=== PATIENT | male | born 1935 | race Caucasian/White ===

== ENCOUNTER → 2019-02-09 13:01 | Outpatient (CLI) | payer MEDICARE, SELFPAY ==
--- NOTE | 2019-02-09 13:15 | US_ITS ---
US Kidney CLINICAL INDICATION: ITS.REASON: ELEVATED KIDNEY FUNCTION, FATIGUE ORDERING PHYSICIAN: German Chacon PATIENT AGE: 83 years Comparison: None FINDINGS: The right kidney is 10 x 5 cm. No hydronephrosis or renal mass evident. There is mild cortical thinning. The left kidney is 11 x 5 cm with mild cortical thinning. There are 2 small cysts of left kidney one in the mid aspect 15 mm one in the lower pole at 17 mm . No hydronephrosis IMPRESSION: 1. No hydronephrosis. 2. Mild bilateral renal cortical thinning with 2 small left renal cysts
--- NOTE | 2019-02-09 13:15 | US_ITS ---
US urinary bladder CLINICAL INDICATION: ITS.REASON: ELEVATED KIDNEY FUNCTION, FATIGUE ORDERING PHYSICIAN: German Chacon PATIENT AGE: 83 years Comparison: None FINDINGS: Urinary bladder has an unremarkable appearance with a full bladder volume calculated to be 114 mL . Post void volume is calculated to be 16 mL's. No obvious bladder mass or other significant anomalies. IMPRESSION: Low full bladder volume of 115 mL with mild amount of postvoid residual urine otherwise negative urinary bladder ultrasound
[2019-02-09 14:10] LABS: Creatinine,Serum 1.77 mg/dL (0.70-1.30)
[2019-02-09 14:41] LABS: Collection Time,Urine 24 hours; Total Volume,Urine 1600 mL (250-2400)
[2019-02-09 14:47] LABS: Creatinine 24 Hour,Urine 1120 mg/24hr (630-2500); Creatinine,Urine Random 70 mg/dL (20-320); Patient Height,Urine 71 inches; Patient Weight,Urine 190 lbs
[2019-02-09 14:48] LABS: Total Protein 24 Hour,Urine 96 mg/24 hr (40-90); Total Protein,Urine Random < 6.0 mg/dL (0.0-11.9)
== END ==
PROVIDERS: Visit Provider Internal Medicine
DX: R94.4 Abnormal results of kidney function studies (principal); R53.83 Other fatigue
CPT/HCPCS: 36415; 76770; 76857; 82575; 84155

== ENCOUNTER → 2019-04-24 10:42 | Outpatient (CLI) | payer MEDICARE, SELFPAY ==
[2019-04-24 11:14] LABS: Microscopic, Urine URINE MICROSCOPIC (MICROSCOPIC)
[2019-04-24 12:33] LABS: Basophils % 0.7 % (0.1-2.0); Eosinophils # 0.5 K/mm3 (0.0-0.4); Eosinophils % 11.7 % (0.1-12.0); Hematocrit 37.3 % (42.0-52.0); Hemoglobin 12.1 g/dL (14.1-18.0); Lymphocytes # 1.3 K/mm3 (0.7-4.5); Lymphocytes % 28.1 % (10-50); Mean Corpuscular HGB Conc 32.4 g/dL (31.8-35.4); Mean Corpuscular Hemoglobin 31.8 pg (27.0-31.2); Mean Platelet Volume 9.5 fl (7.4-10.4); Monocytes # 0.3 K/mm3 (0.1-1.0); Monocytes % 6.7 % (1.7-9.3); Neutrophils # 2.4 K/mm3 (1.8-7.8); Neutrophils % 52.8 % (37.0-80.0); Platelet Count 110 K/mm3 (142-424); Red Blood Count 3.81 M/mm3 (4.60-6.20); Red Cell Distribution Width 14.7 % (11.5-17.5); White Blood Count 4.6 K/mm3 (4.8-10.8)
[2019-04-24 13:29] LABS: Albumin Level 3.9 gm/dL (3.4-5.0); Anion Gap 14.5 mEq/L (5-15); Blood Urea Nitrogen 40 mg/dL (7-18); Calcium 9.2 mg/dL (8.5-10.1); Carbon Dioxide 26 mmol/L (21.0-32.0); Chloride 108 mmol/L (98-107); Creatinine,Serum 1.69 mg/dL (0.70-1.30); Estimated Glomerular Filt Rate 39 ml/min (>60); GFR (African American) 47 ML/MIN (>60); Glucose 87 mg/dL (74-106); Phosphorous 3.7 mg/dL (2.4-4.9); Potassium 4.5 mmoL/L (3.5-5.1); Sodium 144 mmol/L (136-145)
[2019-04-24 14:52] LABS: Alanine Aminotransferase 20 U/L (12-78); Albumin Level 3.9 gm/dL (3.4-5.0); Albumin/Globulin Ratio 1.6 (1.1-1.8); Alkaline Phosphatase 90 U/L (46-116); Anion Gap 15.5 mEq/L (5-15); Aspartate Amino Transferase 11 U/L (15-37); Bilirubin,Total 0.5 mg/dL (0.2-1.0); Blood Urea Nitrogen 40 mg/dL (7-18); Calcium 9.2 mg/dL (8.5-10.1); Carbon Dioxide 24 mmol/L (21.0-32.0); Chloride 108 mmol/L (98-107); Chol/HDL Ratio 2.3 (1-3.5); Cholesterol 92 mg/dL (140-200); Creatinine,Serum 1.71 mg/dL (0.70-1.30); Estimated Glomerular Filt Rate 38 ml/min (>60); GFR (African American) 46 ML/MIN (>60); Globulin 2.5 gm/dl (1.3-3.2); Glucose 88 mg/dL (74-106); HDL Cholesterol 40 mg/dL (27-67); LDL Cholesterol 34 mg/dL (0-130); Potassium 4.5 mmoL/L (3.5-5.1); Sodium 143 mmol/L (136-145); Total Protein,Serum 6.4 gm/dL (6.4-8.2); Triglycerides 92 mg/dL (30-200); Uric Acid 3.3 mg/dL (2.6-7.2); VLDL Cholesterol 18 mg/dL (0-40)
[2019-04-24 16:00] LABS: Appearance,Urine CLEAR (Clear); Bilirubin,Urine Negative (Negative); Blood, Urine Negative (Negative); Color,Urine STRAW (Yellow); Glucose,Urine (UA) Negative (Negative); Ketones,Urine Negative (Negative); Leukocyte Esterase,Urine Negative (Negative); Nitrate,Urine Negative (Negative); PH,Urine 5.5 (5.0-8.5); Protein,Urine Negative (Negative); Urobilinogen,Urine 0.2 EU/dl (0.2)
[2019-04-24 16:05] LABS: Creatinine,Urine Random 27 mg/dL (20-320)
[2019-04-24 16:30] LABS: Bacteria,Urine Trace /lpf
[2019-04-25 18:43] LABS: Vitamin D 25 Hydroxy 34.7 ng/mL (30.0-100.0)
[2019-04-26 17:12] LABS: Parathyroid Hormone Intact 34 pg/mL (15-65)
== END ==
PROVIDERS: Internal Medicine; Visit Provider Internal Medicine Nephrology
DX: N18.3 Chronic kidney disease, stage 3 (moderate) (principal); E78.5 Hyperlipidemia, unspecified; I12.9 Hypertensive chronic kidney disease with stage 1 through stage 4 chronic kidney disease, or unspecified chronic kidney disease
CPT/HCPCS: 80053; 80061; 80069; 81001; 82570; 82652; 83970; 84155; 84550; 85025

== ENCOUNTER → 2019-04-29 14:08 | Outpatient (POV) | payer MEDICARE, SELFPAY | PROVIDERS: Visit Provider Internal Medicine Nephrology | DX: Z00.00 Encounter for general adult medical examination without abnormal findings (principal) ==

== ENCOUNTER → 2019-09-08 10:07 | Outpatient (CLI) | payer MEDICARE, SELFPAY ==
[2019-09-08 10:29] LABS: Basophils % 0.3 % (0.1-2.0); Eosinophils # 0.2 K/mm3 (0.0-0.4); Hematocrit 41.7 % (42.0-52.0); Hemoglobin 12.6 g/dL (14.1-18.0); Lymphocytes # 1.4 K/mm3 (0.7-4.5); Lymphocytes % 35.2 % (10-50); Mean Corpuscular HGB Conc 30.1 g/dL (31.8-35.4); Mean Corpuscular Hemoglobin 31.8 pg (27.0-31.2); Mean Corpuscular Volume 105.3 fl (80-94); Mean Platelet Volume 9.8 fl (7.4-10.4); Monocytes # 0.3 K/mm3 (0.1-1.0); Monocytes % 7.6 % (1.7-9.3); Platelet Count 119 K/mm3 (142-424); Red Blood Count 3.96 M/mm3 (4.60-6.20); Red Cell Distribution Width 14.8 % (11.5-17.5); White Blood Count 3.9 K/mm3 (4.8-10.8)
[2019-09-08 10:33] LABS: Creatinine,Urine Random 76 mg/dL (20-320); Total Protein,Urine Random 16.3 mg/dL (0.0-11.9)
[2019-09-08 12:04] LABS: Albumin Level 3.6 gm/dL (3.4-5.0); Anion Gap 12.2 mEq/L (5-15); Blood Urea Nitrogen 26 mg/dL (7-18); Calcium 8.9 mg/dL (8.5-10.1); Carbon Dioxide 29 mmol/L (21.0-32.0); Chloride 111 mmol/L (98-107); Creatinine,Serum 1.54 mg/dL (0.70-1.30); Estimated Glomerular Filt Rate 43 ml/min (>60); GFR (African American) 52 ML/MIN (>60); Glucose 92 mg/dL (74-106); Phosphorous 3.4 mg/dL (2.4-4.9); Potassium 5.2 mmoL/L (3.5-5.1); Sodium 147 mmol/L (136-145); Uric Acid 2.7 mg/dL (2.6-7.2)
== END ==
PROVIDERS: Visit Provider Internal Medicine Nephrology
DX: N18.3 Chronic kidney disease, stage 3 (moderate) (principal)
CPT/HCPCS: 36415; 80069; 82570; 84155; 84550; 85025

== ENCOUNTER → 2019-09-16 09:57 | Outpatient (POV) | payer MEDICARE, SELFPAY | PROVIDERS: Visit Provider Internal Medicine Nephrology | DX: Z00.00 Encounter for general adult medical examination without abnormal findings (principal) ==

== ENCOUNTER → 2021-05-16 09:13 | Outpatient (POV) | payer MEDICARE, SELFPAY | PROVIDERS: Visit Provider Nurse Practitioner Family | DX: Z00.00 Encounter for general adult medical examination without abnormal findings (principal) ==

== ENCOUNTER → 2021-05-30 10:24 | Outpatient (POV) | payer MEDICARE, SELFPAY | PROVIDERS: Visit Provider Dermatology | DX: Z00.00 Encounter for general adult medical examination without abnormal findings (principal) ==

== ENCOUNTER → 2021-06-20 13:19 | Outpatient (CLI) | payer MEDICARE, SELFPAY ==
--- NOTE | 2021-06-20 | ECG_ITS ---
APPROVED REPORT Exam: Resting ECG HR:47 bpm ECG Measurements Heart Rate 47 AXES AZ 218 P 69 QRSd 130 QRS 123 QT 474 T -5 QTc 419 Conclusion Marked sinus bradycardia with 1st degree AV block Nonspecific intraventricular block T wave abnormality, consider inferior ischemia Suspect limb lead error Abnormal ECG Electronically signed by : German Chacon MD 07/12/2021 16:08:53
== END ==
PROVIDERS: PCP Internal Medicine; Visit Provider Internal Medicine
DX: I49.9 Cardiac arrhythmia, unspecified (principal)
CPT/HCPCS: 93005

== ENCOUNTER → 2021-08-07 17:57 | Outpatient (CLI) | payer MEDICARE, SELFPAY ==
[2021-08-07 18:54] LABS: Alanine Aminotransferase 24 U/L (12-78); Albumin Level 3.8 g/dl (3.5-5.0); Albumin/Globulin Ratio 1.9 (1.1-1.8); Alkaline Phosphatase 71 U/L (38-126); Aspartate Amino Transferase 29 U/L (17-59); Bilirubin,Total 0.7 mg/dl (0.2-1.3); Blood Urea Nitrogen 28 mg/dl (9-20); Calcium 9.3 mg/dl (8.4-10.2); Carbon Dioxide 28 mmol/L (22.0-30.0); Chloride 108 mmol/L (98-107); Chol/HDL Ratio 2.5 (1-3.5); Cholesterol 120 mg/dl (140-200); Estimated Glomerular Filt Rate 52 ml/min (>60); GFR (African American) 63 ML/MIN (>60); Glucose 71 mg/dl (74-100); HDL Cholesterol 48 mg/dl (40-60); Sodium 143 mmol/L (136-145); Total Protein,Serum 5.8 g/dl (6.3-8.2); Triglycerides 135 mg/dl (30-150); Uric Acid 3.8 mg/dl (3.5-8.5); VLDL Cholesterol 27 mg/dL (0-40)
[2021-08-07 19:05] LABS: Direct LDL Cholesterol 45.06 mg/dL (100-129)
== END ==
PROVIDERS: Visit Provider Internal Medicine
DX: I25.10 Atherosclerotic heart disease of native coronary artery without angina pectoris (principal); I10 Essential (primary) hypertension; E78.5 Hyperlipidemia, unspecified; I73.9 Peripheral vascular disease, unspecified; J44.9 Chronic obstructive pulmonary disease, unspecified; M10.9 Gout, unspecified
CPT/HCPCS: 80053; 80061; 84550

== ENCOUNTER 2021-12-11 10:50 | Inpatient (IN) | payer MEDICARE, SELFPAY ==
[2021-12-11] VITALS (20 sets, daily range): BP systolic 115–172; BP diastolic 51–65; PULSE 53–76; RESP 14–22; TEMP 36.6–36.9; O2SAT 94–99; BMI 25.0; BMI 23.6
--- NOTE | 2021-12-11 10:50 | PC.NURSE ---
ED MD at
--- NOTE | 2021-12-11 11:05 | XR_ITS ---
FINAL REPORT CLINICAL HISTORY: upper abdomen/chest pain COMPARISON: November 15, 2016 FINDINGS: A single portable view of the chest was obtained. The heart size and pulmonary vascularity are within normal limits. There is evidence of median sternotomy. There is mild scarring. There is a chronic left 5th lateral rib fracture. IMPRESSION: No active cardiopulmonary disease. Reviewed, Interpreted and Dictated by Soren Cruz III, MD Transcribed by Savanna العلي Authenticated by Soren Cruz III, MD on 12/11/2021 12:54:30 PM [facility]
--- NOTE | 2021-12-11 11:41 | PC.NURSE ---
Radiology at bedside
--- NOTE | 2021-12-11 11:58 | HMH.EDGENADL ---
ED Disposition Clinical Impression: Small bowel obstruction Disposition: Home, Self-Care Condition on Discharge: Good Instructions: DI for Acute Abdominal Pain Referrals: German Chacon [Primary Care Provider] - - Critical Care Critical Care Time: Yes Attestation: On 12/11/21, the high probability of a clinically significant, sudden or life threatening deterioration of the following system(s) required my full and direct attention, intervention and personal management. The time I documented below is in addition to time spent performing reported procedures but includes the following listed in this critical care notation. Total Critical Care Time: 60 Vital system(s) involved:: Metabolic Failure My critical care processes included: Assessment & monitoring of V/S, Initial and Re-exams, Data Review/Interpretation, Coordinating Care, Medication Orders and management, Documentation Medical Decision Making - Medical Records Medical records reviewed: Yes: I reviewed the patient's medical records. - Noel Inquiry Pt receiving controlled substance: Yes Noel was queried for this patient: No Risks and benefits of using a controlled substance: were not discussed with pt by me Vital Signs: 12/11/21 10:45 12/11/21 12:08 12/11/21 12:15 Temperature 97.8 F Temperature Source Oral Pulse Rate 69 71 Pulse Rate [Left Radial] 53 L Respiratory Rate 17 17 14 Blood Pressure Blood Pressure [Right Arm] 150/56 H Blood Pressure Mean Blood Pressure Mean [Right Arm] 87 02 Sat by Pulse Oximetry 96 98 96 Oxygen Delivery Method Room Air Oxygen Flow Rate (LPM) 12/11/21 12:30 12/11/21 12:45 12/11/21 14:35 Temperature Temperature Source Pulse Rate 66 68 72 Pulse Rate [Left Radial] Respiratory Rate 22 18 Blood Pressure 160/55 H 157/57 H Blood Pressure [Right Arm] Blood Pressure Mean 120 Blood Pressure Mean [Right Arm] 02 Sat by Pulse Oximetry 98 99 Oxygen Delivery Method Oxygen Flow Rate (LPM) 12/11/21 17:11 12/11/21 18:24 Temperature Temperature Source Pulse Rate 65 73 Pulse Rate [Left Radial] Respiratory Rate 15 Blood Pressure 161/62 H 172/65 H Blood Pressure [Right Arm] Blood Pressure Mean Blood Pressure Mean [Right Arm] 02 Sat by Pulse Oximetry 97 97 Oxygen Delivery Method Nasal Cannula Oxygen Flow Rate (LPM) 2 - Lab Data Lab results reviewed: Yes: I reviewed the patient's lab results. Lab Results 12/11/21 11:27: WBC 7.0, RBC 4.19 L, Hgb 13.8 L, Hct 43.1, MCV 102.8 H, MCH 32.9 H, MCHC 32.0, RDW 14.6, Plt Count 104 L, MPV 10.2, Neut % (Auto) 89.2 H, Lymph % (Auto) 6.3 L, Gregory % (Auto) 3.3, Eos % (Auto) 0.7, Baso % (Auto) 0.5, Neut # (Auto) 6.2, Lymph # (Auto) 0.4 L, Gregory # (Auto) 0.2, Eos # (Auto) 0.1, Baso # (Auto) 0.0, Total Counted 100, Neutrophils % (Manual) 88 H, Lymphocytes % (Manual) 8 L, Monocytes % (Manual) 4, Platelet Estimate Moderate decrease, Macrocytosis 1+ 12/11/21 11:27: Magnesium 1.1 L, Troponin I 0.02, NT-Pro-B Natriuret Pep 2730 H 12/11/21 11:27: Lactate 0.8 12/11/21 11:27: Blood Type O Positive, Antibody Screen Negative 12/11/21 11:27: Lipase 40 12/11/21 11:35: PT 10.1, INR 0.95 12/11/21 11:35: BUN 25 H, Creatinine 1.30 H, Estimated Creat Clear 49, Estimated GFR 52 L, Est GFR ( Amer) 63 12/11/21 11:35: Sodium 142, Potassium 4.6, Chloride 110 H, Carbon Dioxide 24, Anion Gap 12.6, BUN 26 H, Creatinine 1.30 H, Estimated Creat Clear 49, Estimated GFR 52 L, Est GFR ( Amer) 63, Glucose 148 H, Calcium 9.1, Total Bilirubin 0.6, AST 33, ALT 24, Alkaline Phosphatase 87, Total Protein 6.7, Albumin 4.4, Globulin 2.3, Albumin/Globulin Ratio 1.9 H 12/11/21 14:16: Troponin I 0.01 12/11/21 14:29: SARS-CoV-2 (PCR) Not detected, Influenza A Untype (PCR) Not detected, Influenza Type B (PCR) Not detected 12/11/21 19:15: Lactate 0.6 L 12/11/21 19:45: Urine Color Yellow, Urine Appearance Clear, Urine pH 5.5, Ur Specific [place] 1.015, Urine Protein Negati
[2021-12-11 12:04] LABS: Lactic Acid 0.8 mmol/L (0.7-2.1)
[2021-12-11 12:13] LABS: Basophils % 0.5 % (0.1-2.0); Eosinophils # 0.1 K/mm3 (0.0-0.4); Eosinophils % 0.7 % (0.1-12.0); Hematocrit 43.1 % (42.0-52.0); Hemoglobin 13.8 g/dL (14.1-18.0); Lymphocytes # 0.4 K/mm3 (0.7-4.5); Lymphocytes % 6.3 % (10-50); Mean Corpuscular Hemoglobin 32.9 pg (27.0-31.2); Mean Corpuscular Volume 102.8 fl (80-94); Mean Platelet Volume 10.2 fl (7.4-10.4); Monocytes # 0.2 K/mm3 (0.1-1.0); Monocytes % 3.3 % (1.7-9.3); Neutrophils # 6.2 K/mm3 (1.8-7.8); Neutrophils % 89.2 % (37.0-80.0); Platelet Count 104 K/mm3 (142-424); Red Blood Count 4.19 M/mm3 (4.60-6.20); Red Cell Distribution Width 14.6 % (11.5-17.5)
[2021-12-11 12:15] LABS: Lipase 40 U/L (23-300); Magnesium 1.1 mg/dl (1.6-2.3)
[2021-12-11 12:18] LABS: MANUAL DIFFERENTIAL MANUAL DIFFERENTIAL (MANUAL DIFF)
[2021-12-11 12:27] LABS: NT Pro Brain Natriuretic Pep. 2730 pg/mL (0-450); Troponin I 0.02 ng/ml (0.00-0.034)
[2021-12-11 13:11] LABS: Blood Urea Nitrogen 25 mg/dl (9-20); Creatinine Clearance Estimated 49 mL/min (50-200); Estimated Glomerular Filt Rate 52 ml/min (>60); GFR (African American) 63 ML/MIN (>60)
[2021-12-11 13:21] LABS: Lymphocytes % 8 % (10-50); Monocytes % 4 % (2-9); Neutrophils % 88 % (42-76); Platelet Estimate Moderate Decrease; Total Cells Counted 100
[2021-12-11 13:22] LABS: Macrocytosis 1+
[2021-12-11 13:42] LABS: INR 0.95 (0.9-1.1); Prothrombin Time 10.1 seconds (9.2-12.1)
--- NOTE | 2021-12-11 13:49 | PC.NURSE ---
patient to CT with health physics technician
--- NOTE | 2021-12-11 13:56 | PC.NURSE ---
Addendum entered by Safia Galenao 12/11/21 13:57: Patient refused CTA; MD aware and is talking with vascular at this time Original Note: patient back to room from CT
--- NOTE | 2021-12-11 13:56 | HMH.ITSTN ---
sPOKE TO THE ER DR Patient refused contrast and scan. The ER Dr came and talked to him about it but he did not want to do the contrast or the scan. She is going to go over with family and come back. hold for now
--- NOTE | 2021-12-11 14:08 | US_ITS ---
FINAL REPORT CLINICAL HISTORY: patient refused CT in ER today; AAA screen and confirm patency in aorta FINDINGS: Limited sonographic images were obtained of the abdomen to evaluate the abdominal aorta and iliac arteries. The abdominal aorta measures up to 3.2 cm in greatest dimension. There is mild mural thrombus. The iliac arteries are within normal limits. IMPRESSION: 3.2 cm abdominal aortic ectasia with mild mural thrombus. Reviewed, Interpreted and Dictated by Soren Cruz III, MD Transcribed by Lou Kellogg Authenticated by Soren Cruz III, MD on 12/11/2021 04:55:15 PM [facility]
--- NOTE | 2021-12-11 14:23 | PC.NURSE ---
Ultrasound at bedside
--- NOTE | 2021-12-11 14:23 | PC.NURSE ---
2nd troponin sent to lab at 14:15
--- NOTE | 2021-12-11 14:47 | ECG_ITS ---
APPROVED REPORT Exam: Resting ECG HR:72 bpm ECG Measurements Heart Rate 72 AXES AR 230 P 93 QRSd 137 QRS 100 QT 398 T -38 QTc 422 Conclusion SINUS RHYTHM WITH FIRST DEGREE AV BLOCK WITH OCCASIONAL VENTRICULAR PREMATURE COMPLEXES BORDERLINE RIGHT AXIS DEVIATION [QRS AXIS > 90] INTRAVENTRICULAR CONDUCTION DELAY [130+ ms QRS DURATION] ABNORMAL ECG UNCONFIRMED REPORT Electronically signed by : Alex Mckeon MD 12/12/2021 14:07:24
[2021-12-11 14:55] LABS: Coronavirus 19, PCR Not Detected (NotDetected); Influenza A, PCR Not Detected (NotDetected); Influenza B, PCR Not Detected (NotDetected)
[2021-12-11 15:05] LABS: Troponin I 0.01 ng/ml (0.00-0.034)
--- NOTE | 2021-12-11 15:32 | CT_ITS ---
FINAL REPORT CLINICAL HISTORY: abd pain// history of an AAA repair years ago FINDINGS: CTA ABDOMEN AND PELVIS Post contrast axial imaging of the abdomen and pelvis was obtained utilizing a CTA protocol. Coronal and sagittal reformatted images were submitted. This study was performed with techniques to keep radiation doses as low as reasonably achievable (ALARA). Individualized dose reduction techniques using automated exposure control or adjustment of mA and/or kV according to the patient's size were employed. There are severe changes of emphysema with mild scarring. There is mild bibasilar atelectasis. There is a small amount of ascites in the upper abdomen. The liver has an irregular contour that may represent cirrhosis. There has been cholecystectomy. There is mild biliary ductal dilatation. There are small right renal cysts. There is a fat containing nodule in the left adrenal gland measuring 19 mm consistent with a myelolipoma. There are distended fluid-filled small bowel loops in the lower abdomen and upper pelvis measuring up to 3.1 cm in diameter. These are most worrisome for closed loop small bowel obstruction. There is edema in the small bowel mesentery in this region. There is diverticulosis of the sigmoid colon. The appendix is normal. There is a 3.5 cm infrarenal abdominal aortic aneurysm. There is mild stenosis at the origin of the left renal artery, less than 50%. The DRE is occluded. 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 There is an 18 mm left common iliac artery aneurysm. There appears to be a focal dissection of the proximal left common iliac artery. 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 IMPRESSION: Findings most worrisome for closed loop small bowel obstruction. Occlusion of the DRE. 3.5 cm infrarenal abdominal aortic aneurysm with a focal chronic dissection. Aneurysmal dilatation of the bilateral common iliac arteries with an apparent focal dissection of the proximal left common iliac artery. 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 Reviewed, Interpreted and Dictated by Soren Cruz III, MD Transcribed by Matthew Vargas Authenticated by Soren Cruz III, MD on 12/11/2021 04:55:24 PM [facility]
--- NOTE | 2021-12-11 15:39 | PC.NURSE ---
patient to CT with rad techs
--- NOTE | 2021-12-11 15:51 | PC.NURSE ---
patient back from CT with rad techs
--- NOTE | 2021-12-11 17:32 | PC.NURSE ---
pt spoke with dr oakley regarding pt ct scan. dr oakley states this is not a surgical candidate here and needs to be transferred.
--- NOTE | 2021-12-11 17:57 | PC.NURSE ---
Calling [facility] for ED MD
--- NOTE | 2021-12-11 18:07 | PC.NURSE ---
ROMANA SALAMANCA on phone with Dr. Terrazas with
--- NOTE | 2021-12-11 18:31 | PC.NURSE ---
ED MD on phone with MDs
--- NOTE | 2021-12-11 18:32 | PC.NURSE ---
[facility] requested [employer] of images. rad called to send images
--- NOTE | 2021-12-11 18:37 | PC.NURSE ---
Paged Dr. Gr for ED MD
--- NOTE | 2021-12-11 18:38 | PC.NURSE ---
ROMANA MD on phone with Dr. Gr
--- NOTE | 2021-12-11 19:09 | PC.NURSE ---
NARINDER SALAMANCA SPOKE WITH MATTHEW @ [facility] THEY DO NOT THINK HE IS A A SURGICAL CANDIDATE AT THIS TIME , CALLED DR GABRIEL BACK HE SAID HE WILL CONSULT IF ADMITTED . REPEAT LACTIC BEING DRAWN AND GAURI SPOKE WITH DR BLOOM REGARDING POSSIBLE ADMISSION
[2021-12-11 19:41] LABS: Lactic Acid 0.6 mmol/L (0.7-2.1)
[2021-12-11 19:51] LABS: Microscopic, Urine URINE MICROSCOPIC (MICROSCOPIC)
[2021-12-11 20:08] LABS: Appearance,Urine CLEAR (Clear); Bilirubin,Urine Negative (Negative); Blood, Urine Negative (Negative); Color,Urine YELLOW (Yellow); Glucose,Urine (UA) Negative (Negative); Ketones,Urine Negative (Negative); Leukocyte Esterase,Urine Negative (Negative); Nitrate,Urine Negative (Negative); PH,Urine 5.5 (5.0-8.5); Protein,Urine Negative (Negative); Specific Gravity, Urine 1.015 (1.005-1.030); Urobilinogen,Urine 0.2 EU/dl (0.2)
[2021-12-11 20:16] LABS: Bacteria,Urine Trace /lpf; Squamous Epithelial Cell,Urine Occasional #/hpf (0-5)
[2021-12-11 20:38] LABS: Alanine Aminotransferase 24 U/L (12-78); Albumin Level 4.4 g/dl (3.5-5.0); Albumin/Globulin Ratio 1.9 (1.1-1.8); Alkaline Phosphatase 87 U/L (38-126); Anion Gap 12.6 mEq/L (5-15); Aspartate Amino Transferase 33 U/L (17-59); Bilirubin,Total 0.6 mg/dl (0.2-1.3); Blood Urea Nitrogen 26 mg/dl (9-20); Calcium 9.1 mg/dl (8.4-10.2); Carbon Dioxide 24 mmol/L (22.0-30.0); Chloride 110 mmol/L (98-107); Creatinine Clearance Estimated 49 mL/min (50-200); Estimated Glomerular Filt Rate 52 ml/min (>60); GFR (African American) 63 ML/MIN (>60); Globulin 2.3 g/dL (1.3-3.2); Glucose 148 mg/dl (74-100); Potassium 4.6 mmoL/L (3.5-5.1); Sodium 142 mmol/L (136-145); Total Protein,Serum 6.7 g/dl (6.3-8.2)
--- NOTE | 2021-12-11 22:56 | PC.NURSE ---
patient up to floor via stretcher at this time.
[2021-12-12] VITALS (7 sets, daily range): BP systolic 120–178; BP diastolic 64–82; PULSE 73–89; RESP 16–20; TEMP 36.4–36.9; O2SAT 90–96; BMI 23.6
--- NOTE | 2021-12-12 06:30 | XR_ITS ---
PROCEDURE INFORMATION: Exam: XR Complete Acute Abdomen Series Including Chest Exam date and time: 12/12/2021 6:30 AM Age: 86 years old Clinical indication: Abdominal pain; Additional info: Abd TECHNIQUE: Imaging protocol: XR complete acute abdomen series, including 2 or more views of the abdomen and a single view chest. COMPARISON: CR XR CHEST PORTABLE 12/11/2021 11:37 AM FINDINGS: Tubes, catheters and devices: Surgical clips, RUQ. Lungs: Mild linear atelectasis/fibrosis. No new focal consolidation. Old left rib fracture laterally. Pleural spaces: Trace right pleural effusion. No pneumothorax. Heart/Mediastinum: Sternotomy. CABG. Gastrointestinal tract: Mild to moderately dilated loops of small bowel are noted which appear grossly similar to the psychological science professor image from CT 12/11/2021. Findings are compatible with at least a small bowel obstruction. Some colonic gas is noted. Intraperitoneal space: No free air. Organs: Contrast noted in the urinary bladder from a prior exam. Vasculature: Vascular calcifications. Bones/joints: No acute fracture. Soft tissues: Normal. IMPRESSION: 1. Mild to moderately dilated loops of small bowel are noted which appear grossly similar to the psychological science professor image from CT 12/11/2021. Findings are compatible with at least a small bowel obstruction. 2. Trace right pleural effusion.
[2021-12-12 07:09] LABS: Anion Gap 9.4 mEq/L (5-15); Blood Urea Nitrogen 22 mg/dl (9-20); Calcium 8.6 mg/dl (8.4-10.2); Carbon Dioxide 25 mmol/L (22.0-30.0); Chloride 113 mmol/L (98-107); Creatinine Clearance Estimated 50 mL/min (50-200); Estimated Glomerular Filt Rate 58 ml/min (>60); GFR (African American) 70 ML/MIN (>60); Glucose 88 mg/dl (74-100); Potassium 4.4 mmoL/L (3.5-5.1); Sodium 143 mmol/L (136-145)
[2021-12-12 07:10] LABS: Basophils % 0.2 % (0.1-2.0); Eosinophils # 0.1 K/mm3 (0.0-0.4); Eosinophils % 1.1 % (0.1-12.0); Hematocrit 40.7 % (42.0-52.0); Hemoglobin 12.6 g/dL (14.1-18.0); Lymphocytes % 18.2 % (10-50); Mean Corpuscular Hemoglobin 32.4 pg (27.0-31.2); Mean Corpuscular Volume 104.4 fl (80-94); Mean Platelet Volume 10.1 fl (7.4-10.4); Monocytes # 0.4 K/mm3 (0.1-1.0); Monocytes % 8.1 % (1.7-9.3); Neutrophils # 3.8 K/mm3 (1.8-7.8); Neutrophils % 72.4 % (37.0-80.0); Platelet Count 98 K/mm3 (142-424); Red Cell Distribution Width 14.7 % (11.5-17.5); White Blood Count 5.3 K/mm3 (4.8-10.8)
--- NOTE | 2021-12-12 07:23 | P.CONPHA_ITS ---
[facility] Pharmacy VTE Monitoring - Patient Demographics Admission date: 12/11/21 Report Date: 12/12/21 Time: 07:24 Allergies/Adverse Reactions: Patient Allergies No Known Allergies Allergy (Verified 09/07/19 15:29) Height: 1.83 m Weight: 79.095 kg Patient Problems: Current Active Problems Small bowel obstruction (Acute) - VTE Risk Labs: VTE Related Lab Results Hgb 12.6 g/dL (14.1-18.0) L 12/12/21 05:58 Hct 40.7 % (42.0-52.0) L 12/12/21 05:58 Plt Count 98 K/mm3 (142-424) L 12/12/21 05:58 PT 10.1 seconds (9.2-12.1) 12/11/21 11:35 INR 0.95 (0.9-1.1) 12/11/21 11:35 BUN 22 mg/dl (9-20) H 12/12/21 05:58 Creatinine 1.20 mg/dl (0.66-1.25) 12/12/21 05:58 Estimated Creat Clear 50 mL/min (50-200) 12/12/21 05:58 Was VTE Risk Assessment Performed: Yes VTE Score: 6 VTE Risk Level: Moderate Risk Clinical Trial Participant: No - Prophylaxis VTE Prophylaxis Ordered?: Yes Types of VTE Prophylaxis: TEDS Knee High
--- NOTE | 2021-12-12 08:22 | HMH.GSCON ---
*Admission Date: 12/11/21 *Reason for consult:: Bowel obstruction *History of present illness: Patient is an 86-year-old male with apparent prior history of abdominal aortic aneurysm repair via midline incision. He presented to the emergency department yesterday afternoon with complaints of periumbilical pain radiating into his back. He had no associated nausea or vomiting. He was found to have some mild tenderness in the periumbilical location on examination. Initially the patient was refusing imaging in the emergency department. He did ultimately undergo CT scan of the abdomen and pelvis which interestingly revealed findings concerning for closed-loop small bowel obstruction, occlusion of DRE, infrarenal abdominal aortic aneurysm repair with chronic focal dissection and bilateral common iliac artery with focal dissection. Surgery was contacted regarding the small bowel obstruction. Given the patient's other findings on CT scan with vascular comorbidities it was recommended the patient may need transfer. [facility] vascular surgery was contacted by the ER physician and felt that the vascular findings were chronic in nature and that bowel obstruction could be handled by local general surgeon. Patient was admitted for inpatient management and surgical consultation. Since admission patient feels better. His periumbilical pain has resolved. He does state that he is passing gas. Review of Systems - Review of Systems Review of systems:: unable to obtain - *Neurologic Denies localized weakness, Denies headache(s), Denies numbness, Denies fainting [facility] History I have reviewed the patient's past medical history: Yes Medical History: Reports:: Cancer (SKIN), Congestive Heart Failure, Coronary Artery Disease, Hyperlipidemia, Hypertension Denies:: Diabetes Mellitus Type 1, Diabetes Mellitus Type 2, Internal Pacemaker, MRSA, Seizures *Have you ever received a pneumonia vaccine?: Yes *Have you received a flu vaccine this season?: Yes Other Medical History: Reports: Arthritis. Denies: Blood Transfusion Reaction Other Surgeries: Yes: CABG, Cholecystectomy, Skin Cancer Excision, Other. No: Pacemaker Amputation: No Fractures: No - *Social History Smoking Status: Former smoker Alcohol Intake: never Substance Use Type: denies use *Occupational Status:: retired Housing: house *Travel in the last 8 weeks: None Family Hx:: Hypertension, Stroke, Other Meds Home Medications Medication Instructions Recorded Confirmed Type allopurinol 300 mg tablet 300 mg PO DAILY #90 tab 08/17/19 12/11/21 History amlodipine 10 mg tablet 10 mg PO AM #90 tab 08/17/19 12/11/21 History amlodipine 5 mg tablet 5 mg PO DAILY #90 tab 08/17/19 12/11/21 History colchicine 0.6 mg tablet 0.6 mg PO DAILY #90 tab 08/17/19 12/11/21 History ferrous sulfate 325 mg (65 mg 325 mg PO TID PRN #270 tab 08/17/19 12/11/21 History iron) tablet furosemide 40 mg tablet 20 mg PO DAILY #45 tab 08/17/19 12/11/21 History hydrochlorothiazide 25 mg tablet 25 mg PO DAILY #90 tab 08/17/19 12/11/21 History isosorbide mononitrate 30 mg 30 mg PO DAILY #90 tab 08/17/19 12/11/21 History tablet,extended release 24 hr losartan 100 mg tablet 100 mg PO DAILY #90 tab 08/17/19 12/11/21 History lovastatin 40 mg tablet 40 mg PO HS #90 tab 08/17/19 12/11/21 History metoprolol succinate 100 mg 100 mg PO DAILY #90 tab 08/17/19 12/11/21 History tablet,extended release 24 hr potassium chloride 20 mEq 40 meq PO DAILY #180 tab 08/17/19 12/11/21 History tablet,extended release(part/cryst) Albuterol Sulfate [Proventil-HFA 2 puffs IH QID 12/11/21 12/11/21 History 90mcg/puff Inh] Aspirin [Aspirin 81mg EC Tab] 81 mg PO DAILY 12/11/21 12/11/21 History Allergies Allergy/AdvReac Type Severity Reaction Status Date / Time No Known Allergies Allergy Verified 09/07/19 15:29 Exam Vital signs and Labs for Last 24 Hours: Temp Pulse Resp BP Pulse Ox 98.1 F 73
--- NOTE | 2021-12-12 08:26 | HMH.PHAINT ---
Home med rec complete
--- NOTE | 2021-12-12 20:02 | PC.NURSE ---
Pt has rested well in his room. he refused to get up to the chair or ambulate this shift. pt has elisa hose in place. lungs are clear, bowels active, no bm this shift. pt able to ambulate with standby. nad noted. pt is [employer] but pleasant
--- NOTE | 2021-12-12 20:42 | HMH.HP ---
*Admission Date: 12/11/21 *Chief complaint: Abdominal Pain *History of present illness: Patient is an 86-year-old male with a history significant for CAD s/p 5 vessel CABG, AAA s/p repair is presenting for chief complaint of periumbilical abdominal pain with radiation to the back since 4 AM this morning. Patient states he has been in his usual state of health yesterday. Associated symptoms include nausea but patient denies vomiting, hematemesis, blood per rectum. He had a normal bowel movement yesterday but states that since that he has had difficulty passing anything including gas. Denies difficulty urinating, hematuria. Denies fever, infectious symptoms, chest pain, shortness of breath. Patient has COPD and does not use oxygen baseline at home. Denies blood thinner use aside from daily aspirin (Per Rocio Johnson MD) 12/11/21 Abd/Pelvis CT: FINDINGS: CTA ABDOMEN AND PELVIS Post contrast axial imaging of the abdomen and pelvis was obtained utilizing a CTA protocol. Coronal and sagittal reformatted images were submitted. This study was performed with techniques to keep radiation doses as low as reasonably achievable (ALARA). Individualized dose reduction techniques using automated exposure control or adjustment of mA and/or kV according to the patient's size were employed. There are severe changes of emphysema with mild scarring. There is mild bibasilar atelectasis. There is a small amount of ascites in the upper abdomen. The liver has an irregular contour that may represent cirrhosis. There has been cholecystectomy. There is mild biliary ductal dilatation. There are small right renal cysts. There is a fat containing nodule in the left adrenal gland measuring 19 mm consistent with a myelolipoma. There are distended fluid-filled small bowel loops in the lower abdomen and upper pelvis measuring up to 3.1 cm in diameter. These are most worrisome for closed loop small bowel obstruction. There is edema in the small bowel mesentery in this region. There is diverticulosis of the sigmoid colon. The appendix is normal. There is a 3.5 cm infrarenal abdominal aortic aneurysm. There is mild stenosis at the origin of the left renal artery, less than 50%. The DRE is occluded. 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 There is an 18 mm left common iliac artery aneurysm. There appears to be a focal dissection of the proximal left common iliac artery. 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 IMPRESSION: Findings most worrisome for closed loop small bowel obstruction. Occlusion of the DRE. 3.5 cm infrarenal abdominal aortic aneurysm with a focal chronic dissection. Aneurysmal dilatation of the bilateral common iliac arteries with an apparent focal dissection of the proximal left common iliac artery. 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 Reviewed, Interpreted and Dictated by Soren Cruz III, MD . [facility] History I have reviewed the patient's past medical history: Yes Medical History: Reports:: Cancer (SKIN), Congestive Heart Failure, Coronary Artery Disease, Hyperlipidemia, Hypertension Denies:: Diabetes Mellitus Type 1, Diabetes Mellitus Type 2, Internal Pacemaker, MRSA, Seizures *Have you ever received a pneumonia vaccine?: Yes *Have you received a flu vaccine this season?: Yes Other Medical History: Reports: Arthritis. Denies: Blood Transfusion Reaction Other Surgeries: Yes: CABG, Cholecystectomy, Skin Cancer Excision, Other. No: Pacemaker Amputation: No Fractures: No - *Social History Smoking Status: Former smoker Alcohol Intake: never Substance Use Type: denies use *Occupational Status:: retired Housing: house *Travel in the last 8 weeks: None Family Hx:: Hypertension, Stroke, Other Review of Systems - Review of Systems Review of systems:: pertinent systems reviewed and negative unless documented below - Constitutional Denies body ache(
[2021-12-13] VITALS: BP 145/58; PULSE 83; RESP 20; TEMP 37.3; O2SAT 90
[2021-12-13 04:00] VITALS: BP 157/43; PULSE 92; RESP 16; TEMP 36.8; O2SAT 94
[2021-12-13 06:00] VITALS: BMI 24.0
--- NOTE | 2021-12-13 06:00 | FL_ITS ---
FINAL REPORT CLINICAL HISTORY: . small bowel obstruction FINDINGS: SMALL BOWEL FOLLOW THROUGH HISTORY: Generalized abdominal pain. Abnormal CT. PROCEDURE: The patient ingested Gastrografin. Serial radiographs films were obtained. 8 radiographs were obtained. FINDINGS: Preliminary plastic cutter film demonstrates gas throughout small bowel loops. Transit time to the colon is normal at 2 hours. Proximal small bowel loops are dilated. There are decompressed distal small bowel loops. IMPRESSION: Findings consistent with partial small bowel obstruction. Films reviewed , interpreted and dictated by Dr. Cruz. Transcribed by José Luis Yeager PA-C. Reviewed, Interpreted and Dictated by Soren Cruz III, MD Transcribed by KNADIS Abad Authenticated by Soren Cruz III, MD on 12/13/2021 12:24:[address] [facility]
[2021-12-13 06:49] LABS: Basophils % 0.3 % (0.1-2.0); Eosinophils # 0.2 K/mm3 (0.0-0.4); Eosinophils % 2.7 % (0.1-12.0); Hematocrit 41.2 % (42.0-52.0); Hemoglobin 12.6 g/dL (14.1-18.0); Lymphocytes # 1.5 K/mm3 (0.7-4.5); Lymphocytes % 26.7 % (10-50); Mean Corpuscular HGB Conc 30.6 g/dL (31.8-35.4); Mean Corpuscular Hemoglobin 32.5 pg (27.0-31.2); Mean Corpuscular Volume 106.1 fl (80-94); Mean Platelet Volume 10.9 fl (7.4-10.4); Monocytes # 0.4 K/mm3 (0.1-1.0); Monocytes % 7.1 % (1.7-9.3); Neutrophils # 3.6 K/mm3 (1.8-7.8); Neutrophils % 63.2 % (37.0-80.0); Platelet Count 97 K/mm3 (142-424); Red Blood Count 3.89 M/mm3 (4.60-6.20); Red Cell Distribution Width 14.7 % (11.5-17.5); White Blood Count 5.7 K/mm3 (4.8-10.8)
[2021-12-13 07:15] LABS: Anion Gap 9.1 mEq/L (5-15); Blood Urea Nitrogen 20 mg/dl (9-20); Calcium 8.9 mg/dl (8.4-10.2); Carbon Dioxide 25 mmol/L (22.0-30.0); Chloride 112 mmol/L (98-107); Creatinine Clearance Estimated 62 mL/min (50-200); Estimated Glomerular Filt Rate 71 ml/min (>60); GFR (African American) 86 ML/MIN (>60); Glucose 79 mg/dl (74-100); Potassium 4.1 mmoL/L (3.5-5.1); Sodium 142 mmol/L (136-145)
--- NOTE | 2021-12-13 07:16 | P.PN_ITS ---
Subjective Narrative: Overall doing okay . He is currently in the bathroom and states that he is having some activity . He is reportedly passing flatus and has had at least some form of a bowel movement. Progress Note: A&P (1) Small bowel obstruction Status: Acute Assessment and plan: Likely resolving versus partial/incomplete. He is currently having some return of bowel function. Small bowel follow-through ordered for today (still reasonable to obtain for improved diagnostic accuracy despite some clinical improvement). (2) CAD (coronary artery disease) Status: Acute (3) HTN (hypertension) Status: Acute (4) HLD (hyperlipidemia) Status: Acute (5) S/P AAA repair using bifurcation graft Status: Acute Exam Vital signs and Labs for Last 24 Hours: Temp Pulse Resp BP Pulse Ox 98.3 F 92 H 16 157/43 H 94 L 12/13/21 04:00 12/13/21 04:00 12/13/21 04:00 12/13/21 04:00 12/13/21 04:00 Laboratory Results - last 24 hr 12/12/21 05:58: WBC 5.3, RBC 3.90 L, Hgb 12.6 L, Hct 40.7 L, MCV 104.4 H, MCH 32.4 H, MCHC 31.0 L, RDW 14.7, Plt Count 98 L, MPV 10.1, Neut % (Auto) 72.4, Lymph % (Auto) 18.2, [place] % (Auto) 8.1, Eos % (Auto) 1.1, Baso % (Auto) 0.2, Neut # (Auto) 3.8, Lymph # (Auto) 1.0, [place] # (Auto) 0.4, Eos # (Auto) 0.1, Baso # (Auto) 0.0 12/12/21 05:58: Sodium 143, Potassium 4.4, Chloride 113 H, Carbon Dioxide 25, Anion Gap 9.4, BUN 22 H, Creatinine 1.20, Estimated Creat Clear 50, Estimated GFR 58 L, Est GFR ( Amer) 70, Glucose 88 D, Calcium 8.6 12/13/21 06:12: WBC 5.7, RBC 3.89 L, Hgb 12.6 L, Hct 41.2 L, MCV 106.1 H, MCH 32.5 H, MCHC 30.6 L, RDW 14.7, Plt Count 97 L, MPV 10.9 H, Neut % (Auto) 63.2, Lymph % (Auto) 26.7, [place] % (Auto) 7.1, Eos % (Auto) 2.7, Baso % (Auto) 0.3, Neut # (Auto) 3.6, Lymph # (Auto) 1.5, [place] # (Auto) 0.4, Eos # (Auto) 0.2, Baso # (Auto) 0.0 I & O for Last 24 hours: Intake & Output 12/10/21 12/11/21 12/12/21 12/13/21 11:59 11:59 11:59 11:59 Output Total 300 / 300 675 / 675 Balance -300 / -300 -675 / -675 Weight 185 lb 174 lb 6 oz 177 lb 11.2 oz - Constitutional no acute distress - *Routine Respiratory Exam Absent: respiratory distress - *Routine Cardiovascular Exam Absent: tachycardia
[2021-12-13 16:00] VITALS: BP 154/78; PULSE 95; RESP 16; TEMP 36.8; O2SAT 95
[2021-12-13 16:11] VITALS: BMI 23.8
[2021-12-13 19:10] VITALS: BP 125/66; PULSE 40; RESP 18; TEMP 36.7; O2SAT 95
[2021-12-13 20:00] VITALS: O2SAT 91
[2021-12-13 23:24] VITALS: O2SAT 91
[2021-12-14] VITALS (9 sets, daily range): BP systolic 143–152; BP diastolic 62–73; PULSE 60–85; RESP 18–20; TEMP 36.4–36.9; O2SAT 91–95
--- NOTE | 2021-12-14 00:25 | P.PN_ITS ---
Internal Medicine - PN: Subj *Date: 12/13/21 *Time: 21:00 Interval history: out of room in [facility] this am - late entry Exam Vital signs and Labs for Last 24 Hours: Temp Pulse Resp BP Pulse Ox 98.0 F 40 L 18 125/66 91 L 12/13/21 19:10 12/13/21 19:10 12/13/21 19:10 12/13/21 19:10 12/13/21 23:24 Laboratory Results - last 24 hr 12/13/21 06:12: WBC 5.7, RBC 3.89 L, Hgb 12.6 L, Hct 41.2 L, MCV 106.1 H, MCH 32.5 H, MCHC 30.6 L, RDW 14.7, Plt Count 97 L, MPV 10.9 H, Neut % (Auto) 63.2, Lymph % (Auto) 26.7, [place] % (Auto) 7.1, Eos % (Auto) 2.7, Baso % (Auto) 0.3, Neut # (Auto) 3.6, Lymph # (Auto) 1.5, [place] # (Auto) 0.4, Eos # (Auto) 0.2, Baso # (Auto) 0.0 12/13/21 06:12: Sodium 142, Potassium 4.1, Chloride 112 H, Carbon Dioxide 25, Anion Gap 9.1, BUN 20, Creatinine 1.00, Estimated Creat Clear 62, Estimated GFR 71, Est GFR ( Amer) 86 D, Glucose 79, Calcium 8.9 I & O for Last 24 hours: Intake & Output 12/11/21 12/12/21 12/13/21 12/14/21 11:59 11:59 11:59 11:59 Intake Total 240 / 240 240 / 240 Output Total 300 / 300 675 / 675 400 / 400 Balance -300 / -300 -435 / -435 -160 / -160 Weight 185 lb 174 lb 6 oz 177 lb 11.2 oz 176 lb 5.917 oz - Constitutional no acute distress - *Routine HEENT Exam Head: Present: normocephalic Eye: Present: EOMI, PERRL ENT: Present: mucous membranes dry - *Routine Neck Exam Absent: JVD - *Routine Respiratory Exam Absent: respiratory distress - *Routine Cardiovascular Exam Present: RRR - *Routine Abdominal Exam Present: soft - *Routine Extremities Exam Present: full ROM - *Routine Skin Exam Present: intact - *Routine Neurological Exam Present: alert, CN II-XII intact - Routine Psychiatric Exam Present: normal affect Assessment and Plan (1) Small bowel obstruction Status: Acute Category: Medical Code(s): K56.609 - Unspecified intestinal obstruction, unspecified as to partial versus complete obstruction (2) CAD (coronary artery disease) Status: Acute Category: Medical Code(s): I25.10 - Atherosclerotic heart disease of [place] coronary artery without angina pectoris (3) HTN (hypertension) Status: Acute Category: Medical Code(s): I10 - Essential (primary) hypertension (4) HLD (hyperlipidemia) Status: Acute Category: Medical Code(s): E78.5 - Hyperlipidemia, unspecified (5) S/P AAA repair using bifurcation graft Status: Acute Category: Surgical Code(s): Z95.828 - Presence of other vascular implants and grafts; Z86.79 - Personal history of other diseases of the circulatory system
--- NOTE | 2021-12-14 05:22 | PC.NURSE ---
Pt a + o x4, pleasant and cooperative with care. Pt reported he had multiple loose BM yesterday and through the night. Pt has not voiced any complaints to staff. Pt is tolerating clear liquids well. Able to walk to bathroom with standby assist. Call boswell within reach.
--- NOTE | 2021-12-14 06:00 | XR_ITS ---
PROCEDURE INFORMATION: Exam: XR Complete Acute Abdomen Series Including Chest Exam date and time: 12/14/2021 6:00 AM Age: 86 years old Clinical indication: Condition or disease; Intestinal condition; Obstruction; Additional info: Partial sbo TECHNIQUE: Imaging protocol: XR complete acute abdomen series, including 2 or more views of the abdomen and a single view chest. COMPARISON: CR XR ACUTE ABDOMEN SERIES 12/12/2021 6:12 AM FINDINGS: Lungs: Evidence of emphysematous changes and mild linear atelectasis/fibrosis. No new dense focal consolidation. Old granulomatous disease. Pleural spaces: Trace bilateral pleural effusions and/or pleural thickening, similar to previous. Heart/Mediastinum: Sternotomy. CABG. Gastrointestinal tract: Contrast is noted in the colon from a prior exam. Mildly prominent loop of air-filled small bowel in the pelvis. Otherwise, nonspecific bowel gas pattern. No findings to suggest overt obstruction. Intraperitoneal space: No free air. Vasculature: Vascular calcifications. Bones/joints: Old left rib fractures. Mild scoliosis. Soft tissues: Normal. IMPRESSION: 1. Contrast is noted in the colon from a prior exam. Mildly prominent loop of air-filled small bowel in the pelvis. Otherwise, nonspecific bowel gas pattern. No findings to suggest overt obstruction. 2. Trace bilateral pleural effusions and/or pleural thickening, similar to previous. 3. Please see the report for additional findings.
--- NOTE | 2021-12-14 06:53 | HMH.GSPN ---
Subjective Patient reports: feels better, flatus, bowel movement (He reports multiple loose stools) Progress Note: A&P (1) Small bowel obstruction Status: Acute Assessment and plan: Persistent distended small bowel loops consistent with ileus versus partial obstruction. The patient continues to have multiple loose stools and he is passing flatus. Contrast within the colon on follow-up films confirm no complete mechanical obstruction. Continue serial abdominal exams Slowly advance diet as he tolerates (2) CAD (coronary artery disease) Status: Acute (3) HTN (hypertension) Status: Acute (4) HLD (hyperlipidemia) Status: Acute (5) S/P AAA repair using bifurcation graft Status: Acute Exam Vital signs and Labs for Last 24 Hours: Temp Pulse Resp BP Pulse Ox 98.3 F 61 20 147/71 H 95 12/14/21 04:00 12/14/21 04:00 12/14/21 04:00 12/14/21 04:00 12/14/21 04:00 Laboratory Results - last 24 hr 12/13/21 06:12: WBC 5.7, RBC 3.89 L, Hgb 12.6 L, Hct 41.2 L, MCV 106.1 H, MCH 32.5 H, MCHC 30.6 L, RDW 14.7, Plt Count 97 L, MPV 10.9 H, Neut % (Auto) 63.2, Lymph % (Auto) 26.7, [place] % (Auto) 7.1, Eos % (Auto) 2.7, Baso % (Auto) 0.3, Neut # (Auto) 3.6, Lymph # (Auto) 1.5, [place] # (Auto) 0.4, Eos # (Auto) 0.2, Baso # (Auto) 0.0 12/13/21 06:12: Sodium 142, Potassium 4.1, Chloride 112 H, Carbon Dioxide 25, Anion Gap 9.1, BUN 20, Creatinine 1.00, Estimated Creat Clear 62, Estimated GFR 71, Est GFR ( Amer) 86 D, Glucose 79, Calcium 8.9 I & O for Last 24 hours: Intake & Output 12/11/21 12/12/21 12/13/21 12/14/21 11:59 11:59 11:59 11:59 Intake Total 240 / 240 240 / 240 Output Total 300 / 300 675 / 675 400 / 400 Balance -300 / -300 -435 / -435 -160 / -160 Weight 185 lb 174 lb 6 oz 177 lb 11.2 oz 176 lb 5.917 oz - Constitutional no acute distress - *Routine Respiratory Exam Absent: respiratory distress - *Routine Cardiovascular Exam Absent: tachycardia - *Routine Abdominal Exam Present: soft
[2021-12-14 07:08] LABS: Basophils % 0.2 % (0.1-2.0); Eosinophils # 0.2 K/mm3 (0.0-0.4); Eosinophils % 4.4 % (0.1-12.0); Hematocrit 37.4 % (42.0-52.0); Hemoglobin 11.7 g/dL (14.1-18.0); Lymphocytes # 0.8 K/mm3 (0.7-4.5); Lymphocytes % 19.5 % (10-50); Mean Corpuscular HGB Conc 31.2 g/dL (31.8-35.4); Mean Corpuscular Hemoglobin 32.7 pg (27.0-31.2); Mean Corpuscular Volume 104.8 fl (80-94); Mean Platelet Volume 10.3 fl (7.4-10.4); Monocytes # 0.3 K/mm3 (0.1-1.0); Monocytes % 7.6 % (1.7-9.3); Neutrophils # 2.8 K/mm3 (1.8-7.8); Neutrophils % 68.2 % (37.0-80.0); Platelet Count 87 K/mm3 (142-424); Red Blood Count 3.57 M/mm3 (4.60-6.20); Red Cell Distribution Width 14.8 % (11.5-17.5); White Blood Count 4.2 K/mm3 (4.8-10.8)
[2021-12-14 07:09] LABS: Anion Gap 7.7 mEq/L (5-15); Blood Urea Nitrogen 16 mg/dl (9-20); Calcium 8.6 mg/dl (8.4-10.2); Carbon Dioxide 28 mmol/L (22.0-30.0); Chloride 108 mmol/L (98-107); Creatinine Clearance Estimated 61 mL/min (50-200); Estimated Glomerular Filt Rate 80 ml/min (>60); GFR (African American) 97 ML/MIN (>60); Glucose 89 mg/dl (74-100); Potassium 3.7 mmoL/L (3.5-5.1); Sodium 140 mmol/L (136-145)
--- NOTE | 2021-12-14 08:38 | CA_ITS ---
APPROVED REPORT EXAM: Comprehensive 2D, Doppler, and color-flow Echocardiogram Personal Security Specialist: Alessandra Astorga CRT Ht: 6 ft 0 in Wt: 176lbs BSA: 2.02 BP: 147/71 mmHg Indications: Hyperlipidemia, Hypertension/HDD, CABG, AAA graft, SBO. 2D Dimensions LVOT 2.03 cm (M/F) 1.5-2.5 LA Volume 48.20 mL LA Volume Index 23.90 mL/m2 (M/F) 16-34 M-Mode Dimensions RVDd 2.29 cm (0.9-2.6) LA Diam 4.40 cm (1.9-4.0) LVDd 6.32 cm (3.5-5.7) Ao Diam 4.07 cm (2.0-3.7) LVDs 5.15 cm (3.5-5.7) IVSd 1.33 cm (0.6-1.1) PWd 1.05 cm (0.6-1.1) EF (Teich) 37.50% FS 18.50% EDV (Teich) 202.60 mL TAPSE 2.26 (<1.7) ESV (Teich) 126.60 mL LV Diastology E Decel Time 353.00 (160-240 msec) E/A Ratio 0.57 MED E' 4.80 (< 7 cm/sec) MED A' 9.80 cm/s E'/MED E' Ratio 13.21 (>14) LAT E' 6.90 (<10 cm/sec) LAT A' 15.50 cm/s E/LAT E' Ratio 9.19 (>14) Aortic Valve LVOT Max 167.00 (70-110 cm/s) LVOT VTI 37.02 cm AoV Peak Jeovany. 358.00 (50-130 cm/s) AI PHT 285.00 ms AO Peak GR. 51.60 mmHg AO Mean GR. 27.20 (<5 mmHg) AO VTI 69.22 (18-25 cm) MARISELA (VTI) 1.73 (2.5-4.5 cm2) Mitral Valve MV E Max Jeovany. 63.00 (40-130 cm/s) MV A Velocity 111.00 (40-130 cm/s) E/A Ratio 0.57 MV Decel. Time 353.00 (160-240 ms) MV PHT 103.00 ms Pulmonary Valve PV Peak Velocity 93.00 (50-150 cm/s) Tricuspid Valve TR P. Velocity 330.00 cm/s RAP Estimate 10.00 mmHg RVSP 53.70 mmHg Left Ventricle Left atrium is mildly enlarged, left ventricle is mildly dilated, visually estimated ejection fraction approximately 40%, there is marked hypokinesis involving the basal septum, inferior basal and posterolateral wall. Grade 1 diastolic dysfunction seen without tissue Doppler evidence of raise left atrial pressure. Right Ventricle Right atrium and right ventricle are normal size and contractility. Aortic Valve Aortic valve is thickened and calcified morphology is not well visualized, the maximum aortic outflow velocity recorded is 33.3 m/s, resulting in a mean gradient across aortic valve of 23 mmHg, valve area is not accurately calculated, there is likely moderate aortic stenosis, there is mild aortic insufficiency. Mitral Valve Mitral valve leaflets are minimally thickened, there is no mitral stenosis, there is mild mitral regurgitation. Tricuspid Valve Tricuspid valve grossly normal, there is mild tricuspid regurgitation, calculated right ventricular systolic pressure is 41 mmHg. Pulmonic Valve Pulmonic valve is poorly visualized. Great Vessels Aortic root is normal size. Inferior vena cava is poorly visualized. Pericardium No significant pericardial effusion noted. Conclusion 1. Mildly enlarged left atrium, mildly dilated left ventricle, mild concentric left ventricular hypertrophy, estimated ejection fraction approximately 40% with multiple segmental wall motion abnormality described above, grade 1 diastolic dysfunction seen without tissue Doppler evidence of raise left atrial pressure. 2. Thickened and calcified aortic valve likely moderate aortic stenosis, there is mild aortic insufficiency. 3. Mild mitral and tricuspid regurgitation, calculated right ventricular systolic pressure is 41 mmHg. 4. No significant pericardial effusion noted. 5. Inferior vena cava is poorly visualized. Electronically signed by : Masoud Mcconnell MD 12/15/2021 12:09:02
--- NOTE | 2021-12-14 09:10 | P.PN_ITS ---
Internal Medicine - PN: Subj *Date: 12/14/21 *Time: 12:28 Interval history: 86-year-old male patient resting in bed respirations easy/even weeks, grandson at bedside. Patient reports he feels a lot better today than he did yesterday he also reports being up to bathroom with loose bowel movements and starting to form. Exam Vital signs and Labs for Last 24 Hours: Temp Pulse Resp BP Pulse Ox 98.4 F 85 18 152/71 H 94 L 12/14/21 07:50 12/14/21 07:50 12/14/21 07:50 12/14/21 07:50 12/14/21 07:50 Laboratory Results - last 24 hr 12/14/21 06:44: WBC 4.2 L D, RBC 3.57 L, Hgb 11.7 L, Hct 37.4 L, MCV 104.8 H, MCH 32.7 H, MCHC 31.2 L, RDW 14.8, Plt Count 87 L, MPV 10.3, Neut % (Auto) 68.2, Lymph % (Auto) 19.5, [place] % (Auto) 7.6, Eos % (Auto) 4.4, Baso % (Auto) 0.2, Neut # (Auto) 2.8, Lymph # (Auto) 0.8, [place] # (Auto) 0.3, Eos # (Auto) 0.2, Baso # (Auto) 0.0 12/14/21 06:44: Sodium 140, Potassium 3.7, Chloride 108 H, Carbon Dioxide 28, Anion Gap 7.7, BUN 16, Creatinine 0.90, Estimated Creat Clear 61, Estimated GFR 80, Est GFR ( Amer) 97, Glucose 89, Calcium 8.6 I & O for Last 24 hours: Intake & Output 12/11/21 12/12/21 12/13/21 12/14/21 23:59 23:59 23:59 23:59 Intake Total 480 / 480 Output Total 875 / 975 500 / 500 Balance -875 / -975 -20 / -20 Weight 174 lb 6 oz 174 lb 6 oz 176 lb 5.917 oz - Constitutional no acute distress - *Routine HEENT Exam Head: Present: normocephalic Eye: Present: EOMI ENT: Present: mucous membranes moist - *Routine Neck Exam Present: trachea midline. Absent: tracheal deviation - *Routine Respiratory Exam Present: CTA bilaterally. Absent: accessory muscle use - *Routine Cardiovascular Exam Present: RRR - *Routine Abdominal Exam Present: soft, normoactive bowel sounds, distended. Absent: tenderness, firm - *Routine Extremities Exam Present: full ROM, pulses intact. Absent: cyanosis, clubbing, edema, calf tenderness - *Routine Skin Exam Present: intact, dry. Absent: cyanosis, erythema - *Routine Neurological Exam Present: alert, oriented X3. Absent: motor deficit, altered mental status - Routine Psychiatric Exam Present: normal affect, normal thought process. Absent: suicidal ideation Assessment and Plan (1) Small bowel obstruction Status: Acute Category: Medical Code(s): K56.609 - Unspecified intestinal obstruction, unspecified as to partial versus complete obstruction (2) CAD (coronary artery disease) Status: Acute Category: Medical Code(s): I25.10 - Atherosclerotic heart disease of [place] coronary artery without angina pectoris (3) HTN (hypertension) Status: Acute Category: Medical Code(s): I10 - Essential (primary) hypertension (4) HLD (hyperlipidemia) Status: Acute Category: Medical Code(s): E78.5 - Hyperlipidemia, unspecified (5) S/P AAA repair using bifurcation graft Status: Acute Category: Surgical Code(s): Z95.828 - Presence of other vascular implants and grafts; Z86.79 - Personal history of other diseases of the circulatory system - Assessment and plan all Dx Assessment and Plan for all problems:: Rounded with Dr. Snyder, all orders per Dr. Snyder: 1. Full liquid diet 2. General surgery following
--- NOTE | 2021-12-14 11:29 | HMH.OTEV ---
OT Inpatient Evaluation Rehab OT IP Evaluation Start: 12/14/21 08:40 Freq: ONCE Status: Complete Protocol: Document 12/14/21 11:16 LALI (Rec: 12/14/21 11:29 [facility] [id number]) Rehab OT IP Assessment Subjective History Pt oriented x 3 on arrival. Pt agreeable to engage in therapy evaluation. Pt was admitted on 12/11/21 due to abdominal pain. Pt reports prior to being in the hosptial he lived at home alone in an apartment. Pt claims he was independent with all ADLS and IADLs. Pt reports he is able to dress himself, bathe himself, and feed himself. Pt also reports he does his cleaning, cooking, and laundry . Pt claims he only uses a cane out in public; for example he explains he uses his cane when he goes to [facility]. The followoing information was copied from history and physical report: Patient is an 86-year-old male with a history significant for CAD s/p 5 vessel CABG, AAA s/p repair is presenting for chief complaint of periumbilical abdominal pain with radiation to the back since 4 AM this morning. Patient states he has been in his usual state of health yesterday. Associated symptoms include nausea but patient denies vomiting, hematemesis, blood per rectum. He had a normal bowel movement yesterday but states that since that he has had difficulty passing anything including gas. Denies difficulty urinating, hematuria. Denies fever, infectious symptoms, chest pain, shortness of breath. Patient has COPD and does not use oxygen baselin
--- NOTE | 2021-12-14 11:54 | HMH.PTEV ---
Physical Therapy Evaluation Rehab PT IP Evaluation Start: 12/14/21 08:40 Freq: ONCE Status: Active Protocol: Document 12/14/21 11:52 PHOEliHORACIO (Rec: 12/14/21 11:53 PHORNE [id number]) Subjective/History History History 86 yoem adm to [facility] with SBO. He reports he lives alone and is generally independent with all mobility. Subjective Subjective No c/o this am. Rehab PT IP Eval Objective Appearance Patient Behavior Appropriate Patient Orientation Person,Place,Time Difficulty following instructions none Speech Pattern Clear Ambulation Patient Able to Ambulate Yes Ambulation Observation IP General Gait Pattern Observation No Deviations/Normal Ambulation Distance (feet) 30 Ambulation Assistive Device None Ambulation Ability Supervision/Stand by Balance Ability to Arise Able, uses arms to help Sitting Balance Steady, safe Standing Balance Steady, wide stance Dynamic Sitting Balance Ability Good Dynamic Standing Balance Ability Good Transfers Bed Transfer Ability Supervision/Stand by Chair Transfer Ability Supervision/Stand by Sit to Stand Bed Transfer Ability Supervision/Stand by Sit to Stand Chair Transfer Ability Supervision/Stand by Rehab PT IP prob,goals,plan Problems Date of Evaluation: 12/14/21 Discharge Plan PT Discharge Plan Pt appears to be at baseline for all mobility and is appropriate to return home once medically stable. G -code Required No Eval Complexity Eval Charge Codes 29175 - Moderate Complexity PHYSICIAN CERTIFICATION: I certify the specified therapy services for Jason Smyth are required, authorized, and reviewed every 30 days.
--- NOTE | 2021-12-14 14:31 | HMH.CNCARD ---
History of Present Illness Consult date: 12/14/21 Requesting physician: Luis Alvarez Chief complaint: abdominal pain History of present illness: This is an 86-year-old white gentleman who presented to the emergency department with abdominal pain and radiation into his back. The patient states that his abdominal pain was associated with nausea and he did throw up some bile on a few occasions. He states that he was also really constipated and felt very tight in his abdomen. He was found to have a small bowel obstruction. He states his abdominal pain and nausea have completely resolved at this point. He denies any chest pain or pressure. He denies any shortness of breath or edema. He denies any fever, chills, nausea, vomiting, diarrhea, PND or orthopnea. The patient does have a history of coronary artery disease status post 5 vessel CABG. He also has a AAA status post repair. He also has a history of hypertension and hyperlipidemia. He states that he saw his black belt in [place] a few months ago and was told that everything was good with his heart. He states that he goes for a yearly checkup by his black belt in [place] and was told he needed no further testing at his last visit. [facility] History I have reviewed the patient's past medical history: Yes Medical History: Reports:: Atherosclerotic Heart Disease, Cancer (SKIN), Congestive Heart Failure, Coronary Artery Disease, Hyperlipidemia, Hypertension Denies:: Diabetes Mellitus Type 1, Diabetes Mellitus Type 2, Internal Pacemaker, MRSA, Seizures *Have you ever received a pneumonia vaccine?: Yes *Have you received a flu vaccine this season?: Yes Other Medical History: Reports: Arthritis. Denies: Blood Transfusion Reaction Other Surgeries: Yes: CABG, Cholecystectomy, Skin Cancer Excision, Other. No: Pacemaker Amputation: No Fractures: No - *Social History Smoking Status: Former smoker Alcohol Intake: never Substance Use Type: denies use *Occupational Status:: retired Housing: house *Travel in the last 8 weeks: None Family Hx:: Hypertension, Stroke, Other Meds Home Medications Medication Instructions Recorded Confirmed Type allopurinol 300 mg tablet 300 mg PO DAILY #90 tab 08/17/19 12/11/21 History amlodipine 10 mg tablet 10 mg PO QODHS #90 tab 08/17/19 12/12/21 History amlodipine 5 mg tablet 5 mg PO MOWEFR #90 tab 08/17/19 12/12/21 History colchicine 0.6 mg tablet 0.6 mg PO DAILY #90 tab 08/17/19 12/11/21 History ferrous sulfate 325 mg (65 mg 325 mg PO TID PRN #270 tab 08/17/19 12/11/21 History iron) tablet furosemide 40 mg tablet 20 mg PO DAILY #45 tab 08/17/19 12/11/21 History hydrochlorothiazide 25 mg tablet 25 mg PO DAILY #90 tab 08/17/19 12/11/21 History isosorbide mononitrate 30 mg 30 mg PO DAILY #90 tab 08/17/19 12/11/21 History tablet,extended release 24 hr losartan 100 mg tablet 100 mg PO DAILY #90 tab 08/17/19 12/11/21 History lovastatin 40 mg tablet 40 mg PO HS #90 tab 08/17/19 12/11/21 History metoprolol succinate 100 mg 100 mg PO DAILY #90 tab 08/17/19 12/11/21 History tablet,extended release 24 hr potassium chloride 20 mEq 40 meq PO DAILY #180 tab 08/17/19 12/11/21 History tablet,extended release(part/cryst) Albuterol Sulfate [Proventil-HFA 2 puffs IH QID 12/11/21 12/11/21 History 90mcg/puff Inh] Aspirin [Aspirin 81mg EC Tab] 81 mg PO DAILY 12/11/21 12/11/21 History Allergies Allergy/AdvReac Type Severity Reaction Status Date / Time No Known Allergies Allergy Verified 09/07/19 15:29 Exam Vital signs and Labs for Last 24 Hours: Temp Pulse Resp BP Pulse Ox 98.1 F 60 20 143/67 H 91 L 12/14/21 11:35 12/14/21 12:00 12/14/21 11:35 12/14/21 11:35 12/14/21 11:35 Laboratory Results - last 24 hr 12/14/21 06:44: WBC 4.2 L D, RBC 3.57 L, Hgb 11.7 L, Hct 37.4 L, MCV 104.8 H, MCH 32.7 H, MCHC 31.2 L, RDW 14.8, Plt Count 87 L, MPV 10.3, Neut % (Auto) 68.2, Lymph % (Auto) 19.5, [place] % (Auto) 7.6, Eos % (Auto) 4.4, Baso %
[2021-12-15] VITALS (7 sets, daily range): BP systolic 89–148; BP diastolic 55–63; PULSE 60–104; RESP 18–22; TEMP 36.5–36.8; O2SAT 88–97; BMI 23.6
[2021-12-15 06:58] LABS: Anion Gap 5.6 mEq/L (5-15); Blood Urea Nitrogen 11 mg/dl (9-20); Calcium 8.5 mg/dl (8.4-10.2); Carbon Dioxide 30 mmol/L (22.0-30.0); Chloride 104 mmol/L (98-107); Creatinine Clearance Estimated 60 mL/min (50-200); Estimated Glomerular Filt Rate 80 ml/min (>60); GFR (African American) 97 ML/MIN (>60); Glucose 94 mg/dl (74-100); Potassium 3.6 mmoL/L (3.5-5.1); Sodium 136 mmol/L (136-145)
[2021-12-15 07:03] LABS: Basophils % 0.4 % (0.1-2.0); Eosinophils # 0.4 K/mm3 (0.0-0.4); Eosinophils % 9.1 % (0.1-12.0); Hematocrit 38.9 % (42.0-52.0); Hemoglobin 12.5 g/dL (14.1-18.0); Lymphocytes % 21.6 % (10-50); Mean Corpuscular HGB Conc 32.2 g/dL (31.8-35.4); Mean Corpuscular Hemoglobin 32.7 pg (27.0-31.2); Mean Corpuscular Volume 101.5 fl (80-94); Mean Platelet Volume 10.5 fl (7.4-10.4); Monocytes # 0.4 K/mm3 (0.1-1.0); Monocytes % 8.7 % (1.7-9.3); Neutrophils # 2.9 K/mm3 (1.8-7.8); Neutrophils % 60.1 % (37.0-80.0); Platelet Count 87 K/mm3 (142-424); Red Blood Count 3.83 M/mm3 (4.60-6.20); Red Cell Distribution Width 14.7 % (11.5-17.5); White Blood Count 4.9 K/mm3 (4.8-10.8)
--- NOTE | 2021-12-15 09:13 | HMH.GSPN ---
Subjective Patient reports: no new complaints, feels better, flatus, bowel movement Progress Note: A&P (1) Small bowel obstruction Status: Acute Assessment and plan: Likely resolving partial obstruction (prolonged ileus). He continues to have bowel function and states that he feels better . Slowly advance diet as tolerated (2) CAD (coronary artery disease) Status: Acute (3) HTN (hypertension) Status: Acute (4) HLD (hyperlipidemia) Status: Acute (5) S/P AAA repair using bifurcation graft Status: Acute (6) Cardiomyopathy Status: Acute (7) Abnormal echocardiogram Status: Acute Exam Vital signs and Labs for Last 24 Hours: Temp Pulse Resp BP Pulse Ox 98.2 F 76 20 124/55 L 88 L 12/15/21 08:00 12/15/21 08:00 12/15/21 08:00 12/15/21 08:00 12/15/21 08:00 Laboratory Results - last 24 hr 12/15/21 06:28: WBC 4.9, RBC 3.83 L, Hgb 12.5 L, Hct 38.9 L, MCV 101.5 H, MCH 32.7 H, MCHC 32.2, RDW 14.7, Plt Count 87 L, MPV 10.5 H, Neut % (Auto) 60.1, Lymph % (Auto) 21.6, [place] % (Auto) 8.7, Eos % (Auto) 9.1, Baso % (Auto) 0.4, Neut # (Auto) 2.9, Lymph # (Auto) 1.0, [place] # (Auto) 0.4, Eos # (Auto) 0.4, Baso # (Auto) 0.0 12/15/21 06:28: Sodium 136, Potassium 3.6, Chloride 104, Carbon Dioxide 30, Anion Gap 5.6, BUN 11 D, Creatinine 0.90, Estimated Creat Clear 60, Estimated GFR 80, Est GFR ( Amer) 97, Glucose 94, Calcium 8.5 I & O for Last 24 hours: Intake & Output 12/12/21 12/13/21 12/14/21 12/15/21 11:59 11:59 11:59 11:59 Intake Total 240 / 240 960 / 960 1320 / 1320 Output Total 300 / 300 675 / 675 400 / 400 Balance -300 / -300 -435 / -435 560 / 560 1320 / 1320 Weight 174 lb 6 oz 177 lb 11.2 oz 176 lb 5.917 oz 174 lb 3.2 oz - Constitutional no acute distress - *Routine Respiratory Exam Absent: respiratory distress - *Routine Cardiovascular Exam Absent: tachycardia - *Routine Abdominal Exam Present: soft
[2021-12-15 09:47] LABS: Alanine Aminotransferase 18 U/L (12-78); Albumin Level 3.1 g/dl (3.5-5.0); Alkaline Phosphatase 68 U/L (38-126); Aspartate Amino Transferase 27 U/L (17-59); Bilirubin,Direct 0.2 mg/dl (0.0-0.4); Bilirubin,Indirect 0.9 mg/dL (0.0-0.9); Bilirubin,Total 1.1 mg/dl (0.2-1.3); Bilirubin,Unconjugated 0.9 mg/dL (0.0-1.1); Chol/HDL Ratio 2.5 (1-3.5); Cholesterol 114 mg/dl (140-200); HDL Cholesterol 46 mg/dl (40-60); Triglycerides 122 mg/dl (30-150); VLDL Cholesterol 24 mg/dL (0-40)
[2021-12-15 09:59] LABS: Direct LDL Cholesterol 46.87 mg/dL (100-129)
--- NOTE | 2021-12-15 10:54 | HMH.PNCARD ---
Subjective Date: 12/15/21 Time: 09:00 Principal diagnosis: CHF non stemi Interval history: This is an 86-year-old white gentleman who presented to the emergency department with abdominal pain and nausea. He was found to have a small bowel obstruction. The patient states that his abdominal pain and nausea has resolved at this point. The patient also had an abnormal echocardiogram with an ejection fraction of 30 to 40%. He also had some ventricular bigeminy and trigeminy during the echocardiogram. The patient denies any chest pain or pressure. He denies any shortness of breath or edema. He denies any palpitations or racing of the heart. He denies any fever, chills, nausea, vomiting, diarrhea, PND or orthopnea. Exam Vital signs and Labs for Last 24 Hours: Temp Pulse Resp BP Pulse Ox 98.2 F 76 20 124/55 L 88 L 12/15/21 08:00 12/15/21 08:00 12/15/21 08:00 12/15/21 08:00 12/15/21 08:00 Laboratory Results - last 24 hr 12/15/21 06:28: WBC 4.9, RBC 3.83 L, Hgb 12.5 L, Hct 38.9 L, MCV 101.5 H, MCH 32.7 H, MCHC 32.2, RDW 14.7, Plt Count 87 L, MPV 10.5 H, Neut % (Auto) 60.1, Lymph % (Auto) 21.6, Terrell % (Auto) 8.7, Eos % (Auto) 9.1, Baso % (Auto) 0.4, Neut # (Auto) 2.9, Lymph # (Auto) 1.0, Terrell # (Auto) 0.4, Eos # (Auto) 0.4, Baso # (Auto) 0.0 12/15/21 06:28: Sodium 136, Potassium 3.6, Chloride 104, Carbon Dioxide 30, Anion Gap 5.6, BUN 11 D, Creatinine 0.90, Estimated Creat Clear 60, Estimated GFR 80, Est GFR ( Amer) 97, Glucose 94, Calcium 8.5 12/15/21 06:28: Total Bilirubin 1.1, Direct Bilirubin 0.2, Conjugated Bilirubin 0.0, Indirect Bilirubin 0.9, Unconjugated Bilirubin 0.9, AST 27, ALT 18, Alkaline Phosphatase 68, Total Protein 5.0 L D, Albumin 3.1 L, Triglycerides 122, Cholesterol 114 L, LDL Cholesterol Direct 46.87 L, VLDL Cholesterol 24, HDL Cholesterol 46, Cholesterol/HDL Ratio 2.5 I & O for Last 24 hours: Intake & Output 12/12/21 12/13/21 12/14/21 12/15/21 23:59 23:59 23:59 23:59 Intake Total 480 / 480 2039 480 / 480 Output Total 875 / 975 500 / 500 Balance -875 / -975 - / -2039 480 / 480 Weight 174 lb 6 oz 176 lb 5.917 oz 174 lb 3.2 oz - Constitutional no acute distress, average body habitus - *Routine HEENT Exam Head: Present: normocephalic, atraumatic Eye: Present: EOMI, PERRL ENT: Present: mucous membranes moist - *Routine Neck Exam Present: supple, full ROM, normal carotid upstroke. Absent: JVD, carotid bruit, lymphadenopathy - *Routine Respiratory Exam Present: CTA bilaterally - *Routine Cardiovascular Exam Present: RRR, Normal S1, Normal S2, murmur - *Routine Abdominal Exam Present: soft, normoactive bowel sounds. Absent: tenderness, distended - *Routine Extremities Exam Present: full ROM, pulses intact, normal capillary refill. Absent: cyanosis, clubbing, edema - *Routine Skin Exam Present: intact, warm. Absent: erythema, rash - *Routine Neurological Exam Present: alert, oriented X3, CN II-XII intact. Absent: sensory deficit, motor deficit Progress Note: A&P (1) Cardiomyopathy Status: Acute (2) Small bowel obstruction Status: Acute (3) CAD (coronary artery disease) Status: Acute (4) HTN (hypertension) Status: Acute (5) HLD (hyperlipidemia) Status: Acute (6) S/P AAA repair using bifurcation graft Status: Acute (7) Abnormal echocardiogram Status: Acute Assessment and Plan for All Diagnoses:: Plan: 1. The patient was admitted to the hospital with abdominal pain and nausea. He was found to have a small bowel obstruction. Will defer management to the primary care team and surgery. 2. The patient had an echocardiogram and the preliminary reading shows an EF of 30 to 40%. There is aortic stenosis but there is uncertainty in how much aortic stenosis there is. We are awaiting the official read. During his exam the patient did have some ventricular bigeminy and trigeminy noted. He was asymptom
--- NOTE | 2021-12-15 11:33 | DIET.NUTRFU ---
ARNOLDO reviewed GI soft diet for at home, Dr Alvarez review diet with him today during rounds. provided handout
--- NOTE | 2021-12-15 15:16 | CARE MANAGER ---
Patient sats on room air are 88% at rest, Home oxygen was set up with [facility] per patient family request. [employer] and order was sent, they will bring a portable to [facility].
--- NOTE | 2021-12-15 16:22 | PC.NURSE ---
Pt and grandson questioned this RN regarding discharge. Message left at MD Alvarez's office for discharge order.
--- NOTE | 2021-12-15 17:18 | HMH.DCSUM ---
General - General Admission date:: 12/11/21 Discharge date: 12/15/21 HPI HPI: Patient is an 86-year-old male with a history significant for CAD s/p 5 vessel CABG, AAA s/p repair is presenting for chief complaint of periumbilical abdominal pain with radiation to the back since 4 AM this morning. Patient states he has been in his usual state of health yesterday. Associated symptoms include nausea but patient denies vomiting, hematemesis, blood per rectum. He had a normal bowel movement yesterday but states that since that he has had difficulty passing anything including gas. Denies difficulty urinating, hematuria. Denies fever, infectious symptoms, chest pain, shortness of breath. Patient has COPD and does not use oxygen baseline at home. Denies blood thinner use aside from daily aspirin (Per Rocio Johnson MD) 12/11/21 Abd/Pelvis CT: FINDINGS: CTA ABDOMEN AND PELVIS Post contrast axial imaging of the abdomen and pelvis was obtained utilizing a CTA protocol. Coronal and sagittal reformatted images were submitted. This study was performed with techniques to keep radiation doses as low as reasonably achievable (ALARA). Individualized dose reduction techniques using automated exposure control or adjustment of mA and/or kV according to the patient's size were employed. There are severe changes of emphysema with mild scarring. There is mild bibasilar atelectasis. There is a small amount of ascites in the upper abdomen. The liver has an irregular contour that may represent cirrhosis. There has been cholecystectomy. There is mild biliary ductal dilatation. There are small right renal cysts. There is a fat containing nodule in the left adrenal gland measuring 19 mm consistent with a myelolipoma. There are distended fluid-filled small bowel loops in the lower abdomen and upper pelvis measuring up to 3.1 cm in diameter. These are most worrisome for closed loop small bowel obstruction. There is edema in the small bowel mesentery in this region. There is diverticulosis of the sigmoid colon. The appendix is normal. There is a 3.5 cm infrarenal abdominal aortic aneurysm. There is mild stenosis at the origin of the left renal artery, less than 50%. The DRE is occluded. 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 There is an 18 mm left common iliac artery aneurysm. There appears to be a focal dissection of the proximal left common iliac artery. 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 IMPRESSION: Findings most worrisome for closed loop small bowel obstruction. Occlusion of the DRE. 3.5 cm infrarenal abdominal aortic aneurysm with a focal chronic dissection. Aneurysmal dilatation of the bilateral common iliac arteries with an apparent focal dissection of the proximal left common iliac artery. 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 Reviewed, Interpreted and Dictated by Soren Cruz III, MD . Hospital Course Hospital Course: Abnormal Lab Results 12/15/21 06:28: RBC 3.83 L, Hgb 12.5 L, Hct 38.9 L, MCV 101.5 H, MCH 32.7 H, Plt Count 87 L, MPV 10.5 H 12/15/21 06:28: Total Protein 5.0 L D, Albumin 3.1 L, Cholesterol 114 L, LDL Cholesterol Direct 46.87 L Echo shows: 1. Mildly enlarged left atrium, mildly dilated left ventricle, mild concentric left ventricular hypertrophy, estimated ejection fraction approximately 40% with multiple segmental wall motion abnormality described above, grade 1 diastolic dysfunction seen without tissue Doppler evidence of raise left atrial pressure. 2. Thickened and calcified aortic valve likely moderate aortic stenosis, there is mild aortic insufficiency. 3. Mild mitral and tricuspid regurgitation, calculated right ventricular systolic pressure is 41 mmHg. 4. No significant pericardial effusion noted. 5. Inferior vena cava is poorly visualized. cardiology consult:Assessment and Plan for All Diagno
--- NOTE | 2021-12-15 17:47 | PC.NURSE ---
Spoke to Sidney Marin APRN about pt wanting to leave AMA. MI stated she was putting discharge in at this time.
--- NOTE | 2021-12-18 14:49 | CARE MANAGER ---
Contacted patient and [id number] regarding hospital discharge follow up. Patient states he had a spell last night. Discussed his medications and his follow up appointments. He is being very cautious with his diet. They deny any questions or concerns. DELORES Conti
== END 2021-12-15 18:01 | disposition home or self-care (01) | DRG 389 ==
LOC: ER 20:50 → 2ND 20:56
PROVIDERS: Nurse Practitioner Family; Admitting Provider Emergency Medicine; Emergency Provider Emergency Medicine; PCP Internal Medicine; Visit Provider Emergency Medicine
DX: K56.609 Unspecified intestinal obstruction, unspecified as to partial versus complete obstruction (principal); I42.9 Cardiomyopathy, unspecified; Z20.822 Contact with and (suspected) exposure to COVID-19; Z87.891 Personal history of nicotine dependence; Z95.1 Presence of aortocoronary bypass graft; J44.9 Chronic obstructive pulmonary disease, unspecified; E78.5 Hyperlipidemia, unspecified; I25.10 Atherosclerotic heart disease of native coronary artery without angina pectoris; I10 Essential (primary) hypertension; Z85.828 Personal history of other malignant neoplasm of skin
CPT/HCPCS: 36415; 71045; 74021; 74174; 74250; 76705; 80048; 80053; 80061; 80076; 81001; 82565; 83605; 83690; 83735; 83880; 84484; 84520; 85007; 85025; 85610; 86850; 93005; 93306; 94640; 94760; 94761; 96365; 96367; 96375; 97162; 97166; 99285; C9803; J2405; Q9967; U0003; U0005

== ENCOUNTER → 2022-02-05 13:26 | Outpatient (CLI) | payer MEDICARE, SELFPAY ==
[2022-02-05 14:35] LABS: Basophils % 0.6 % (0.1-2.0); Eosinophils # 0.3 K/mm3 (0.0-0.4); Eosinophils % 6.3 % (0.1-12.0); Hematocrit 36.5 % (42.0-52.0); Hemoglobin 11.7 g/dL (14.1-18.0); Lymphocytes # 0.9 K/mm3 (0.7-4.5); Lymphocytes % 21.2 % (10-50); Mean Corpuscular Hemoglobin 33.2 pg (27.0-31.2); Mean Corpuscular Volume 103.7 fl (80-94); Mean Platelet Volume 12.1 fl (7.4-10.4); Monocytes # 0.3 K/mm3 (0.1-1.0); Monocytes % 7.4 % (1.7-9.3); Neutrophils # 2.8 K/mm3 (1.8-7.8); Neutrophils % 64.5 % (37.0-80.0); Platelet Count 94 K/mm3 (142-424); Red Blood Count 3.52 M/mm3 (4.60-6.20); Red Cell Distribution Width 14.8 % (11.5-17.5); White Blood Count 4.3 K/mm3 (4.8-10.8)
[2022-02-05 15:12] LABS: Alanine Aminotransferase 15 U/L (12-78); Albumin Level 3.8 g/dl (3.5-5.0); Alkaline Phosphatase 79 U/L (38-126); Anion Gap 13.6 mEq/L (5-15); Aspartate Amino Transferase 25 U/L (17-59); Bilirubin,Total 0.7 mg/dl (0.2-1.3); Blood Urea Nitrogen 26 mg/dl (9-20); Calcium 9.1 mg/dl (8.4-10.2); Carbon Dioxide 27 mmol/L (22.0-30.0); Chloride 107 mmol/L (98-107); Chol/HDL Ratio 2.1 (1-3.5); Cholesterol 94 mg/dl (140-200); Estimated Glomerular Filt Rate 58 ml/min (>60); GFR (African American) 70 ML/MIN (>60); Globulin 1.9 g/dL (1.3-3.2); Glucose 84 mg/dl (74-100); HDL Cholesterol 44 mg/dl (40-60); Potassium 4.6 mmoL/L (3.5-5.1); Sodium 143 mmol/L (136-145); Total Protein,Serum 5.7 g/dl (6.3-8.2); Triglycerides 114 mg/dl (30-150); Uric Acid 3.2 mg/dl (3.5-8.5); VLDL Cholesterol 23 mg/dL (0-40)
[2022-02-05 15:30] LABS: Direct LDL Cholesterol < 30.00 mg/dL (100-129)
[2022-02-05 15:41] LABS: Prostate Specific Ag Screen 3.1 ng/ml (0.0-4.0)
== END ==
PROVIDERS: Visit Provider Internal Medicine
DX: I25.10 Atherosclerotic heart disease of native coronary artery without angina pectoris (principal); I10 Essential (primary) hypertension; D69.6 Thrombocytopenia, unspecified; E78.5 Hyperlipidemia, unspecified; I73.9 Peripheral vascular disease, unspecified; M10.9 Gout, unspecified; Z12.5 Encounter for screening for malignant neoplasm of prostate
CPT/HCPCS: 80053; 80061; 84550; 85025; G0103

== ENCOUNTER → 2022-02-15 11:12 | Outpatient (CLI) | payer MEDICARE, SELFPAY ==
[2022-02-15 11:53] LABS: Basophils % 0.5 % (0.1-2.0); Eosinophils # 0.1 K/mm3 (0.0-0.4); Hematocrit 38.2 % (42.0-52.0); Hemoglobin 12.3 g/dL (14.1-18.0); Lymphocytes # 0.7 K/mm3 (0.7-4.5); Lymphocytes % 20.6 % (10-50); Mean Corpuscular HGB Conc 32.2 g/dL (31.8-35.4); Mean Corpuscular Hemoglobin 33.4 pg (27.0-31.2); Mean Corpuscular Volume 103.7 fl (80-94); Mean Platelet Volume 10.9 fl (7.4-10.4); Monocytes # 0.2 K/mm3 (0.1-1.0); Monocytes % 6.8 % (1.7-9.3); Neutrophils # 2.3 K/mm3 (1.8-7.8); Neutrophils % 68.1 % (37.0-80.0); Platelet Count 91 K/mm3 (142-424); Red Blood Count 3.69 M/mm3 (4.60-6.20); Red Cell Distribution Width 15.2 % (11.5-17.5); White Blood Count 3.4 K/mm3 (4.8-10.8)
[2022-02-15 13:10] LABS: Iron 72 ug/dL (49-181)
[2022-02-15 13:20] LABS: Total Iron Binding Capacity 235 ug/dL (261-462)
[2022-02-15 13:47] LABS: Ferritin 494 ng/ml (17.9-464)
[2022-02-15 14:18] LABS: Vitamin B12 180 pg/mL (239-931)
[2022-02-15 14:21] LABS: Folate 5.78 ng/mL
[2022-02-17 11:32] LABS: Peripheral Smear Review Scanned Result
== END ==
PROVIDERS: Visit Provider Internal Medicine Medical Oncology
DX: D50.9 Iron deficiency anemia, unspecified (principal)
CPT/HCPCS: 36415; 82607; 82728; 82746; 83540; 83550; 85025

== ENCOUNTER 2022-02-23 11:55 | Outpatient (CLI) | payer MEDICARE, SELFPAY ==
[2022-02-23 12:12] VITALS: BP 136/44; PULSE 53; RESP 22; O2SAT 94
== END 2022-02-23 12:12 | disposition home or self-care (01) ==
LOC: INF 11:59
PROVIDERS: PCP Internal Medicine; Visit Provider Internal Medicine Medical Oncology
DX: D64.9 Anemia, unspecified (principal); E53.8 Deficiency of other specified B group vitamins
CPT/HCPCS: 96372

== ENCOUNTER 2022-02-27 12:53 | Outpatient (CLI) | payer MEDICARE, SELFPAY ==
[2022-02-27 13:05] VITALS: BP 122/42; PULSE 48; RESP 22; O2SAT 95
== END 2022-02-27 13:05 | disposition home or self-care (01) ==
LOC: INF 12:54
PROVIDERS: PCP Internal Medicine; Visit Provider Internal Medicine Medical Oncology
DX: D64.9 Anemia, unspecified (principal)
CPT/HCPCS: 96372

== ENCOUNTER 2022-02-28 12:49 | Outpatient (CLI) | payer MEDICARE, SELFPAY ==
[2022-02-28 12:56] VITALS: BP 118/48; PULSE 48; RESP 18; TEMP 36.4; O2SAT 93
== END 2022-02-28 13:05 | disposition home or self-care (01) ==
LOC: INF 12:50
PROVIDERS: PCP Internal Medicine; Visit Provider Internal Medicine Medical Oncology
DX: D64.9 Anemia, unspecified (principal)
CPT/HCPCS: 96372

== ENCOUNTER 2022-03-01 12:56 | Outpatient (CLI) | payer MEDICARE, SELFPAY ==
[2022-03-01 13:10] VITALS: BP 118/48; PULSE 51; RESP 18; TEMP 36.4; O2SAT 96
== END 2022-03-01 13:21 | disposition home or self-care (01) ==
LOC: INF 12:58
PROVIDERS: PCP Internal Medicine; Visit Provider Internal Medicine Medical Oncology
DX: D64.9 Anemia, unspecified (principal)
CPT/HCPCS: 96372

== ENCOUNTER 2022-03-02 12:51 | Outpatient (CLI) | payer MEDICARE, SELFPAY ==
[2022-03-02 13:00] VITALS: BP 123/41; PULSE 45; RESP 18; O2SAT 95
== END 2022-03-02 13:00 | disposition home or self-care (01) ==
LOC: INF 12:52
PROVIDERS: PCP Internal Medicine; Visit Provider Internal Medicine Medical Oncology
DX: D64.9 Anemia, unspecified (principal)
CPT/HCPCS: 96372

== ENCOUNTER 2022-03-09 12:49 | Outpatient (CLI) | payer MEDICARE, SELFPAY ==
[2022-03-09 13:07] VITALS: BP 122/39; PULSE 54; RESP 18; O2SAT 97
== END 2022-03-09 13:05 | disposition home or self-care (01) ==
LOC: INF 12:49
PROVIDERS: Visit Provider Internal Medicine Medical Oncology
DX: D64.9 Anemia, unspecified (principal)
CPT/HCPCS: 96372

== ENCOUNTER 2022-03-16 12:25 | Outpatient (CLI) | payer MEDICARE, SELFPAY | END 2022-03-16 12:45 | disposition home or self-care (01) | LOC: INF 12:25 | PROVIDERS: PCP Internal Medicine; Visit Provider Internal Medicine Medical Oncology | DX: D64.9 Anemia, unspecified (principal) | CPT/HCPCS: 96372 ==

== ENCOUNTER 2022-03-23 11:04 | Outpatient (CLI) | payer MEDICARE, SELFPAY ==
[2022-03-23 11:10] VITALS: BP 128/61; PULSE 61; RESP 18; TEMP 36.4; O2SAT 92
== END 2022-03-23 11:20 | disposition home or self-care (01) ==
LOC: INF 11:05
PROVIDERS: Visit Provider Internal Medicine Medical Oncology
DX: D50.9 Iron deficiency anemia, unspecified (principal)
CPT/HCPCS: 96372

== ENCOUNTER 2022-03-30 11:58 | Outpatient (CLI) | payer MEDICARE, SELFPAY ==
[2022-03-30 12:10] VITALS: BP 134/56; PULSE 48; RESP 20; O2SAT 92
== END 2022-03-30 12:15 | disposition home or self-care (01) ==
LOC: INF 11:58
PROVIDERS: Visit Provider Internal Medicine Medical Oncology
DX: D50.8 Other iron deficiency anemias (principal)
CPT/HCPCS: 96372

== ENCOUNTER 2022-04-30 12:01 | Outpatient (CLI) | payer MEDICARE, SELFPAY ==
[2022-04-30 12:06] VITALS: BP 129/46; PULSE 71; RESP 18; O2SAT 97
== END 2022-04-30 12:15 | disposition home or self-care (01) ==
PROVIDERS: PCP Internal Medicine; Visit Provider Internal Medicine Medical Oncology
DX: D64.9 Anemia, unspecified (principal)
CPT/HCPCS: 96372

== ENCOUNTER → 2022-05-22 11:14 | Outpatient (CLI) | payer MEDICARE, SELFPAY ==
[2022-05-22 14:14] LABS: Alanine Aminotransferase 21 U/L (12-78); Albumin Level 3.6 g/dl (3.5-5.0); Albumin/Globulin Ratio 1.8 (1.1-1.8); Alkaline Phosphatase 97 U/L (38-126); Anion Gap 12.5 mEq/L (5-15); Aspartate Amino Transferase 22 U/L (17-59); Bilirubin,Total 0.8 mg/dl (0.2-1.3); Blood Urea Nitrogen 24 mg/dl (9-20); Calcium 8.9 mg/dl (8.4-10.2); Carbon Dioxide 25 mmol/L (22.0-30.0); Chloride 110 mmol/L (98-107); Chol/HDL Ratio 1.7 (1-3.5); Cholesterol 107 mg/dl (140-200); Estimated Glomerular Filt Rate 48 ml/min (>60); GFR (African American) 58 ML/MIN (>60); Glucose 89 mg/dl (74-100); HDL Cholesterol 62 mg/dl (40-60); Potassium 4.5 mmoL/L (3.5-5.1); Sodium 143 mmol/L (136-145); Total Protein,Serum 5.6 g/dl (6.3-8.2); Triglycerides 72 mg/dl (30-150); Uric Acid 2.8 mg/dl (3.5-8.5); VLDL Cholesterol 14 mg/dL (0-40)
[2022-05-22 14:15] LABS: Basophils % 0.2 % (0.1-2.0); Eosinophils # 0.1 K/mm3 (0.0-0.4); Eosinophils % 1.3 % (0.1-12.0); Hematocrit 37.5 % (42.0-52.0); Hemoglobin 11.5 g/dL (14.1-18.0); Lymphocytes # 0.7 K/mm3 (0.7-4.5); Lymphocytes % 15.8 % (10-50); Mean Corpuscular HGB Conc 30.5 g/dL (31.8-35.4); Mean Corpuscular Hemoglobin 32.6 pg (27.0-31.2); Mean Corpuscular Volume 106.9 fl (80-94); Mean Platelet Volume 12.1 fl (7.4-10.4); Monocytes # 0.3 K/mm3 (0.1-1.0); Monocytes % 6.2 % (1.7-9.3); Neutrophils # 3.3 K/mm3 (1.8-7.8); Neutrophils % 76.5 % (37.0-80.0); Platelet Count 71 K/mm3 (142-424); Red Blood Count 3.51 M/mm3 (4.60-6.20); Red Cell Distribution Width 15.5 % (11.5-17.5); White Blood Count 4.3 K/mm3 (4.8-10.8)
[2022-05-24 15:19] LABS: Direct LDL Cholesterol 33 mg/dL (100-129)
== END ==
PROVIDERS: PCP Internal Medicine; Visit Provider Internal Medicine
DX: I25.10 Atherosclerotic heart disease of native coronary artery without angina pectoris (principal); I10 Essential (primary) hypertension; E78.5 Hyperlipidemia, unspecified; D69.6 Thrombocytopenia, unspecified; M10.9 Gout, unspecified
CPT/HCPCS: 80053; 80061; 84550; 85025

== ENCOUNTER 2022-05-24 11:09 | Outpatient (CLI) | payer MEDICARE, SELFPAY ==
[2022-05-24 11:20] VITALS: BP 148/48; PULSE 49; RESP 18; O2SAT 98
== END 2022-05-24 11:35 | disposition home or self-care (01) ==
LOC: INF 11:10
PROVIDERS: PCP Internal Medicine; Visit Provider Internal Medicine Medical Oncology
DX: D64.9 Anemia, unspecified (principal)
CPT/HCPCS: 96372

== ENCOUNTER → 2022-06-05 13:31 | Outpatient (POV) | payer MEDICARE, SELFPAY | PROVIDERS: Visit Provider Dermatology | DX: Z00.00 Encounter for general adult medical examination without abnormal findings (principal) ==

== ENCOUNTER 2022-06-12 10:24 | Emergency (ER) | payer MEDICARE, SELFPAY ==
[2022-06-12] VITALS (10 sets, daily range): BP systolic 105–142; BP diastolic 56–93; PULSE 52–77; RESP 18–22; TEMP 36.6; O2SAT 91–96; BMI 23.3
--- NOTE | 2022-06-12 10:56 | CT_ITS ---
FINAL REPORT CLINICAL HISTORY: Altered mental status FINDINGS: Axial images of the head were obtained without contrast. Coronal reformatted images were also obtained. This study was performed with techniques to keep radiation doses as low as reasonably achievable (ALARA). Individualized dose reduction techniques using automated exposure control or adjustment of mA and/or kV according to the patient's size were employed. There is generalized age-appropriate atrophy. Periventricular low-attenuation areas are seen consistent with mild chronic ischemic changes. There is mild ventriculomegaly consistent with the degree of atrophy. There is no evidence of intracranial hemorrhage or mass. There is no evidence of acute infarct. There is no evidence of shift of the midline structures. No skull abnormality is seen on the bone window images. IMPRESSION: Atrophy and mild periventricular chronic ischemic changes. No acute intracranial abnormality identified. Reviewed, Interpreted and Dictated by Soren Cruz III, MD Transcribed by Teetee Martin Authenticated and [facility]
--- NOTE | 2022-06-12 10:56 | CT_ITS ---
FINAL REPORT CLINICAL HISTORY: distention COMPARISON: DA abdomen dated 12/11/2021 FINDINGS: CT OF THE ABDOMEN AND PELVIS WITH CONTRAST Axial CT images of the abdomen and pelvis were obtained after the administration of oral and iv contrast. Coronal reformatted images were also obtained and reviewed.This study was performed with techniques to keep radiation doses as low as reasonably achievable (ALARA). Individualized dose reduction techniques using automated exposure control or adjustment of mA and/or kV according to the patient's size were employed. Abdomen: There are moderate pleural effusions. There is bibasilar are atelectasis. The heart is enlarged. The liver has an unremarkable appearance, without evidence of mass or biliary ductal dilatation. The patient is status post cholecystectomy. The spleen is unremarkable. There is a 19 mm left adrenal nodule consistent with a myelolipoma. The pancreas has an unremarkable appearance. There are bilateral renal cysts. There are no stones or hydronephrosis. There is a stable abdominal aortic aneurysm measuring 3.6 cm and previously measured 3.5 cm. There is chronic focal dissection of the mid abdominal aorta which is stable. A right common iliac artery aneurysm measures 19 mm. A left common iliac artery aneurysm measures 17 mm. This is similar to the prior exam. There are multiple fluid-filled bowel loops in a nonspecific pattern. Pelvis: There is diverticulosis with no evidence of diverticulitis. There is wall thickening of the cecum of uncertain significance and could represent localized colitis. The appendix normal. The urinary bladder is unremarkable. There is no evidence of mass or adenopathy. IMPRESSION: 1. Multiple fluid-filled bowel loops in a nonspecific pattern could represent enteritis. 2. Wall thickening of the cecum of uncertain significance could be inflammatory. 3. Stable 3.6 cm abdominal aortic aneurysm. Reviewed, Interpreted and Dictated by Soren Cruz III, MD Transcribed by Teetee Martin Authenticated and [facility][1]
--- NOTE | 2022-06-12 11:02 | HMH.EDGENADL ---
Discharge Plan Disposition Patient Disposition: Home, Self-Care Condition: Good Prescriptions Prescriptions: New amoxicillin-pot clavulanate [Augmentin] 500-125 mg tablet 1 tab PO Q12H Qty: 20 0RF No Action acetaminophen-codeine 300-30 mg tablet 1 tab PO NEEDED PRN (Reason: pain) hydrochlorothiazide 25 mg tablet 25 mg PO DAILY losartan 100 mg tablet 100 mg PO DAILY Label Comments: TAKE 1 TABLET BY MOUTH ONCE DAILY FOR HEART AND FOR BLOOD PRESSURE amlodipine 10 mg tablet 10 mg PO DAILY Label Comments: TAKE 1 TABLET BY MOUTH ONCE DAILY FOR 90 DAYS isosorbide mononitrate 30 mg tablet extended release 24 hr 30 mg PO DAILY Label Comments: TAKE 1 TABLET BY MOUTH ONCE DAILY IN THE MORNING potassium chloride 20 mEq tablet,ER particles/crystals 40 meq PO DAILY Qty: 180 furosemide 40 mg tablet 20 mg PO DAILY Qty: 45 metoprolol succinate 100 mg tablet extended release 24 hr 100 mg PO DAILY Qty: 90 lovastatin 40 mg tablet 40 mg PO HS Qty: 90 ferrous sulfate 325 mg (65 mg iron) tablet 325 mg PO TID PRN (Reason: SUPPLEMENT) Qty: 270 Label Comments: TAKE 1 TABLET BY MOUTH THREE TIMES DAILY allopurinol 300 mg tablet 300 mg PO DAILY Qty: 90 colchicine 0.6 mg tablet 0.6 mg PO DAILY Qty: 90 aspirin 81 MG tablet,delayed release (DR/EC) 81 mg PO DAILY albuterol sulfate 200 PUFFS HFA aerosol inhaler 2 puffs IH QID amoxicillin 500 mg capsule 500 mg PO BID prednisone 20 mg tablet 20 mg PO BID Referrals Follow up/Referrals: German Chacon MD [Primary Care Provider] - See instructions Activity Restrictions/Add. Instructions Additional Instructions/Restrictions: Discontinue Amoxil. Encourage fluids. If worsening abdominal pain fever or other concerns. ED light is good for hydration. Avoid dairy and caffeinated beverages. Clinical Impressions Clinical Impression: Colitis Instructions Patient Instructions: DI for Acute Abdominal Pain Discharge ED Provider: Vega Lamar General Adult HPI General Chief complaint: Abdominal Pain Stated complaint: confused, abdominal swelling Time Seen by Provider: 06/12/22 10:50 Mode of Arrival: Wheelchair Source of Information: Patient Limitations: No Limitations Description of Symptoms (Recalled from ER Triage Doc. by RN): Patient reports he noticed abdominal swelling when he woke up this morning. History of Present Illness HPI narrative: Since complaining of abdominal distention that he noted last night. He describes the distention is moderate and without exacerbating or alleviating factors. On my direct questioning he denies abdominal pain per se. He has had some diarrhea that he states at times has been watery in consistency. He states over the last month he has had intermittent less severe bouts of abdominal distention. Prior history abdominal aortic aneurysm with repair. Related Data Home Medications Medication Instructions Recorded Confirmed allopurinol 300 mg tablet 300 mg PO DAILY gout #90 tabs 08/17/19 06/12/22 colchicine 0.6 mg tablet 0.6 mg PO DAILY gout #90 tabs 08/17/19 06/12/22 ferrous sulfate 325 mg (65 mg 325 mg PO TID PRN SUPPLEMENT #270 08/17/19 06/12/22 iron) tablet tabs furosemide 40 mg tablet 20 mg PO DAILY Fluid #45 tabs 08/17/19 06/12/22 lovastatin 40 mg tablet 40 mg PO HS Cholesterol #90 tabs 08/17/19 06/12/22 metoprolol succinate 100 mg 100 mg PO DAILY Heart disease #90 08/17/19 06/12/22 tablet,extended release 24 hr tabs potassium chloride 20 mEq 40 meq PO DAILY Supplement #180 08/17/19 06/12/22 tablet,extended release(part/cryst) tabs albuterol sulfate 90 mcg/actuation 2 puffs inhalation QID Breathing 12/11/21 06/12/22 aerosol inhaler problems aspirin 81 mg tablet,delayed 81 mg PO DAILY heart health 12/11/21 06/12/22 release acetaminophen 300 mg-codeine 30 mg 1 tab PO NEEDED PRN pain 02/15/22 06/12/22 tablet
[2022-06-12 11:06] LABS: Basophils % 0.3 % (0.1-2.0); Eosinophils % 0.7 % (0.1-12.0); Hematocrit 39.8 % (42.0-52.0); Hemoglobin 12.3 g/dL (14.1-18.0); Lymphocytes # 0.5 K/mm3 (0.7-4.5); Lymphocytes % 11.1 % (10-50); Mean Corpuscular HGB Conc 30.9 g/dL (31.8-35.4); Mean Corpuscular Hemoglobin 33.5 pg (27.0-31.2); Mean Corpuscular Volume 108.5 fl (80-94); Mean Platelet Volume 11.2 fl (7.4-10.4); Monocytes # 0.4 K/mm3 (0.1-1.0); Monocytes % 8.1 % (1.7-9.3); Neutrophils # 3.7 K/mm3 (1.8-7.8); Neutrophils % 79.8 % (37.0-80.0); Platelet Count 97 K/mm3 (142-424); Red Blood Count 3.66 M/mm3 (4.60-6.20); Red Cell Distribution Width 15.2 % (11.5-17.5); White Blood Count 4.6 K/mm3 (4.8-10.8)
[2022-06-12 11:07] LABS: Chloride 105 mmol/L (98-107); Sodium 144 mmol/L (136-145)
[2022-06-12 11:09] LABS: Alanine Aminotransferase 36 U/L (12-78); Alkaline Phosphatase 101 U/L (38-126); Aspartate Amino Transferase 39 U/L (17-59); Bilirubin,Total 0.7 mg/dl (0.2-1.3); Blood Urea Nitrogen 45 mg/dl (9-20); Creatinine Clearance Estimated 44 mL/min (50-200); Estimated Glomerular Filt Rate 52 ml/min (>60); GFR (African American) 63 ML/MIN (>60)
[2022-06-12 11:10] LABS: Albumin Level 3.6 g/dl (3.5-5.0); Albumin/Globulin Ratio 1.6 (1.1-1.8); Calcium 7.9 mg/dl (8.4-10.2); Carbon Dioxide 30 mmol/L (22.0-30.0); Globulin 2.3 g/dL (1.3-3.2); Glucose 92 mg/dl (74-100); Lipase 55 U/L (23-300); Total Protein,Serum 5.9 g/dl (6.3-8.2)
--- NOTE | 2022-06-12 11:24 | PC.NURSE ---
pt to br ua and stool obtained
--- NOTE | 2022-06-12 11:30 | PC.NURSE ---
pt returned to room from bathroom
[2022-06-12 11:43] LABS: Microscopic, Urine URINE MICROSCOPIC (MICROSCOPIC)
[2022-06-12 11:46] LABS: Appearance,Urine CLEAR (Clear); Bilirubin,Urine Negative (Negative); Blood, Urine Negative (Negative); Color,Urine YELLOW (Yellow); Glucose,Urine (UA) Negative (Negative); Ketones,Urine Negative (Negative); Leukocyte Esterase,Urine Negative (Negative); Nitrate,Urine Negative (Negative); Protein,Urine Negative (Negative); Urobilinogen,Urine 0.2 EU/dl (0.2)
--- NOTE | 2022-06-12 12:00 | PC.NURSE ---
pt given warm blanket for comfort, family at bs
[2022-06-12 12:27] LABS: Bacteria,Urine Trace /lpf; Squamous Epithelial Cell,Urine Occasional #/hpf (0-5)
--- NOTE | 2022-06-12 12:45 | PC.NURSE ---
family stepped out of the room, pt lying in bed
--- NOTE | 2022-06-12 13:30 | PC.NURSE ---
pt sleeping, family at bs, states no needs at this time.
[2022-06-12 14:14] LABS: Adenovirus F 40/41, stool Not Detected (NotDetected); Astrovirus Not Detected (NotDetected); Campylobacter Not Detected (NotDetected); Clostridium Difficile A/B, PCR Not Detected (NotDetected); Cryptosporidium Not Detected (NotDetected); Cyclospora Cayetanesis Not Detected (NotDetected); Entamoeba histolytica Not Detected (NotDetected); Enteroaggregative E coli Not Detected (NotDetected); Enteropathogenic E coli Not Detected (NotDetected); Enterotoxigenic E coli Not Detected (NotDetected); Giardia lamblia Not Detected (NotDetected); Norovirus Not Detected (NotDetected); Plesimonas Shigalloides, PCR Not Detected (NotDetected); Rotavirus A Not Detected (NotDetected); Salmonella, PCR Not Detected (NotDetected); Sapovirus Not Detected (NotDetected); Shiga-like toxin E coli Not Detected (NotDetected); Shigella Enterovasive E coli Not Detected (NotDetected); Vibrio Cholerae Not Detected (NotDetected); Vibrio, PCR Not Detected (NotDetected); Yersinia Entercolitica, PCR Not Detected (NotDetected)
--- NOTE | 2022-06-12 15:05 | PC.NURSE ---
Assisted pt with standing and using urinal. Sitter at bedside.
== END 2022-06-12 17:01 | disposition home or self-care (01) ==
PROVIDERS: Emergency Provider Emergency Medicine; PCP Internal Medicine
DX: K52.9 Noninfective gastroenteritis and colitis, unspecified (principal); R41.0 Disorientation, unspecified
CPT/HCPCS: 70450; 74177; 80053; 81001; 83690; 85025; 87506; 96374; 99285; Q9967

== ENCOUNTER 2022-06-22 12:43 | Outpatient (CLI) | payer MEDICARE, SELFPAY ==
[2022-06-22 13:00] VITALS: BP 142/75; PULSE 74; RESP 18; O2SAT 98
[2022-06-22 13:10] VITALS: BP 148/71; PULSE 71; RESP 18; O2SAT 99
== END 2022-06-22 13:10 | disposition home or self-care (01) ==
LOC: INF 12:45
PROVIDERS: Visit Provider Internal Medicine Medical Oncology
DX: D61.818 Other pancytopenia (principal)
CPT/HCPCS: 96372

== ENCOUNTER 2022-07-07 06:59 | Inpatient (IN) | payer MEDICARE, SELFPAY ==
[2022-07-07] VITALS (13 sets, daily range): BP systolic 117–186; BP diastolic 47–107; PULSE 53–84; RESP 20–24; TEMP 36.4–37; O2SAT 85–100; BMI 23.7; BMI 21.8
--- NOTE | 2022-07-07 07:01 | ECG_ITS ---
APPROVED REPORT Exam: Resting ECG HR:61 bpm ECG Measurements Heart Rate 61 AXES DC 152 P 86 QRSd 138 QRS 122 QT 417 T -15 QTc 420 Conclusion SINUS RHYTHM WITH FREQUENT VENTRICULAR PREMATURE COMPLEXES POSSIBLE LEFT ATRIAL ENLARGEMENT [-0.1mV P-WAVE IN V1/V2] INTRAVENTRICULAR CONDUCTION DELAY [130+ ms QRS DURATION] LATERAL MYOCARDIAL INFARCTION , OF INDETERMINATE AGE [40+ ms Q WAVE AND/OR ST/T ABNORMALITY IN I/aVL/V5/V6] ABNORMAL ECG UNCONFIRMED REPORT Electronically signed by : Alex Mckeon MD 07/07/2022 17:38:08
--- NOTE | 2022-07-07 07:07 | HMH.EDGENADL ---
Discharge Plan Disposition Chief Complaint: Shortness of Breath/Dyspnea Prescriptions Prescriptions: No Action losartan 100 mg tablet 100 mg PO DAILY Label Comments: TAKE 1 TABLET BY MOUTH ONCE DAILY FOR HEART AND FOR BLOOD PRESSURE amlodipine 10 mg tablet 5 mg PO DAILY Label Comments: TAKE 1 TABLET BY MOUTH ONCE DAILY FOR 90 DAYS isosorbide mononitrate 30 mg tablet extended release 24 hr 30 mg PO DAILY Label Comments: TAKE 1 TABLET BY MOUTH ONCE DAILY IN THE MORNING potassium chloride 20 mEq tablet,ER particles/crystals 40 meq PO DAILY Qty: 180 furosemide 40 mg tablet 20 mg PO DAILY Qty: 45 metoprolol succinate 100 mg tablet extended release 24 hr 100 mg PO DAILY Qty: 90 lovastatin 40 mg tablet 40 mg PO HS Qty: 90 ferrous sulfate 325 mg (65 mg iron) tablet 325 mg PO TID Qty: 270 Label Comments: TAKE 1 TABLET BY MOUTH THREE TIMES DAILY allopurinol 300 mg tablet 300 mg PO DAILY Qty: 90 aspirin 81 MG tablet,delayed release (DR/EC) 81 mg PO DAILY Discharge ED Provider: Radha Johnson General Adult HPI General Chief complaint: Shortness of Breath/Dyspnea Stated complaint: Shortness of breathe Time Seen by Provider: 07/07/22 07:07 History of Present Illness HPI narrative: Patient is an 87-year-old male with a history of COPD on 3 L of oxygen at home, hypertension, hyperlipidemia, CAD, AAA s/p repair presenting for chief complaint from home for worsening dyspnea. He states he woke up at 4:00 in the morning feeling more short of breath. He has prior traumatic injuries to his nose and is usually unable to breathe through his nose, the oxygen 1 placed in his mouth did not help. Patient is alert and oriented, has not had fevers at home but has headache nonproductive cough without blood or sputum. No chest pain, abdominal pain, nausea, vomiting, diaphoresis or changes in GI/. Patient does report lower extremity edema but this is baseline. No falls/trauma. Related Data Home Medications Medication Instructions Recorded Confirmed allopurinol 300 mg tablet 300 mg PO DAILY gout #90 tabs 08/17/19 07/07/22 ferrous sulfate 325 mg (65 mg 325 mg PO TID Supplement #270 tabs 08/17/19 07/07/22 iron) tablet furosemide 40 mg tablet 20 mg PO DAILY Fluid #45 tabs 08/17/19 07/07/22 lovastatin 40 mg tablet 40 mg PO HS Cholesterol #90 tabs 08/17/19 07/07/22 metoprolol succinate 100 mg 100 mg PO DAILY Heart disease #90 08/17/19 07/07/22 tablet,extended release 24 hr tabs potassium chloride 20 mEq 40 meq PO DAILY Supplement #180 08/17/19 07/07/22 tablet,extended release(part/cryst) tabs aspirin 81 mg tablet,delayed 81 mg PO DAILY heart health 12/11/21 07/07/22 release amlodipine 10 mg tablet 5 mg PO DAILY blood pressure 02/15/22 07/07/22 isosorbide mononitrate 30 mg 30 mg PO DAILY blood pressure 02/15/22 07/07/22 tablet,extended release 24 hr losartan 100 mg tablet 100 mg PO DAILY blood pressure 02/15/22 07/07/22 Allergies Allergy/AdvReac Type Severity Reaction Status Date / Time No Known Allergies Allergy Verified 06/12/22 10:46 FOR[facility] Medical History Arthritis Asthma Atherosclerotic heart disease CAD (coronary artery disease) Cancer Chest pain Congestive heart failure COPD (chronic obstructive pulmonary disease) History of anemia HLD (hyperlipidemia) HTN (hypertension) Surgical History Hx of CABG Family History Other Hypertension Stroke Social History Smoking Status: Never smoker alcohol intake: never substance use type: denies use current occupational status: retired Travel in the last 8 weeks: None household members: none housing: apartment current occupational exposures/haza
--- NOTE | 2022-07-07 07:12 | PC.NURSE ---
ED MD AT BEDSIDE FOR EVALUATION
--- NOTE | 2022-07-07 07:18 | XR_ITS ---
PROCEDURE INFORMATION: Exam: XR Chest Exam date and time: 07/07/2022 7:33 AM Age: 87 years old Clinical indication: Dyspnea TECHNIQUE: Imaging protocol: Radiologic exam of the chest. Views: 2 views. COMPARISON: CR XR CHEST PORTABLE 12/11/2021 11:37 AM FINDINGS: Lungs: Opacity in the left base may represent atelectasis or pneumonia.. Hyperexpanded lung weiss consistent with COPD Pleural spaces: There may be mild to moderate left pleural effusion. Heart/Mediastinum: Unremarkable. No cardiomegaly. Bones/joints: Median sternotomy IMPRESSION: 1. Opacity in the left base may represent atelectasis or pneumonia.. 2. There may be mild to moderate left pleural effusion.
[2022-07-07 07:35] LABS: Coronavirus 19, PCR Not Detected (NotDetected); Influenza A, PCR Not Detected (NotDetected); Influenza B, PCR Not Detected (NotDetected)
--- NOTE | 2022-07-07 07:39 | PC.NURSE ---
XR AT BEDSIDE
[2022-07-07 07:42] LABS: Basophils % 0.6 % (0.1-2.0); Chloride 102 mmol/L (98-107); Eosinophils % 0.5 % (0.1-12.0); Hematocrit 39.5 % (42.0-52.0); Hemoglobin 12.9 g/dL (14.1-18.0); Lymphocytes # 0.7 K/mm3 (0.7-4.5); Lymphocytes % 10.1 % (10-50); Mean Corpuscular HGB Conc 32.6 g/dL (31.8-35.4); Mean Corpuscular Hemoglobin 33.4 pg (27.0-31.2); Mean Corpuscular Volume 102.7 fl (80-94); Mean Platelet Volume 11.2 fl (7.4-10.4); Monocytes # 0.3 K/mm3 (0.1-1.0); Monocytes % 4.8 % (1.7-9.3); Neutrophils # 5.7 K/mm3 (1.8-7.8); Platelet Count 101 K/mm3 (142-424); Red Blood Count 3.85 M/mm3 (4.60-6.20); Red Cell Distribution Width 15.1 % (11.5-17.5); Sodium 146 mmol/L (136-145); White Blood Count 6.8 K/mm3 (4.8-10.8)
[2022-07-07 07:45] LABS: Alanine Aminotransferase 27 U/L (12-78); Albumin Level 4.2 g/dl (3.5-5.0); Albumin/Globulin Ratio 1.8 (1.1-1.8); Alkaline Phosphatase 125 U/L (38-126); Aspartate Amino Transferase 35 U/L (17-59); Bilirubin,Total 0.9 mg/dl (0.2-1.3); Blood Urea Nitrogen 36 mg/dl (9-20); Calcium 8.9 mg/dl (8.4-10.2); Carbon Dioxide 33 mmol/L (22.0-30.0); Creatinine Clearance Estimated 41 mL/min (50-200); Estimated Glomerular Filt Rate 48 ml/min (>60); GFR (African American) 58 ML/MIN (>60); Globulin 2.4 g/dL (1.3-3.2); Glucose 91 mg/dl (74-100); Total Protein,Serum 6.6 g/dl (6.3-8.2)
--- NOTE | 2022-07-07 07:47 | PC.NURSE ---
pt back from rad
[2022-07-07 07:50] LABS: D-Dimer 2.73 ug/mL (0.0-0.5)
[2022-07-07 07:57] LABS: Troponin I 0.07 ng/ml (0.00-0.034)
[2022-07-07 08:13] LABS: NT Pro Brain Natriuretic Pep. 42100 pg/mL (0-450)
--- NOTE | 2022-07-07 08:16 | PC.NURSE ---
RESPIRATORY NOTIFIED OF [facility]
--- NOTE | 2022-07-07 08:21 | CT_ITS ---
PROCEDURE INFORMATION: Exam: CTA Chest With Contrast Exam date and time: 07/07/2022 8:57 AM Age: 87 years old Clinical indication: Dyspnea and shortness of breath; Prior surgery; Surgery date: <1 month; Additional info: Syncope, dyspnea TECHNIQUE: Imaging protocol: Computed tomographic angiography of the chest with contrast. 3D rendering (Not supervised by radiologist): MIP and/or 3D reconstructed images were created by the technologist. Radiation optimization: All CT scans at this facility use at least one of these dose optimization techniques: automated exposure control; mA and/or kV adjustment per patient size (includes targeted exams where dose is matched to clinical indication); or iterative reconstruction. Contrast material: ISOVUE 370; Contrast volume: 70 ml; Contrast route: INTRAVENOUS (IV); COMPARISON: CR Chest 07/07/2022 7:33 AM FINDINGS: Pulmonary arteries: No definite pulmonary embolism is seen to the level of the lobar pulmonary arterial branches bilaterally. The heterogeneous or decreased density of some small segmental and subsegmental pulmonary arterial branches may reflect inadequate enhancement, beam hardening, or motion, flow, or partial volume averaging artifact. One or more small segmental or subsegmental pulmonary emboli cannot be excluded. . Aorta: No aneurysm of the aorta. No dissection of the aorta. Lungs: Consolidation in the lower lobes may represent atelectasis or pneumonia.. Moderate panlobular emphysematous changes Pleural spaces: Moderate bilateral pleural effusions. Heart: Coronary artery calcifications may indicate coronary artery disease. Lymph nodes: Unremarkable. No enlarged lymph nodes. Gallbladder and bile ducts: Cholecystectomy Bones/joints: Median sternotomy Soft tissues: Unremarkable. IMPRESSION: 1. No definite pulmonary embolism is seen to the level of the lobar pulmonary arterial branches bilaterally. The heterogeneous or decreased density of some small segmental and subsegmental pulmonary arterial branches may reflect inadequate enhancement, beam hardening, or motion, flow, or partial volume averaging artifact. One or more small segmental or subsegmental pulmonary emboli cannot be excluded. . 2. Moderate bilateral pleural effusions. 3. Consolidation in the lower lobes may represent atelectasis or pneumonia..
[2022-07-07 08:22] LABS: VBG Base Excess 7.3 mmol/L (-2.4-2.3); VBG HCO3 32.3 mmol/L (23-30); VBG Oxygen Saturation 76.8 % (50-70); VBG PCO2 55.3 mmol/L (35-51); VBG PH 7.39 mmol/L (7.31-7.41); VBG PO2 42.8 mmol/L (28-40)
--- NOTE | 2022-07-07 08:36 | PC.NURSE ---
PT HAVING DIFFICULTY WEARING O2 R/T NASAL CONGESTION. PT WILL WEAR O2 VIA ORALLY BUT DRIES MOUTH. PT WEARS O2 INTERMITTENTLY WHEN INSTRUCTED BY ER STAFF
--- NOTE | 2022-07-07 08:52 | PC.NURSE ---
rad here to get pt
--- NOTE | 2022-07-07 08:55 | PC.NURSE ---
PT CT AT THIS TIME
--- NOTE | 2022-07-07 09:00 | PC.NURSE ---
HOSPITALIST NOTIFIED OF ADMISSION REQUEST, DR. AMEZQUITA WILL CALL BACK
--- NOTE | 2022-07-07 09:11 | PC.NURSE ---
was on the phone with the hospitalist
--- NOTE | 2022-07-07 09:16 | PC.NURSE ---
pt back from rad
--- NOTE | 2022-07-07 09:42 | PC.NURSE ---
PT AND FAMILY UPDATED ON POC
--- NOTE | 2022-07-07 09:44 | PC.NURSE ---
DATA REDUCTION TECHNICIAN NOTIFIED OF ADMISSION
--- NOTE | 2022-07-07 10:07 | PC.NURSE ---
PT CONTINUES TO NOT WEAR O2, INSTRUCTED TO WEAR O2. PT V/U AND APPLIES O2 TO MOUTH
--- NOTE | 2022-07-07 10:15 | PC.NURSE ---
helped pt to restroom
--- NOTE | 2022-07-07 10:15 | EXP.HP ---
History of Present Illness *Admission Date: 07/07/22 *Reason for visit:: Shortness of breath *History of present illness: Patient is an 87-year-old male with a history of COPD on 3 L of oxygen at home, hypertension, hyperlipidemia, CAD, ischemic cardiomyopathy, remote history of 5 vessel CABG, and AAA s/p repair. He presented to the ER today with complaint of worsening shortness of breath at home. States its been worsening over the past few days, has noticed increased swelling in his legs just over the past 1 to 2 days. He has not turned up his oxygen. When he woke this morning he felt more short of breath. He came to the ER because of the symptom. Presenting for chief complaint from home for worsening dyspnea.? He states he woke up at 4:00 in the morning feeling more short of breath.? Has had a progressive nonproductive cough. Feeling more fatigued. Denies nausea, vomiting, confusion chest pain. On arrival to the ER, initial work-up including chest CTA, labs. Positive finding of severely elevated BNP. No PEs noted on CTA. Initially given a dose of IV Lasix in the ER due to volume overload. Patient admitted to internal medicine for volume overload, acute on chronic CHF exacerbation, and chronic respiratory failure. After arrival to the floor, patient is very pleasant but appears significantly chronically ill. States he lives by himself in an apartment and cares for himself. Has not had to increase his inhaler usage. Denies any fever or chills. Noted to have significant lower extremity edema. Has urinated well with his initial course of Lasix. Review of his chart shows previous hospitalization earlier this year with similar symptoms. At that time there was an echo obtained in November with the following findings: Echo shows: 1.? Mildly enlarged left atrium, mildly dilated left ventricle, mild concentric left ventricular hypertrophy, estimated ejection fraction approximately 40% with multiple segmental wall motion abnormality described above, grade 1 diastolic dysfunction seen without tissue Doppler evidence of raise left atrial pressure. 2.? Thickened and calcified aortic valve likely moderate aortic stenosis, there is mild aortic insufficiency. 3.? Mild mitral and tricuspid regurgitation, calculated right ventricular systolic pressure is 41 mmHg. 4.? No significant pericardial effusion noted. 5.? Inferior vena cava is poorly visualized. Patient has not followed up with cardiology in the outpatient setting here. 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 PFSH PFS Medical History (Updated 07/07/22 @ 15:50 by Pato Everett MD) Arthritis Asthma Atherosclerotic heart disease CAD (coronary artery disease) Cancer Chest pain Congestive heart failure COPD (chronic obstructive pulmonary disease) Gallbladder disease History of anemia History of diverticulitis HLD (hyperlipidemia) HTN (hypertension) Skin cancer Surgical History (Updated 07/07/22 @ 15:50 by Pato Everett MD) History of laparoscopic cholecystectomy Hx of CABG Family History Hypertension Stroke Social History Smoking Status: Former smoker alcohol intake: never substance use type: denies use current occupational status: retired Travel in the last 8 weeks: None household members: none housing: apartment current occupational exposures/hazards: No caffeine: No Review of Systems Review of Systems Review of systems (narrative): Complete review of systems performed, pertinent positives and negatives as per HPI Constitutional Constitutional: Denies headache(s) ENT Ears, Nose, Mouth, and Throat: Denies headache(s) *Neurologic Neurologic: Denies confusion, Denies localized weakness, Denies headache(s) and Denies paresthesias Psychiatric Psychiatric: Denies confusion Meds
--- NOTE | 2022-07-07 10:26 | PC.NURSE ---
got pt a pop, pt stated he would like to have an egg sandwich called dietary no answer will call back
--- NOTE | 2022-07-07 10:31 | PC.NURSE ---
REPORT GIVEN TO Julius MULLER RN
--- NOTE | 2022-07-07 10:55 | PC.NURSE ---
BREAKFAST TRAY SET-UP FOR PT, DENIES NEEDS AT THIS TIME
[2022-07-07 11:21] LABS: Troponin I 0.06 ng/ml (0.00-0.034)
--- NOTE | 2022-07-07 11:27 | PC.NURSE ---
2nd floor aide to come and get pt, to take him to room 204
--- NOTE | 2022-07-07 11:36 | PC.NURSE ---
PT arrived to the floor at this time
[2022-07-07 14:09] LABS: Troponin I 0.07 ng/ml (0.00-0.034)
--- NOTE | 2022-07-07 17:13 | PC.NURSE ---
Pt is A/Ox4, but very hard of hearing. He tolerated lunch well. He has ambulated to the bathroom a few time, but does get a little short of breath. He is a little wheezy.
[2022-07-07 17:38] LABS: Anion Gap 16.1 mEq/L (5-15); Blood Urea Nitrogen 38 mg/dl (9-20); Calcium 8.6 mg/dl (8.4-10.2); Carbon Dioxide 33 mmol/L (22.0-30.0); Chloride 99 mmol/L (98-107); Creatinine Clearance Estimated 38 mL/min (50-200); Estimated Glomerular Filt Rate 48 ml/min (>60); GFR (African American) 58 ML/MIN (>60); Glucose 99 mg/dl (74-100); Potassium 4.1 mmoL/L (3.5-5.1); Sodium 144 mmol/L (136-145)
[2022-07-08] VITALS (12 sets, daily range): BP systolic 126–144; BP diastolic 58–74; PULSE 50–72; RESP 17–20; TEMP 36.5–37.1; O2SAT 89–92; BMI 21.4
--- NOTE | 2022-07-08 07:07 | PC.NURSE ---
Pt aox4. No c/o voiced to staff. Able to ambulate to BR with standby assist. Continues to tolerate 3 L nc well with sats >90%. Lungs diminished. t/o. Call light within reach.
--- NOTE | 2022-07-08 07:29 | EXP.ACUTE.PN ---
Subjective *Date: 07/08/22 *Time: 15:29 Interval history: Chief complaint today of increased urine output. States his legs are noticeably less swollen. Has a cough that is minimally productive after breathing treatments. Stable oxygen requirement. Denies any shortness of breath, nausea, vomiting, diarrhea. No confusion. Afebrile on exam Medical Exam Vital signs and Labs for Last 24 Hours: Temp Pulse Resp BP Pulse Ox 98.6 F 71 20 142/67 H 90 L 07/08/22 04:00 07/08/22 04:00 07/08/22 04:00 07/08/22 04:00 07/08/22 06:41 Laboratory Results - last 24 hr 07/07/22 06:55: WBC 6.8, RBC 3.85 L, Hgb 12.9 L, Hct 39.5 L, MCV 102.7 H, MCH 33.4 H, MCHC 32.6, RDW 15.1, Plt Count 101 L, MPV 11.2 H, Neut % (Auto) 84.0 H, Lymph % (Auto) 10.1, [place] % (Auto) 4.8, Eos % (Auto) 0.5, Baso % (Auto) 0.6, Neut # (Auto) 5.7, Lymph # (Auto) 0.7, [place] # (Auto) 0.3, Eos # (Auto) 0.0, Baso # (Auto) 0.0 07/07/22 06:55: Sodium 146 H, Potassium 4.0, Chloride 102, Carbon Dioxide 33 H, Anion Gap 15.0, BUN 36 H, Creatinine 1.40 H, Estimated Creat Clear 41, Estimated GFR 48 L, Est GFR ( Amer) 58 L, Glucose 91, Calcium 8.9, Total Bilirubin 0.9, AST 35, ALT 27, Alkaline Phosphatase 125, Troponin I 0.07 H, NT-Pro-B Natriuret Pep 18202 H, Total Protein 6.6, Albumin 4.2, Globulin 2.4, Albumin/Globulin Ratio 1.8 07/07/22 06:55: D-Dimer 2.73 H 07/07/22 07:03: SARS-CoV-2 (PCR) Not detected, Influenza A Untype (PCR) Not detected, Influenza Type B (PCR) Not detected 07/07/22 08:07: VBG pH 7.39, VBG pCO2 55.3 H, VBG pO2 42.8 H, VBG HCO3 32.3 H, VBG Total CO2 34.0 H, VBG O2 Saturation 76.8 H, VBG Base Excess 7.3 H 07/07/22 10:35: Troponin I 0.06 H 07/07/22 13:41: Troponin I 0.07 H 07/07/22 17:15: Sodium 144, Potassium 4.1, Chloride 99, Carbon Dioxide 33 H, Anion Gap 16.1 H, BUN 38 H, Creatinine 1.40 H, Estimated Creat Clear 38, Estimated GFR 48 L, Est GFR ( Amer) 58 L, Glucose 99, Calcium 8.6 I & O for Labs for Last 24 Hours: Intake & Output 07/05/22 07/06/22 07/07/22 07/08/22 23:59 23:59 23:59 23:59 Intake Total 1315 / 1315 Output Total 1435 / 1435 700 / 700 Balance -120 / -120 -700 / -700 Weight 70.959 kg 69.626 kg Constitutional: Present mild distress, average body habitus, chronically ill appearing and cooperative Head: Present atraumatic and normocephalic Comment:: macroglossia (POA), large francois K on right advent Neck: Present normal inspection Respiratory: Present decreased breath sounds, prolonged expiratory phase and wheezes; Absent rhonchi or crackles Cardiac: Present Reg Rate and Rhythm GI: Present soft; Absent distention or tenderness Extremities: Present edema (interval improvement, 2+ today, wrinkling noted) Skin: Present intact and dry; Absent cyanosis or erythema Neuro: Present Cranial Nerve 2-12 Intact, Motor Function Intact, alert, awake and oriented x 3 Assessment and Plan *Assessment and plan (1) Acute on chronic HFrEF (heart failure with reduced ejection fraction): Status: Acute Category: Medical Code(s): I50.23 - Acute on chronic systolic (congestive) heart failure (2) CHF exacerbation: Status: Acute Category: Medical Code(s): I50.9 - Heart failure, unspecified (3) Chronic hypoxemic respiratory failure: Status: Acute Category: Medical Code(s): J96.11 - Chronic respiratory failure with hypoxia (4) HTN (hypertension): Status: Chronic Category: Medical Code(s): I10 - Essential (primary) hypertension (5) COPD (chronic obstructive pulmonary disease): Status: Chronic Category: Medical Code(s): J44.9 - Chronic obstructive pulmonary disease, unspecified (6) CKD (chronic kidney disease), stage III: Status: Chronic Category: Medical Code(s): N18.30 - Chronic kidney disease, stage 3 unspecified Plan Mr. Hunt is an 87-year-old male with significant cardiac history including chronic systolic heart failure, chr
[2022-07-08 07:51] LABS: Basophils % 0.1 % (0.1-2.0); Eosinophils % 0.4 % (0.1-12.0); Hematocrit 36.1 % (42.0-52.0); Lymphocytes # 0.6 K/mm3 (0.7-4.5); Mean Corpuscular HGB Conc 31.6 g/dL (31.8-35.4); Mean Corpuscular Hemoglobin 32.8 pg (27.0-31.2); Mean Corpuscular Volume 103.6 fl (80-94); Mean Platelet Volume 11.9 fl (7.4-10.4); Monocytes # 0.3 K/mm3 (0.1-1.0); Monocytes % 6.8 % (1.7-9.3); Neutrophils % 80.7 % (37.0-80.0); Platelet Count 86 K/mm3 (142-424); Red Blood Count 3.48 M/mm3 (4.60-6.20); Red Cell Distribution Width 15.3 % (11.5-17.5)
[2022-07-08 07:54] LABS: Chloride 98 mmol/L (98-107); Potassium 3.8 mmoL/L (3.5-5.1); Sodium 141 mmol/L (136-145)
[2022-07-08 07:56] LABS: Blood Urea Nitrogen 35 mg/dl (9-20); Creatinine Clearance Estimated 35 mL/min (50-200); Estimated Glomerular Filt Rate 44 ml/min (>60); GFR (African American) 54 ML/MIN (>60)
[2022-07-08 07:57] LABS: Alanine Aminotransferase 20 U/L (12-78); Albumin Level 3.3 g/dl (3.5-5.0); Albumin/Globulin Ratio 1.5 (1.1-1.8); Alkaline Phosphatase 99 U/L (38-126); Anion Gap 10.8 mEq/L (5-15); Aspartate Amino Transferase 24 U/L (17-59); Bilirubin,Total 0.8 mg/dl (0.2-1.3); Calcium 8.5 mg/dl (8.4-10.2); Carbon Dioxide 36 mmol/L (22.0-30.0); Globulin 2.2 g/dL (1.3-3.2); Glucose 71 mg/dl (74-100); Magnesium 1.2 mg/dl (1.6-2.3); Total Protein,Serum 5.5 g/dl (6.3-8.2)
[2022-07-08 08:06] LABS: Hemoglobin 11.5 g/dL (14.1-18.0)
--- NOTE | 2022-07-08 17:00 | PC.NURSE ---
Patient VSS, BLL clear with auscultation, BLE edema has much improvement with diuretics. up to chair for breakfast, lunch and dinner, 1 run of Magnesium, Lasix 40mg x 2 with good results, family has been at bedside multiple times today. Call light within reach, bed at lowest level for safety.
[2022-07-08 17:36] LABS: Chloride 96 mmol/L (98-107); Potassium 4.2 mmoL/L (3.5-5.1); Sodium 141 mmol/L (136-145)
[2022-07-08 17:39] LABS: Anion Gap 13.2 mEq/L (5-15); Blood Urea Nitrogen 42 mg/dl (9-20); Calcium 8.7 mg/dl (8.4-10.2); Carbon Dioxide 36 mmol/L (22.0-30.0); Creatinine Clearance Estimated 35 mL/min (50-200); Estimated Glomerular Filt Rate 44 ml/min (>60); GFR (African American) 54 ML/MIN (>60); Glucose 100 mg/dl (74-100)
[2022-07-09] VITALS: BP 124/52; PULSE 64; PULSE 70; RESP 18; TEMP 36.9; O2SAT 94
[2022-07-09 04:00] VITALS: BP 128/56; PULSE 60; PULSE 63; RESP 18; TEMP 36.6; O2SAT 91
[2022-07-09 04:13] VITALS: BMI 21.6
[2022-07-09 06:55] LABS: Basophils % 0.5 % (0.1-2.0); Eosinophils % 0.6 % (0.1-12.0); Hematocrit 40.6 % (42.0-52.0); Hemoglobin 12.9 g/dL (14.1-18.0); Lymphocytes # 0.8 K/mm3 (0.7-4.5); Lymphocytes % 13.6 % (10-50); Mean Corpuscular HGB Conc 31.8 g/dL (31.8-35.4); Mean Corpuscular Hemoglobin 32.6 pg (27.0-31.2); Mean Corpuscular Volume 102.6 fl (80-94); Mean Platelet Volume 11.9 fl (7.4-10.4); Monocytes # 0.3 K/mm3 (0.1-1.0); Monocytes % 5.4 % (1.7-9.3); Neutrophils # 4.9 K/mm3 (1.8-7.8); Neutrophils % 79.9 % (37.0-80.0); Platelet Count 108 K/mm3 (142-424); Red Blood Count 3.95 M/mm3 (4.60-6.20); Red Cell Distribution Width 15.2 % (11.5-17.5); White Blood Count 6.2 K/mm3 (4.8-10.8)
[2022-07-09 07:03] LABS: Chloride 94 mmol/L (98-107); Sodium 142 mmol/L (136-145)
[2022-07-09 07:04] LABS: Potassium 3.8 mmoL/L (3.5-5.1)
[2022-07-09 07:06] LABS: Alanine Aminotransferase 30 U/L (12-78); Albumin Level 4.1 g/dl (3.5-5.0); Albumin/Globulin Ratio 1.7 (1.1-1.8); Alkaline Phosphatase 111 U/L (38-126); Anion Gap 14.8 mEq/L (5-15); Aspartate Amino Transferase 35 U/L (17-59); Bilirubin,Total 0.7 mg/dl (0.2-1.3); Blood Urea Nitrogen 42 mg/dl (9-20); Calcium 8.9 mg/dl (8.4-10.2); Carbon Dioxide 37 mmol/L (22.0-30.0); Creatinine Clearance Estimated 33 mL/min (50-200); Estimated Glomerular Filt Rate 41 ml/min (>60); GFR (African American) 50 ML/MIN (>60); Globulin 2.4 g/dL (1.3-3.2); Glucose 87 mg/dl (74-100); Total Protein,Serum 6.5 g/dl (6.3-8.2)
[2022-07-09 07:07] LABS: Magnesium 1.6 mg/dl (1.6-2.3)
--- NOTE | 2022-07-09 07:20 | EXP.DC.SUM ---
General Admission date:: 07/07/22 Discharge date: 07/09/22 HPI HPI HPI: Patient is an 87-year-old male with a history of COPD on 3 L of oxygen at home, hypertension, hyperlipidemia, CAD, ischemic cardiomyopathy, remote history of 5 vessel CABG, and AAA s/p repair. He presented to the ER today with complaint of worsening shortness of breath at home. States its been worsening over the past few days, has noticed increased swelling in his legs just over the past 1 to 2 days. He has not turned up his oxygen. When he woke this morning he felt more short of breath. He came to the ER because of the symptom. Presenting for chief complaint from home for worsening dyspnea.? He states he woke up at 4:00 in the morning feeling more short of breath.? Has had a progressive nonproductive cough. Feeling more fatigued. Denies nausea, vomiting, confusion chest pain. On arrival to the ER, initial work-up including chest CTA, labs. Positive finding of severely elevated BNP. No PEs noted on CTA. Initially given a dose of IV Lasix in the ER due to volume overload. Patient admitted to internal medicine for volume overload, acute on chronic CHF exacerbation, and chronic respiratory failure. After arrival to the floor, patient is very pleasant but appears significantly chronically ill. States he lives by himself in an apartment and cares for himself. Has not had to increase his inhaler usage. Denies any fever or chills. Noted to have significant lower extremity edema. Has urinated well with his initial course of Lasix. Review of his chart shows previous hospitalization earlier this year with similar symptoms. At that time there was an echo obtained in November with the following findings: Echo shows: 1.? Mildly enlarged left atrium, mildly dilated left ventricle, mild concentric left ventricular hypertrophy, estimated ejection fraction approximately 40% with multiple segmental wall motion abnormality described above, grade 1 diastolic dysfunction seen without tissue Doppler evidence of raise left atrial pressure. 2.? Thickened and calcified aortic valve likely moderate aortic stenosis, there is mild aortic insufficiency. 3.? Mild mitral and tricuspid regurgitation, calculated right ventricular systolic pressure is 41 mmHg. 4.? No significant pericardial effusion noted. 5.? Inferior vena cava is poorly visualized. Patient has not followed up with cardiology in the outpatient setting here. He states that he usually sees his thread roller in [facility] yearly and it is time to follow-up with them. Hospital Course Hospital Course Hospital Course: Mr. Smyth is an 87-year-old male with significant cardiac history including chronic systolic heart failure, chronic oxygen requirement, COPD, CKD.? Presented to the ER for worsening dyspnea and swelling in his legs.? Admitted for CHF exacerbation.? Initiated on IV diuretics.? Responded well. Stable O2 requirement.? Problems addressed as follows: Acute on chronic combined CHF Aortic stenosis History of 5 vessel CABG CAD -Admitted for CHF exacerbation with volume overload. Started on IV Lasix twice daily with good response. -1 to 2 L daily during admission. Pleased with diuresis and response. Continued home metoprolol. Held his losartan, Imdur, amlodipine given blood pressure and diuresis. Plan to resume losartan at half dose and isosorbide at discharge. Discontinue amlodipine. Also held his colchicine for gout as he had no pain or problems in this can potentially hurt his kidneys. Plan to increase his Lasix to 40 mg once a day on discharge, prescription sent. Needs close follow-up with cardiology and his primary care. We will establish patient with cardiology at [facility], outpatient appointment scheduled. - Continued home statin and aspirin. CKD Hypomagnesemia - Stable, monitor with labs daily. CR remained at baseline of 1.5-1.7. repleted Mag and K during admission. COPD Chronic hypox
--- NOTE | 2022-07-09 07:56 | PC.NURSE ---
No c/o voiced to staff. Pt tolerating 3 L nc well with sats >90%. Lungs clear. Call light within reach.
[2022-07-09 08:00] VITALS: BP 129/68; PULSE 68; RESP 22; TEMP 36.9; O2SAT 91
--- NOTE | 2022-07-09 09:54 | CARE MANAGER ---
Addendum entered by Kaylie Urbano RN 07/09/22 10:32: [facility] has accepted referral and will see patient tomorrow. Original Note: Discussed home health with patient and patient reports no preference for agency. Agreed with [facility] as they have heart failure program. Discussed walker with patient and family and they request patient has one. Sent information to [facility] and [facility]. Patient to be discharged today. DELORES Conti
--- NOTE | 2022-07-10 11:30 | CARE MANAGER ---
Spoke with patient for post-discharge phone interview, patient states that he is doing well and has no issues.
== END 2022-07-09 12:20 | disposition home health service (06) | DRG 291 ==
LOC: ER 07:56 → 2ND 11:29
PROVIDERS: Admitting Provider Internal Medicine Adolescent Medicine; Emergency Provider Emergency Medicine; PCP Internal Medicine; Visit Provider Internal Medicine Adolescent Medicine
DX: I13.0 Hypertensive heart and chronic kidney disease with heart failure and stage 1 through stage 4 chronic kidney disease, or unspecified chronic kidney disease (principal); I50.23 Acute on chronic systolic (congestive) heart failure; J96.11 Chronic respiratory failure with hypoxia; I42.9 Cardiomyopathy, unspecified; J44.9 Chronic obstructive pulmonary disease, unspecified; Z99.81 Dependence on supplemental oxygen; E78.5 Hyperlipidemia, unspecified; I25.10 Atherosclerotic heart disease of native coronary artery without angina pectoris; Z95.1 Presence of aortocoronary bypass graft; M19.90 Unspecified osteoarthritis, unspecified site; I25.5 Ischemic cardiomyopathy; Z85.828 Personal history of other malignant neoplasm of skin; Z87.891 Personal history of nicotine dependence; N18.30 Chronic kidney disease, stage 3 unspecified; I35.0 Nonrheumatic aortic (valve) stenosis; E83.42 Hypomagnesemia
CPT/HCPCS: 36415; 71046; 71275; 80048; 80053; 82803; 83735; 83880; 84484; 85025; 85378; 93005; 94640; 99291; C9803; J3475; Q9967; U0003; U0005

== ENCOUNTER → 2022-07-16 15:31 | Outpatient (CLI) | payer MEDICARE, SELFPAY ==
[2022-07-16 17:32] LABS: Blood Urea Nitrogen 49 mg/dl (9-20); Calcium 8.7 mg/dl (8.4-10.2); Carbon Dioxide 34 mmol/L (22.0-30.0); Chloride 98 mmol/L (98-107); Estimated Glomerular Filt Rate 34 ml/min (>60); GFR (African American) 41 ML/MIN (>60); Glucose 99 mg/dl (74-100); Sodium 141 mmol/L (136-145)
== END ==
PROVIDERS: PCP Internal Medicine; Visit Provider Nurse Practitioner
DX: E78.5 Hyperlipidemia, unspecified (principal); I10 Essential (primary) hypertension; I25.10 Atherosclerotic heart disease of native coronary artery without angina pectoris; I42.9 Cardiomyopathy, unspecified; I50.20 Unspecified systolic (congestive) heart failure; R06.00 Dyspnea, unspecified; Z86.79 Personal history of other diseases of the circulatory system; Z95.1 Presence of aortocoronary bypass graft; Z95.828 Presence of other vascular implants and grafts
CPT/HCPCS: 36415; 80048

== ENCOUNTER 2022-07-20 14:43 | Outpatient (CLI) | payer MEDICARE, SELFPAY ==
[2022-07-20 14:55] VITALS: BP 100/58; PULSE 72; RESP 20; TEMP 36.3; O2SAT 91
[2022-07-20 14:58] VITALS: BP 101/42; PULSE 71; RESP 20; O2SAT 91
== END 2022-07-20 14:58 | disposition home or self-care (01) ==
PROVIDERS: PCP Internal Medicine; Visit Provider Internal Medicine Medical Oncology
DX: D64.9 Anemia, unspecified (principal)
CPT/HCPCS: 96372

== ENCOUNTER → 2022-08-06 14:27 | Outpatient (CLI) | payer MEDICARE, SELFPAY ==
[2022-08-06 15:05] LABS: Basophils % 0.4 % (0.1-2.0); Eosinophils % 1.1 % (0.1-12.0); Hematocrit 34.5 % (42.0-52.0); Hemoglobin 10.8 g/dL (14.1-18.0); Lymphocytes # 1.2 K/mm3 (0.7-4.5); Lymphocytes % 29.8 % (10-50); Mean Corpuscular HGB Conc 31.3 g/dL (31.8-35.4); Mean Corpuscular Hemoglobin 32.1 pg (27.0-31.2); Mean Corpuscular Volume 102.7 fl (80-94); Mean Platelet Volume 10.4 fl (7.4-10.4); Monocytes # 0.3 K/mm3 (0.1-1.0); Monocytes % 6.2 % (1.7-9.3); Neutrophils # 2.6 K/mm3 (1.8-7.8); Neutrophils % 62.6 % (37.0-80.0); Platelet Count 109 K/mm3 (142-424); Red Blood Count 3.36 M/mm3 (4.60-6.20); Red Cell Distribution Width 15.5 % (11.5-17.5); White Blood Count 4.1 K/mm3 (4.8-10.8)
[2022-08-06 15:54] LABS: Chloride 98 mmol/L (98-107); Potassium 3.6 mmoL/L (3.5-5.1); Sodium 142 mmol/L (136-145)
[2022-08-06 15:57] LABS: Anion Gap 13.6 mEq/L (5-15); Blood Urea Nitrogen 44 mg/dl (9-20); Calcium 8.8 mg/dl (8.4-10.2); Carbon Dioxide 34 mmol/L (22.0-30.0); Estimated Glomerular Filt Rate 48 ml/min (>60); GFR (African American) 58 ML/MIN (>60); Glucose 91 mg/dl (74-100)
== END ==
PROVIDERS: PCP Internal Medicine; Visit Provider Nurse Practitioner
DX: E78.5 Hyperlipidemia, unspecified (principal); I10 Essential (primary) hypertension; I25.10 Atherosclerotic heart disease of native coronary artery without angina pectoris; I42.9 Cardiomyopathy, unspecified; I50.20 Unspecified systolic (congestive) heart failure; J44.9 Chronic obstructive pulmonary disease, unspecified; R06.00 Dyspnea, unspecified; Z86.79 Personal history of other diseases of the circulatory system; Z95.1 Presence of aortocoronary bypass graft; Z95.828 Presence of other vascular implants and grafts
CPT/HCPCS: 36415; 80048; 85025

== ENCOUNTER 2022-08-17 08:50 | Day surgery (SDC) | payer MEDICARE, SELFPAY ==
[2022-08-17] VITALS (10 sets, daily range): BP systolic 101–128; BP diastolic 48–62; PULSE 54–74; RESP 16–20; O2SAT 95–100; BMI 20.4
--- NOTE | 2022-08-17 07:20 | IR_ITS ---
APPROVED REPORT Patient Location: Outpatient Head Machinist: CLARIBEL Solomon RT (R) PROCEDURES Catheter placement in the right common iliac artery Right common iliac artery retrograde angiogram Left heart catheterization Left ventriculogram Selective coronary angiogram Left internal mammary angiography Selective engagement of the saphenous vein graft to the first obtuse marginal artery Selective engagement of the saphenous vein graft to the second obtuse marginal artery Selective engagement of the saphenous vein graft to the first diagonal artery Selective engagement of the saphenous vein graft to the posterior descending artery Bilateral selective renal angiography INDICATION New onset cardiomyopathy, Coronary artery disease, History of coronary bypass surgery, Chronic renal failure creatinine 1.6, 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 COMPLICATIONS NONE Estimated Blood Loss: LESS THAN 10 ML TECHNIQUE One percent lidocaine used to anesthetize the right groin. The right femoral artery was accessed via the Seldinger technique and a 5 [place] sheath was placed in the right femoral artery. A JL 4, JR4 catheter were used to perform left heart catheterization, left ventriculogram selective coronary angiography as well as selective engagement of the 4 vein grafts and nonselective left internal mammary angiography. An exchange wire was used to bring the JR4 and JR4 catheters in and out of the arterial system. Bilateral selective renal angiography was performed using the JR 4 catheter due to the elevated creatinine and hypertension diffuse atherosclerotic disease. At the end of the procedure the apparatus was removed the patient was transferred to the postop putting in stable condition for sheath removal ANGIOGRAPHIC RESULTS The left main artery Normal The left anterior descending artery Is patent in the proximal segment and then occluded at mid vessel. The circumflex artery Proximally occluded The right coronary artery Ostially subtotally occluded The GALINDO ventriculogram reveals Severe dilatation with severe global hypokinesis ejection fraction less than 20% The left ventricular end-diastolic pressure 5 mmHg MARCANO patent LAD Saphenous patent to diagonal 1 Saphenous patent to OM 1 Saphenous patent to OM 2 Saphenous patent to PDA Right renal artery singular normal Left renal artery singular normal There is an infrarenal abdominal aortic aneurysm which extends into the right common iliac artery accompanied by moderate diffuse calcified atheromatous plaque IMPRESSION Patent coronary arteries as described above Severe global hypokinesis with severely reduced ejection fraction Normal left ventricular end-diastolic pressure Patent renal arteries Infrarenal abdominal aortic aneurysm with iliac artery aneurysms as described above intermixed with peripheral artery disease which appears to be patent at this time PLAN 1. Medical management for coronary disease 2. Patient is a candidate for AICD placement. This should be discussed with patient and considered within the next week or so 3. Standard therapy for systolic heart failure 4. Medical management for peripheral artery disease Electronically signed by : Derrick Clifton MD 08/17/2022 12:04:03
[2022-08-17 09:33] LABS: Chloride 97 mmol/L (98-107); Sodium 141 mmol/L (136-145)
[2022-08-17 09:34] LABS: Potassium 3.7 mmoL/L (3.5-5.1)
[2022-08-17 09:37] LABS: Anion Gap 12.7 mEq/L (5-15); Blood Urea Nitrogen 57 mg/dl (9-20); Calcium 9.2 mg/dl (8.4-10.2); Carbon Dioxide 35 mmol/L (22.0-30.0); Creatinine Clearance Estimated 31 mL/min (50-200); Estimated Glomerular Filt Rate 41 ml/min (>60); GFR (African American) 50 ML/MIN (>60); Glucose 94 mg/dl (74-100)
[2022-08-17 09:43] LABS: Basophils % 0.5 % (0.1-2.0); Eosinophils # 0.1 K/mm3 (0.0-0.4); Eosinophils % 2.5 % (0.1-12.0); Hemoglobin 13.4 g/dL (14.1-18.0); Lymphocytes # 0.6 K/mm3 (0.7-4.5); Lymphocytes % 24.4 % (10-50); Mean Corpuscular HGB Conc 31.9 g/dL (31.8-35.4); Mean Corpuscular Volume 100.4 fl (80-94); Mean Platelet Volume 11.1 fl (7.4-10.4); Monocytes # 0.2 K/mm3 (0.1-1.0); Monocytes % 7.1 % (1.7-9.3); Neutrophils # 1.7 K/mm3 (1.8-7.8); Neutrophils % 65.5 % (37.0-80.0); Platelet Count 73 K/mm3 (142-424); Red Blood Count 4.18 M/mm3 (4.60-6.20); Red Cell Distribution Width 15.3 % (11.5-17.5); White Blood Count 2.6 K/mm3 (4.8-10.8)
== END 2022-08-17 14:57 | disposition home or self-care (01) ==
PROVIDERS: PCP Internal Medicine; Visit Provider Internal Medicine
DX: R94.39 Abnormal result of other cardiovascular function study (principal); Z95.1 Presence of aortocoronary bypass graft; I42.9 Cardiomyopathy, unspecified; I70.1 Atherosclerosis of renal artery; Z79.899 Other long term (current) drug therapy; I25.10 Atherosclerotic heart disease of native coronary artery without angina pectoris; J96.11 Chronic respiratory failure with hypoxia; Z99.81 Dependence on supplemental oxygen; Z87.891 Personal history of nicotine dependence; R13.10 Dysphagia, unspecified; I50.22 Chronic systolic (congestive) heart failure; I11.0 Hypertensive heart disease with heart failure; I72.3 Aneurysm of iliac artery; Z95.828 Presence of other vascular implants and grafts; I15.0 Renovascular hypertension
CPT/HCPCS: 36252; 36415; 80048; 85025; 93306; 93459; 99152; 99153; C1725; C1769; C1894; G0278; Q9967

== ENCOUNTER 2022-08-20 14:33 | Outpatient (CLI) | payer MEDICARE, SELFPAY ==
[2022-08-20 14:36] VITALS: BMI 22.4
--- NOTE | 2022-08-20 15:00 | XR_ITS ---
FINAL REPORT CLINICAL HISTORY: SOB..poss aspiration COMPARISON: 07/07/2022 FINDINGS: 2 views of the chest were obtained . Patient is status post median sternotomy. The heart is normal in size. There is mild pulmonary vascular congestion. The mediastinum is within normal limits. Persistent left base opacities are seen which may represent atelectasis or pneumonia which are unchanged from prior exam. There is a moderate left pleural effusion. There is no pneumothorax. Osseous structures are unremarkable. IMPRESSION: Stable left base opacities which may represent atelectasis or pneumonia with moderate left pleural effusion. Reviewed, Interpreted and Dictated by Soren Cruz III, MD Transcribed by Jolene Moses Authenticated and . [facility]
[2022-08-20 15:16] LABS: Basophils % 0.7 % (0.1-2.0); Eosinophils # 0.1 K/mm3 (0.0-0.4); Eosinophils % 1.9 % (0.1-12.0); Hematocrit 31.8 % (42.0-52.0); Hemoglobin 10.4 g/dL (14.1-18.0); Lymphocytes % 29.6 % (10-50); Mean Corpuscular HGB Conc 32.8 g/dL (31.8-35.4); Mean Corpuscular Hemoglobin 32.9 pg (27.0-31.2); Mean Corpuscular Volume 100.2 fl (80-94); Mean Platelet Volume 10.4 fl (7.4-10.4); Monocytes # 0.2 K/mm3 (0.1-1.0); Monocytes % 7.5 % (1.7-9.3); Neutrophils # 1.9 K/mm3 (1.8-7.8); Neutrophils % 60.3 % (37.0-80.0); Platelet Count 111 K/mm3 (142-424); Red Blood Count 3.18 M/mm3 (4.60-6.20); Red Cell Distribution Width 15.7 % (11.5-17.5); White Blood Count 3.2 K/mm3 (4.8-10.8)
[2022-08-20 16:19] LABS: Vitamin B12 865 pg/mL (239-931)
== END 2022-08-20 14:55 | disposition home or self-care (01) ==
LOC: INF 14:34
PROVIDERS: PCP Internal Medicine; Visit Provider Internal Medicine Medical Oncology
DX: J34.2 Deviated nasal septum (principal); R13.10 Dysphagia, unspecified; D64.9 Anemia, unspecified
CPT/HCPCS: 36415; 71046; 82607; 85025; 96372

== ENCOUNTER → 2022-09-10 12:58 | Outpatient (CLI) | payer MEDICARE, SELFPAY ==
--- NOTE | 2022-09-10 13:04 | NM_ITS ---
APPROVED REPORT Indication Cardiomyopathy Procedure The above named patient was injected with 24.8 mCi of [id number] tagged red blood cells. Impression 1. Resting MUGA scan was performed in the standard view, calculated ejection fraction is 34% with no regional wall motion abnormality. Conclusion 1. Resting MUGA scan was performed in the standard view, calculated ejection fraction is 34% with no regional wall motion abnormality. Electronically signed by : Masoud Mcconnell MD 09/10/2022 19:27:02 [facility]
== END ==
PROVIDERS: PCP Internal Medicine; Visit Provider Nurse Practitioner
DX: I50.20 Unspecified systolic (congestive) heart failure; Z95.1 Presence of aortocoronary bypass graft; I42.8 Other cardiomyopathies
CPT/HCPCS: 78473; A9512; A9560

== ENCOUNTER 2022-09-17 14:59 | Outpatient (CLI) | payer MEDICARE, SELFPAY ==
[2022-09-17 15:05] VITALS: BP 122/72; PULSE 63; RESP 22; TEMP 36.4; O2SAT 90
== END 2022-09-17 15:10 | disposition home or self-care (01) ==
LOC: INF 14:59
PROVIDERS: PCP Internal Medicine; Visit Provider Internal Medicine Medical Oncology
DX: E53.8 Deficiency of other specified B group vitamins (principal)
CPT/HCPCS: 96372

== ENCOUNTER 2022-10-13 15:41 | Inpatient (IN) | payer MEDICARE, SELFPAY ==
[2022-10-13] VITALS (18 sets, daily range): BP systolic 84–104; BP diastolic 38–68; PULSE 34–87; RESP 12–18; TEMP 36.7; O2SAT 90–98; BMI 22.8
--- NOTE | 2022-10-13 15:41 | ECG_ITS ---
APPROVED REPORT Exam: Resting ECG HR:42 bpm ECG Measurements Heart Rate 42 AXES HI 200 P -57 QRSd 166 QRS 15 QT 568 T 25 QTc 510 Conclusion A fib with very slow response WITH OCCASIONAL VENTRICULAR PREMATURE COMPLEXES LEFT ATRIAL ENLARGEMENT [-0.1mV P-WAVE IN V1/V2] LEFT BUNDLE BRANCH BLOCK [120+ ms QRS DURATION, 80+ ms Q/S IN V1/V2, 85+ ms R IN I/aVL/V5/V6] LATERAL MYOCARDIAL INFARCTION , OF INDETERMINATE AGE [40+ ms Q WAVE AND/OR ST/T ABNORMALITY IN I/aVL/V5/V6] PROLONGED QT INTERVAL CRITICAL TEST RESULT UNCONFIRMED REPORT Electronically signed by : Alex Mckeon MD 10/14/2022 09:45:22
--- NOTE | 2022-10-13 15:46 | XR_ITS ---
PROCEDURE INFORMATION: Exam: XR Chest Exam date and time: 10/13/2022 4:05 PM Age: 87 years old Clinical indication: Shortness of breath; Additional info: Bradycardia, hypotension TECHNIQUE: Imaging protocol: Radiologic exam of the chest. Views: 1 view. COMPARISON: CR XR CHEST 2V 08/20/2022 3:01 PM FINDINGS: Lungs: Volume loss at the left lung base. Faint infiltrates in the mid to lower aspect of both lungs. Pleural spaces: Left-sided pleural effusion. Heart/Mediastinum: Unremarkable. No cardiomegaly. Bones/joints: Median sternotomy. IMPRESSION: 1. Left-sided pleural effusion. 2. Left lung base atelectasis. 3. Bilateral infiltrates may represent pneumonia.
--- NOTE | 2022-10-13 15:53 | PC.NURSE ---
dr washington speaking with dr abdi
--- NOTE | 2022-10-13 15:54 | PC.NURSE ---
XR AT BEDSIDE
--- NOTE | 2022-10-13 16:01 | PC.NURSE ---
DR. MCDONALD SPEAKING WITH DR. VILCHIS
[2022-10-13 16:02] LABS: Basophils % 0.4 % (0.1-2.0); Eosinophils % 1.2 % (0.1-12.0); Hematocrit 30.3 % (42.0-52.0); Hemoglobin 9.7 g/dL (14.1-18.0); Lymphocytes # 0.7 K/mm3 (0.7-4.5); Lymphocytes % 19.4 % (10-50); Mean Corpuscular HGB Conc 32.1 g/dL (31.8-35.4); Mean Corpuscular Hemoglobin 32.6 pg (27.0-31.2); Mean Corpuscular Volume 101.6 fl (80-94); Mean Platelet Volume 13.8 fl (7.4-10.4); Monocytes # 0.2 K/mm3 (0.1-1.0); Monocytes % 6.4 % (1.7-9.3); Neutrophils # 2.5 K/mm3 (1.8-7.8); Neutrophils % 72.7 % (37.0-80.0); Platelet Count 54 K/mm3 (142-424); Red Blood Count 2.98 M/mm3 (4.60-6.20); Red Cell Distribution Width 16.7 % (11.5-17.5); White Blood Count 3.4 K/mm3 (4.8-10.8)
[2022-10-13 16:06] LABS: Chloride 105 mmol/L (98-107); Potassium 4.2 mmoL/L (3.5-5.1); Sodium 141 mmol/L (136-145)
[2022-10-13 16:08] LABS: Alanine Aminotransferase 40 U/L (12-78); Alkaline Phosphatase 105 U/L (38-126); Anion Gap 12.2 mEq/L (5-15); Aspartate Amino Transferase 46 U/L (17-59); Bilirubin,Total 0.4 mg/dl (0.2-1.3); Carbon Dioxide 28 mmol/L (22.0-30.0); Creatinine Clearance Estimated 21 mL/min (50-200); Estimated Glomerular Filt Rate 26 ml/min (>60); GFR (African American) 31 ML/MIN (>60); Magnesium 1.8 mg/dl (1.6-2.3)
[2022-10-13 16:09] LABS: Albumin Level 3.2 g/dl (3.5-5.0); Albumin/Globulin Ratio 1.3 (1.1-1.8); Calcium 8.4 mg/dl (8.4-10.2); Globulin 2.4 g/dL (1.3-3.2); Glucose 101 mg/dl (74-100); Total Protein,Serum 5.6 g/dl (6.3-8.2)
--- NOTE | 2022-10-13 16:15 | HMH.EDGENADL ---
Discharge Plan Disposition Patient Disposition: Admitted As Inpatient Condition: Serious Clinical Impressions Clinical Impression: Symptomatic bradycardia, Acute kidney injury superimposed on chronic kidney disease, Thrombocytopenia, Anemia, CHF (congestive heart failure) Discharge ED Provider: Dewey Bahena General Adult HPI General Chief complaint: Arrhythmia/Palpitations Stated complaint: bradycardia Time Seen by Provider: 10/13/22 16:00 Mode of Arrival: EMS Limitations: No Limitations Description of Symptoms (Recalled from ER Triage Doc. by RN): PT BROUGHT IN VIA EMS FOR HR IN THE 30'S. PT REPORTS BEING WEAK, CHECKED HR AT HOME. History of Present Illness HPI narrative: Patient is a 87-year-old male with past medical history of coronary artery disease status post 5 vessel CABG, asthma, COPD on home oxygen 3 L, CHF, hypertension, hyperlipidemia, skin cancer who presents emergency department for evaluation of dizziness and slow heart rate. Onset was acute, over the last 24 hours patient has had dizziness upon rising from a seated position. Patient normally gets around his home with a walker without difficulty and can no longer walk more than 5 paces at a time. Patient's home medication list includes furosemide, metoprolol, amlodipine, isosorbide, losartan. Due to low heart rate noticed by family member and dizziness he presents here for continued evaluation. In route IV access was obtained, fingerstick blood glucose was acceptable. Heart rate between 30 and 40, patient with appropriate mentation not requiring atropine. Upon arrival patient denies chest pain, other acute complaints at this time other than inability to walk far. Patient is very hard of hearing. Related Data Home Medications Medication Instructions Recorded Confirmed allopurinol 300 mg tablet 300 mg PO DAILY gout #90 tabs 08/17/19 10/13/22 ferrous sulfate 325 mg (65 mg 325 mg PO TID Supplement #270 tabs 08/17/19 10/13/22 iron) tablet lovastatin 40 mg tablet 40 mg PO HS Cholesterol #90 tabs 08/17/19 10/13/22 metoprolol succinate 100 mg 100 mg PO DAILY Heart disease #90 08/17/19 10/13/22 tablet,extended release 24 hr tabs aspirin 81 mg tablet,delayed 81 mg PO DAILY heart health 12/11/21 10/13/22 release isosorbide mononitrate 30 mg 30 mg PO DAILY blood pressure 02/15/22 10/13/22 tablet,extended release 24 hr amlodipine 10 mg tablet 10 mg PO DAILY htn 08/13/22 10/13/22 colchicine 0.6 mg tablet 0.6 mg PO DAILY gout 08/13/22 10/13/22 fluticasone propionate 50 1 g intranasal DAILY Breathing 08/13/22 10/13/22 mcg/actuation nasal problems spray,suspension potassium chloride 10 mEq 10 meq PO DAILY Supplement 08/13/22 10/13/22 capsule,extended release umeclidinium 62.5 mcg-vilanterol 1 inh inhalation DAILY Breathing 08/17/22 10/13/22 25 mcg/actuation powdr for problems inhalation (Anoro Ellipta) furosemide 40 mg tablet 60 mg PO DAILY Edema 10/10/22 10/13/22 losartan 50 mg tablet 50 mg PO DAILY Heart rhythm 10/13/22 10/13/22 mupirocin 2 % topical ointment 1 applic topical BID Skin condition 10/13/22 10/13/22 Previous Rx's Medication Instructions Recorded albuterol sulfate 90 mcg/actuation 2 inh inhalation Q6H PRN shortness 07/24/22 aerosol inhaler of breath or wheezing 90 days #8.5 grams ipratropium 0.5 mg-albuterol 3 mg 3 ml inhalation QID PRN shortness 07/24/22 (2.5 mg base)/3 mL nebulization of breath or wheezing #90 mL soln Allergies Allergy/AdvReac Type Severity Reaction Status Date / Time No Known Allergies Allergy Verified 08/30/22 10:34 [facility] Disclaimer: The information contained in this section may have been updated after the patient was seen, as this information can be updated by other users. Medical History Arthritis Asthma Atherosclerotic heart disease CAD (coronary artery disease) Cancer Chest pain Chronic respiratory failure with hypoxia Congest
[2022-10-13 16:18] LABS: Blood Urea Nitrogen 90 mg/dl (9-20); NT Pro Brain Natriuretic Pep. 24400 pg/mL (0-450)
[2022-10-13 16:22] LABS: Troponin I 0.02 ng/ml (0.00-0.034)
[2022-10-13 16:25] LABS: Coronavirus 19, PCR Not Detected (NotDetected); Influenza A, PCR Not Detected (NotDetected); Influenza B, PCR Not Detected (NotDetected)
[2022-10-13 16:30] LABS: Free T4 (Free Thyroxine) 1.36 ng/dl (0.78-2.19)
[2022-10-13 16:31] LABS: POC Glucose,Bedside 95 (70-110)
[2022-10-13 16:40] LABS: Thyroid Stimulating Hormone 4.86 uIU/mL (0.465-4.68)
--- NOTE | 2022-10-13 16:43 | PC.NURSE ---
DOPAMINE DRIP INCREASED AT THIS TIME TO 7.5MCG. PT WITHOUT NEEDS, FAMILY AT BEDSIDE
--- NOTE | 2022-10-13 16:59 | ECG_ITS ---
APPROVED REPORT Exam: Resting ECG HR:57 bpm ECG Measurements Heart Rate 57 AXES QRSd 236 QRS 91 QT 538 T -84 QTc 532 Conclusion AFib with slow condution RIGHT AXIS DEVIATION [QRS AXIS > 90] LEFT BUNDLE BRANCH BLOCK [120+ ms QRS DURATION, 80+ ms Q/S IN V1/V2, 85+ ms R IN I/aVL/V5/V6] ABNORMAL ECG UNCONFIRMED REPORT Electronically signed by : Alex Mckeon MD 10/14/2022 09:44:19
--- NOTE | 2022-10-13 17:00 | ECG_ITS ---
APPROVED REPORT Exam: Resting ECG HR:49 bpm ECG Measurements Heart Rate 49 AXES QRSd 156 QRS 55 QT 506 T 60 QTc 475 Conclusion ATRIAL FIBRILLATION WITH SLOW VENTRICULAR RESPONSE WITH ABERRANT CONDUCTION OR VENTRICULAR PREMATURE COMPLEXES LEFT BUNDLE BRANCH BLOCK [120+ ms QRS DURATION, 80+ ms Q/S IN V1/V2, 85+ ms R IN I/aVL/V5/V6] LATERAL MYOCARDIAL INFARCTION , OF INDETERMINATE AGE [40+ ms Q WAVE AND/OR ST/T ABNORMALITY IN I/aVL/V5/V6] ABNORMAL ECG UNCONFIRMED REPORT Electronically signed by : Alex Mckeon MD 10/14/2022 09:43:23
--- NOTE | 2022-10-13 17:09 | PC.NURSE ---
DR Bahena speaking to Dr Clifton
--- NOTE | 2022-10-13 17:23 | EXP.HP ---
History of Present Illness *Admission Date: 10/13/22 *Reason for visit:: bradycardia *History of present illness: 87-year-old male with significant past medical history of CABG x5, COPD, chronic hypoxemic respiratory failure on 3 L at home, NYHA class IV heart failure, CKD, status post AAA repair, who presents with symptomatic bradycardia. His [id number] at bedside helps supplement history. Patient states that he monitors his heart rate regularly. He has been feeling more fatigued with increased swelling in his legs over the past 1 to 2 weeks. Heart rate has been decreasing on his daily checks, running in the 40s for the past week, when it began running in the 30s today, he was concerned and decided he needed to come to the ER for evaluation. Complains of an creased cough, wanting to sleep more. Denies chest pain, increased shortness of breath, nausea, vomiting, abdominal pain, confusion. No report of altered mental status. Denies any overt bleeding. Has been afebrile. No increasing cough. Otherwise stable on his chronic 3 L nasal cannula oxygen. Cardiology was consulted due to symptomatic bradycardia. Patient started on dopamine drip for rate control. Other remarkable findings include creatinine of 2.4 (baseline 1.6) BNP elevated to 24,000. TSH essentially normal at 4.8. Admitted to medicine for monitoring overnight. Cardiology planning on potential pacemaker in the morning. 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 MUGA scan obtained 09/10/22 Impression 1.? Resting MUGA scan was performed in the standard view, calculated ejection fraction is 63% with no regional wall motion abnormality. [facility] Disclaimer: The information contained in this section may have been updated after the patient was seen, as this information can be updated by other users. Medical History Arthritis Asthma Atherosclerotic heart disease CAD (coronary artery disease) Cancer Chest pain Chronic respiratory failure with hypoxia Congestive heart failure COPD (chronic obstructive pulmonary disease) COPD mixed type Deviated septum Dysphagia Gallbladder disease History of anemia History of diverticulitis History of smoking 30 or more pack years HLD (hyperlipidemia) HTN (hypertension) Impacted cerumen Pulmonary emphysema Sinus congestion Skin cancer Systolic heart failure Surgical History History of laparoscopic cholecystectomy Hx of CABG Family History Nasal obstruction Hypertension Stroke Social History Smoking Status: Former smoker alcohol intake: never substance use type: denies use current occupational status: retired Travel in the last 8 weeks: None household members: none housing: apartment current occupational exposures/hazards: No caffeine: No Review of Systems Review of Systems Review of systems (narrative): 14 point review of systems performed, pertinent positives and negatives as per HPI Meds Home Medications and Allergies Home Medications Medication Instructions Recorded Confirmed Type allopurinol 300 mg tablet 300 mg PO DAILY gout #90 tabs 08/17/19 10/13/22 History ferrous sulfate 325 mg (65 mg 325 mg PO TID Supplement #270 tabs 08/17/19 10/13/22 History iron) tablet lovastatin 40 mg tablet 40 mg PO HS Cholesterol #90 ta
--- NOTE | 2022-10-13 17:48 | PC.NURSE ---
DUMP TRUCK OPERATOR NOTIFIED OF BED ASSIGNMENT
[2022-10-13 17:59] LABS: ABG Base Excess -0.6 mmol/L (-2.4-2.3); ABG HCO3 24.3 mmhg (22.0-26.0); ABG Oxygen Saturation 96 % (90-100); ABG PCO2 40.7 mmhg (35.0-45.0); ABG PH 7.39 mmol/L (7.35-7.45); ABG PO2 78.3 mmhg (80-100); ABG TCO2 25.6 mmhg (23-27); Allen's Test y; Oxygen 3.5 %; Source rr
--- NOTE | 2022-10-13 18:41 | PC.NURSE ---
1829 - Dr Clifton requested that I notify team that he will be taking the patient down for pacemaker placement at 0930 in the morning. Drone Software Development Engineer notified, cath team and anesthesia paged 1832 - Swetha Wiseman and Mia all returned call and were notified. 1834 - Erna returned call and was notified and requested that she be called again when patient was ready to go down to the OR. 1839 - Notified by Will, RT that Veronique will be in at [address] Clifton's request
--- NOTE | 2022-10-13 18:41 | PC.NURSE ---
183 - Dr Cliftno requested that I notify team that he will be taking the patient down for a pacemaker at 0930 in the morning. Cotton Classer notified, cath team and anesthesia paged and I notified RT that Dr Clifton would like someone present during procedure. 1832 - Swetha Wiseman and Mia all returned call and were notified. 1834 - Erna returned call and was notified and requested that she be called again when patient was ready to go down to the OR. 1839 - Notified by Will, RT that Veronique will be in at [address] Clifton's request
--- NOTE | 2022-10-13 19:23 | PC.NURSE ---
Pt provided with cardiac diet tralou
--- NOTE | 2022-10-13 19:27 | PC.NURSE ---
Called 2nd floor to check status on the room availability, room is ready and gave report to Raya ESTRELLA
--- NOTE | 2022-10-13 20:04 | PC.NURSE ---
PT ARRIVED TO FLOOR AT THIS TIME
--- NOTE | 2022-10-13 20:28 | PC.NURSE ---
pt admitted to 219 from ER, labs being drawn at this time, HR 70-80's with dopamine drip at 7.5mcg/kg/min, admission bp 94/51 (66), family at bedside, will complete admission paperwork after labs completed
[2022-10-13 21:13] LABS: Troponin I 0.03 ng/ml (0.00-0.034)
[2022-10-14] VITALS (44 sets, daily range): BP systolic 76–136; BP diastolic 40–62; PULSE 42–131; RESP 14–29; TEMP 34.8–36.6; O2SAT 90–99
[2022-10-14 00:16] LABS: Troponin I 0.04 ng/ml (0.00-0.034)
--- NOTE | 2022-10-14 02:13 | PC.NURSE ---
HR decreasing into 40's, increased dopamine drip to 10mcg/kg/min
--- NOTE | 2022-10-14 02:22 | PC.NURSE ---
pt's oxygen saturations decreasing to 88%, increased nasal cannula to 5L and saturations 90-92%
[2022-10-14 06:49] LABS: Basophils % 0.2 % (0.1-2.0); Eosinophils % 0.3 % (0.1-12.0); Lymphocytes # 0.6 K/mm3 (0.7-4.5); Lymphocytes % 12.5 % (10-50); Mean Corpuscular HGB Conc 32.1 g/dL (31.8-35.4); Mean Corpuscular Hemoglobin 32.7 pg (27.0-31.2); Mean Corpuscular Volume 101.9 fl (80-94); Mean Platelet Volume 12.8 fl (7.4-10.4); Monocytes # 0.5 K/mm3 (0.1-1.0); Monocytes % 9.2 % (1.7-9.3); Neutrophils # 3.8 K/mm3 (1.8-7.8); Neutrophils % 77.8 % (37.0-80.0); Platelet Count 73 K/mm3 (142-424); Red Blood Count 3.34 M/mm3 (4.60-6.20); Red Cell Distribution Width 16.6 % (11.5-17.5); White Blood Count 4.8 K/mm3 (4.8-10.8)
[2022-10-14 06:50] LABS: Hemoglobin 10.9 g/dL (14.1-18.0)
[2022-10-14 07:36] LABS: Alanine Aminotransferase 54 U/L (12-78); Albumin Level 3.6 g/dl (3.5-5.0); Albumin/Globulin Ratio 1.5 (1.1-1.8); Alkaline Phosphatase 126 U/L (38-126); Anion Gap 13.2 mEq/L (5-15); Aspartate Amino Transferase 58 U/L (17-59); Bilirubin,Total 0.5 mg/dl (0.2-1.3); Calcium 9.1 mg/dl (8.4-10.2); Carbon Dioxide 31 mmol/L (22.0-30.0); Chloride 101 mmol/L (98-107); Chol/HDL Ratio 1.7 (1-3.5); Cholesterol 91 mg/dl (140-200); Creatinine Clearance Estimated 18 mL/min (50-200); Estimated Glomerular Filt Rate 21 ml/min (>60); GFR (African American) 25 ML/MIN (>60); Globulin 2.4 g/dL (1.3-3.2); Glucose 125 mg/dl (74-100); HDL Cholesterol 55 mg/dl (40-60); Magnesium 1.9 mg/dl (1.6-2.3); Potassium 4.2 mmoL/L (3.5-5.1); Sodium 141 mmol/L (136-145); Triglycerides 57 mg/dl (30-150); VLDL Cholesterol 11 mg/dL (0-40)
[2022-10-14 07:49] LABS: Direct LDL Cholesterol < 30.00 mg/dL (100-129)
[2022-10-14 07:50] LABS: Blood Urea Nitrogen 92 mg/dl (9-20)
--- NOTE | 2022-10-14 08:09 | IR_ITS ---
APPROVED REPORT Patient Location: Inpatient Auricular Therapist: CLARIBEL Solomon RT (R) PROCEDURES 1. Pocket formation for Cardiac Resynchronization Therapy- Pacemaker Placement. 2. Placement of an atrial sensing and pacing coil into the right atrial appendage. 3. Placement of left ventricular sensing pacing lead via the coronary sinus. 4. Placement of a ventricular sensing and pacing coil in the right ventricular apex. 5. Cardiac Resynchronization Therapy- Pacemaker Placement. INDICATION Ejection fraction <50%, Anticipated RV pacing >40%, High degree AV block, Wide QRS >120ms, [place] Heart Assoication Class 3 Congestive Heart Failure Informed consent was obtained prior to the procedure. COMPLICATIONS None Estimated Blood Loss: Less than 10 ML TECHNIQUE 1% Lidocaine with epinephrine used to anesthetized the left anterior aspect of the chest. Scalpel was used to make the initial cutaneous incision while electrocautery was used to dissect down tinto the fascia. The fascia was lifted off the pectoralis muscle and digitally manipulated creating a pocket for the pacemaker. The patient was then placed in Trendelenburg position and the subclavian vein was accessed three times via the Selinger technique, there are three wires in the vein. A 9.5 Monegasque sheath and dilator was then placed over one of the wires while keeping the other two wires in place within the subclavian vein. The dilator was removed from the sheath. Using fluoroscopic guidance, contrast was used to visualize the coronary sinus, the left ventricular lead was placed into the coronary sinus. Electronic interrogation proved acceptable thresholds and voltage within the lead. Using 3-0 silk, the left ventricular lead was then secured into place and sheath peeled away. A 6 Monegasque sheath was placed under fluoroscopic guidance into the subclavian vein over one of the wires while keeping the other wire in place within the subclavian vein. The dilator was removed from the sheath. Using fluoroscopic guidance, the ventricular lead was placed into the right ventricular apex, screwed and secured into place. Electronic interrogation proved acceptable thresholds and voltage within the lead. Using 3-0 silk, the ventricular lead was then secured into place. Lead was secured to the facia using the 3-0 silk. Following this, the sheath was pealed away. An additional 6 Monegasque fresh sheath and dilator was placed over the existing wire. Using fluoroscopic guidance, the atrial lead was the placed into the right atrial appendage and screwed and secured in place. Electrical interrogation demonstrated acceptable thresholds and voltage number. The atrial lead was then secured into place using 3-0 silk. 1 gram of Ancef was used to flush the pocket. Following the pacemaker generator being secured to the fascia and in place, Monocryl was used to close the subcutaneous layers while charanjit were used to close the cutaneous layer. A pressure dressing was placed and the patient was transferred to the postop holding area in stable condition for postoperative care. INTERROGATION Generator Model number: Visionist X4 MAIL HANDLER SORTER-P U228 Generator Serial number: [id number] Atrial lead model number: Ingevity 52 cm 7841 Atrial lead serial number: [id number] P-wave: 2.5 mV Impedence: 570 Ohms Threshold: 1.6V @ 0.4ms Right Ventricular lead model number: Ingevity 59 cm 7842 Right Ventricular lead serial number: [id number] R-wave: 13 mV Impedence: 668 Ohms Threshold: 1.0V @ 0.4ms Left Ventricular lead model number: Acuity X4 straight 4671 Left Ventricular lead serial number: [id number] R-wave: Impedence: 1176 Ohms Threshold: 1.7V @ 0.4 ms Pacing Parameters: Mo
--- NOTE | 2022-10-14 09:09 | EXP.ANES.CKL ---
[facility] Disclaimer: The information contained in this section may have been updated after the patient was seen, as this information can be updated by other users. Medical History Arthritis Asthma Atherosclerotic heart disease CAD (coronary artery disease) Cancer Chest pain Chronic respiratory failure with hypoxia Congestive heart failure COPD (chronic obstructive pulmonary disease) COPD mixed type Deviated septum Dysphagia Gallbladder disease History of anemia History of diverticulitis History of smoking 30 or more pack years HLD (hyperlipidemia) HTN (hypertension) Impacted cerumen Pulmonary emphysema Sinus congestion Skin cancer Systolic heart failure Surgical History History of laparoscopic cholecystectomy Hx of CABG Family History Other Hypertension Nasal obstruction Stroke Social History Smoking Status: Former smoker alcohol intake: never substance use type: denies use current occupational status: retired Travel in the last 8 weeks: None household members: none housing: apartment current occupational exposures/hazards: No caffeine: No H Anesthesia Checklist Patient Identification Patient Identification: Arm Band and Verbal (Name & ) Structural Data Admitted From: Inpatient Planned Operative Procedure/s: Pacemaker Consent for Planned Operative Procedure(s) Verified: Yes NPO Status Verified Time NPO: 00:00 Chart Verification Results Verified: CBC and BMP Additional verifications Anesthesia Reactions: No Hx Blood Transfusions: Yes Blood Transfusion Reaction: No Airway Assessment C-Spine Mobility Assessed: Yes TMJ Mobility Assessed: Yes Dentition: Edentulous Neurological Assessment Level of Consciousness: Awake Hx Seizures: No Numbness or tingling in extremities: No Anesthesia Plan Anesthesia Risk discussed: Yes Anesthesia Plan: Verified ASA Class: IV (E) Anesthesia Type: MAC
--- NOTE | 2022-10-14 11:48 | XR_ITS ---
PROCEDURE INFORMATION: Exam: XR Chest Exam date and time: 10/14/2022 11:56 AM Age: 87 years old Clinical indication: Device placement; Cardiac pacemaker lead placement or adjustment; Additional info: Confirm pacemaker/aid placement TECHNIQUE: Imaging protocol: Radiologic exam of the chest. Views: 1 view. COMPARISON: CR XR CHEST PORTABLE 10/13/2022 4:05 PM FINDINGS: Tubes, catheters and devices: Triple lead pacemaker is in expected position. Lungs: Interstitial pulmonary edema. Patchy left basilar airspace opacities. Pleural spaces: Small bilateral pleural effusions, left greater than right. No pneumothorax. Heart/Mediastinum: Changes of prior CABG. Cardiomegaly. Bones/joints: Unremarkable. IMPRESSION: 1. Triple lead pacemaker is in expected position. 2. Interstitial pulmonary edema with small bilateral pleural effusions, left greater than right. 3. Patchy left basilar airspace opacities may reflect atelectasis versus pneumonia.
--- NOTE | 2022-10-14 15:31 | EXP.ACUTE.PN ---
Subjective *Date: 10/14/22 *Time: 18:52 Interval history: Mr. Smyth was taken this morning for pacemaker placement (BiV). Prior to procedure, hemodynamically stable on dopamine with systolic blood pressures 80-100. Denied nausea, chest pain, confusion, headache. Family at bedside. After procedure, has been more fatigued but will wake and respond to both verbal and physical stimuli. Answering questions appropriately. Blood pressure softer necessitating more support. Slow to clear anesthesia. Stable on 5 to 6 L nasal cannula throughout the day. No complaints of pain after procedure. Does feel the urge to have a bowel movement and Modi has been placed. Medical Exam Vital signs and Labs for Last 24 Hours: Vital Signs Temp Pulse Pulse Resp BP BP Pulse Ox 10/14/22 08:00 58 L 10/14/22 13:18 70 10/14/22 13:18 74 10/14/22 13:18 93 L 10/14/22 12:45 75 18 91/44 L 91 L 10/14/22 13:00 75 18 91/44 L 94 L 10/14/22 12:30 75 20 89/46 L 95 10/14/22 08:00 61 91 L 10/14/22 12:12 84 20 88/43 L 90 L 10/14/22 12:10 70 20 88/43 L 96 10/14/22 08:00 97.9 F 10/14/22 06:00 58 L 18 136/50 L 90 L 10/14/22 04:00 66 15 118/53 L 91 L 10/14/22 04:00 64 10/14/22 02:00 72 15 98/53 L 90 L 10/14/22 01:07 84 10/13/22 22:00 75 10/14/22 01:00 63 14 100/55 L 94 L 10/14/22 00:30 68 14 116/54 L 95 10/13/22 23:30 73 16 103/52 L 95 10/13/22 23:16 60 12 87/47 L 90 L 10/13/22 23:00 67 12 84/45 L 94 L 10/13/22 22:00 77 14 100/59 L 96 10/14/22 00:00 71 15 87/49 L 93 L 10/13/22 21:00 79 13 97/51 L 93 L 10/13/22 20:20 83 16 94/51 L 90 L 10/14/22 00:53 94 L 10/13/22 20:20 95 10/13/22 19:31 76 12 96/43 L 95 10/13/22 19:15 87 14 96 10/13/22 19:00 83 15 95/41 L 96 10/13/22 18:45 81 12 97 10/13/22 18:30 82 15 90/46 L 97 10/13/22 19:36 98.0 F 65 16 96/43 L 10/13/22 18:01 78 18 90/42 L 96 10/13/22 17:30 83 18 103/50 L 96 10/13/22 17:00 40 L 97/38 L 93 L 10/13/22 16:31 40 L 12 104/68 L 95 10/13/22 16:01 40 L 94/41 L 10/13/22 15:41 98.0 F 34 L 17 95/44 L 98 Intake and Output 10/13/22 10/14/22 10/14/22 23:59 07:59 15:59 Output Total 0 / 0 Balance 0 / 0 Output: Output, Urine Amount 0 / 0 Other: Number of Voids 1 Number of Unmeasured Voids 1 Number of Bowel Movements 1 Laboratory Results - last 24 hr 10/13/22 15:48: WBC 3.4 L, RBC 2.98 L, Hgb 9.7 L, Hct 30.3 L, MCV 101.6 H, MCH 32.6 H, MCHC 32.1, RDW 16.7, Plt Count 54 L, MPV 13.8 H, Neut % (Auto) 72.7, Lymph % (Auto) 19.4, [place] % (Auto) 6.4, Eos % (Auto) 1.2, Baso % (Auto) 0.4, Neut # (Auto) 2.5, Lymph # (Auto) 0.7, [place] # (Auto) 0.2, Eos # (Auto) 0.0, Baso # (Auto) 0.0 10/13/22 15:48: Sodium 141, Potassium 4.2, Chloride 105, Carbon Dioxide 28, Anion Gap 12.2, BUN 90 H, Creatinine 2.40 H, Estimated Creat Clear 21, Estimated GFR 26 L, Est GFR ( Amer) 31 L, Glucose 101 H, Calcium 8.4, Total Bilirubin 0.4, AST 46, ALT 40, Alkaline Phosphatase 105, Troponin I 0.02, Total Protein 5.6 L, Albumin 3.2 L, Globulin 2.4, Albumin/Globulin Ratio 1.3, TSH 4.86 H 10/13/22 15:48: Magnesium 1.8, NT-Pro-B Natriuret Pep 43147 H 10/13/22 15:48: Free T4 1.36 10/13/22 15:57: SARS-CoV-2 (PCR) Not detected, Influenza A Untype (PCR) Not detected, Influenza Type B (PCR) Not detected 10/13/22 16:25: POC Glucose 95 10/13/22 17:35: Specimen Source rr, O2 % 3.5, ABG pH 7.39, ABG pCO2 40.7, ABG pO2 78.3 L, ABG HCO3 24.3, ABG Total CO2 25.6, ABG O2 Saturation 96, ABG Base Excess -0.6, Jesse Test y 10/13/22 20:37: Troponin I 0.03 10/13/22 23:23: Troponin I 0.04 H 10/14/22 05:55: WBC 4.8 D, RBC 3.34 L, Hgb 10.9 L D, Hct 34.0 L, MCV 101.9 H, MCH 32.7 H, MCHC 32.1, RDW 16.6, Plt Count 73 L D, MPV 12.8 H, Neut % (Auto) 7
[2022-10-14 16:25] LABS: Microscopic, Urine URINE MICROSCOPIC (MICROSCOPIC)
[2022-10-14 16:28] LABS: Appearance,Urine CLEAR (Clear); Bilirubin,Urine Negative (Negative); Blood, Urine Negative (Negative); Color,Urine YELLOW (Yellow); Glucose,Urine (UA) Negative (Negative); Ketones,Urine Negative (Negative); Leukocyte Esterase,Urine Negative (Negative); Nitrate,Urine Negative (Negative); Protein,Urine TRACE (Negative); Specific Gravity, Urine 1.025 (1.005-1.030); Urobilinogen,Urine 0.2 EU/dl (0.2)
[2022-10-14 18:04] LABS: RBC,Urine Occasional #/hpf (0-3); Squamous Epithelial Cell,Urine Occasional #/hpf (0-5); WBC,Urine Occasional #/hpf (0-3)
--- NOTE | 2022-10-14 18:46 | PC.NURSE ---
at approximately 1545 pt became hypotensive, Dr. Everett at bedside, gave new orders, ken gtt currently running at 80 mcg/min, pt has also been hypothermic, last temperature was 97.5, urinary catheter placed this shift, pt remains on 5L NC at this time, has complained of SOA, PRN breathing treatments given
[2022-10-14 19:05] LABS: Chloride 106 mmol/L (98-107); Potassium 4.4 mmoL/L (3.5-5.1); Sodium 140 mmol/L (136-145)
[2022-10-14 19:08] LABS: Anion Gap 15.4 mEq/L (5-15); Calcium 8.1 mg/dl (8.4-10.2); Carbon Dioxide 23 mmol/L (22.0-30.0); Creatinine Clearance Estimated 18 mL/min (50-200); Estimated Glomerular Filt Rate 21 ml/min (>60); GFR (African American) 25 ML/MIN (>60); Glucose 99 mg/dl (74-100)
[2022-10-14 19:11] LABS: Blood Urea Nitrogen 87 mg/dl (9-20)
--- NOTE | 2022-10-14 19:20 | PC.NURSE ---
bp 74/43, increased ken drip to 100mcg/min (from 80mcg/min)
--- NOTE | 2022-10-14 19:52 | PC.NURSE ---
bp 79/46, increased ken drip to 110mcg/min
--- NOTE | 2022-10-14 20:15 | PC.NURSE ---
MD Clifton ordered stat abg, cbc and cmp and ordered RN to give 1L NS bolus, labs being drawn and order being sent to night watch
--- NOTE | 2022-10-14 20:18 | P.PN_ITS ---
Subjective *Date: 10/16/22 *Time: 00:11 Interval history: pacer in place , patient more awake , BP remaining in 90's some ectopy . IV pressurer increased ot 110 to keep BP in the 90's cardiology update d and iv fluid bolus, and labs ordered Exam Data for Last 24 hours Vital signs and Labs for Last 24 Hours: Temp Pulse Resp BP Pulse Ox 97.5 F L 79 27 H 79/46 L 94 L 10/14/22 18:40 10/14/22 19:53 10/14/22 19:53 10/14/22 19:53 10/14/22 19:53 Laboratory Results - last 24 hr 10/13/22 20:37: Troponin I 0.03 10/13/22 23:23: Troponin I 0.04 H 10/14/22 05:55: WBC 4.8 D, RBC 3.34 L, Hgb 10.9 L D, Hct 34.0 L, MCV 101.9 H, MCH 32.7 H, MCHC 32.1, RDW 16.6, Plt Count 73 L D, MPV 12.8 H, Neut % (Auto) 77.8, Lymph % (Auto) 12.5, [place] % (Auto) 9.2, Eos % (Auto) 0.3, Baso % (Auto) 0.2, Neut # (Auto) 3.8, Lymph # (Auto) 0.6 L, [place] # (Auto) 0.5, Eos # (Auto) 0.0, Baso # (Auto) 0.0 10/14/22 05:55: Sodium 141, Potassium 4.2, Chloride 101, Carbon Dioxide 31 H, Anion Gap 13.2, BUN 92 H, Creatinine 2.90 H D, Estimated Creat Clear 18, Estimated GFR 21 L, Est GFR ( Amer) 25 L, Glucose 125 H D, Calcium 9.1, Magnesium 1.9, Total Bilirubin 0.5, AST 58 D, ALT 54 D, Alkaline Phosphatase 126, Total Protein 6.0 L, Albumin 3.6 D, Globulin 2.4, Albumin/Globulin Ratio 1.5, Triglycerides 57, Cholesterol 91 L, LDL Cholesterol Direct < 30.00 L, VLDL Cholesterol 11, HDL Cholesterol 55, Cholesterol/HDL Ratio 1.7 10/14/22 16:15: Urine Color Yellow, Urine Appearance Clear, Urine pH 5.0, Ur Specific [place] 1.025, Urine Protein Trace, Urine Glucose (UA) Negative, Urine Ketones Negative, Urine Blood Negative, Urine Nitrate Negative, Urine Bilirubin Negative, Urine Urobilinogen 0.2, Ur Leukocyte Esterase Negative, Urine RBC Occasional, Urine WBC Occasional, Ur Squamous Epith Cells Occasional, Urine Bacteria None 10/14/22 18:45: Sodium 140, Potassium 4.4, Chloride 106, Carbon Dioxide 23, Anion Gap 15.4 H, BUN 87 H, Creatinine 2.90 H, Estimated Creat Clear 18, Estimated GFR 21 L, Est GFR ( Amer) 25 L, Glucose 99 D, Calcium 8.1 L I & O for Last 24 hours: Intake & Output 10/11/22 10/12/22 10/13/22 10/14/22 23:59 23:59 23:59 23:59 Intake Total 1204 / 1204 Output Total 350 / 350 Balance 854 / 854 Weight 68.353 kg Constitutional Constitutional: no acute distress Comments: was sleeping easy to awaken. he denies any acute problems *Routine Respiratory Exam Respiratory: Present normal respiratory effort *Routine Cardiovascular Exam Comments: pacer capturing well *Routine Neurological Exam Neurological: Present alert and CN II-XII intact Assessment and Plan *Assessment and plan (1) Hypotension after procedure: Status: Acute Category: Medical Code(s): I95.81 - Postprocedural hypotension (2) Artificial cardiac pacemaker: Status: Acute Category: Medical Code(s): Z95.0 - Presence of cardiac pacemaker Plan 1. continuing to monitor patient post procedure, BP low , will try one liter fluids. , recheck labs, start Vancomycin Dr Clifton, Dr Everett both contacted by phone / messenger
--- NOTE | 2022-10-14 20:18 | PC.NURSE ---
bp 104/52, decreased ken drip to 100mcg/min
--- NOTE | 2022-10-14 20:33 | PC.NURSE ---
bp 78/40 (52), increased ken drip to 110mcg/min
[2022-10-14 20:37] LABS: Basophils % 0.2 % (0.1-2.0); Eosinophils % 0.3 % (0.1-12.0); Hematocrit 31.6 % (42.0-52.0); Hemoglobin 10.1 g/dL (14.1-18.0); Lymphocytes # 0.4 K/mm3 (0.7-4.5); Lymphocytes % 7.8 % (10-50); Mean Corpuscular HGB Conc 31.8 g/dL (31.8-35.4); Mean Corpuscular Hemoglobin 32.8 pg (27.0-31.2); Mean Corpuscular Volume 103.1 fl (80-94); Mean Platelet Volume 14.3 fl (7.4-10.4); Monocytes # 0.3 K/mm3 (0.1-1.0); Monocytes % 6.6 % (1.7-9.3); Neutrophils # 3.9 K/mm3 (1.8-7.8); Neutrophils % 85.1 % (37.0-80.0); Platelet Count 64 K/mm3 (142-424); Red Blood Count 3.07 M/mm3 (4.60-6.20); Red Cell Distribution Width 16.6 % (11.5-17.5); White Blood Count 4.6 K/mm3 (4.8-10.8)
[2022-10-14 20:39] LABS: MANUAL DIFFERENTIAL MANUAL DIFFERENTIAL (MANUAL DIFF)
[2022-10-14 20:41] LABS: Chloride 106 mmol/L (98-107); Potassium 4.3 mmoL/L (3.5-5.1); Sodium 140 mmol/L (136-145)
[2022-10-14 20:44] LABS: Alanine Aminotransferase 40 U/L (12-78); Albumin Level 2.9 g/dl (3.5-5.0); Albumin/Globulin Ratio 1.3 (1.1-1.8); Alkaline Phosphatase 101 U/L (38-126); Anion Gap 15.3 mEq/L (5-15); Aspartate Amino Transferase 42 U/L (17-59); Bilirubin,Total 0.4 mg/dl (0.2-1.3); Carbon Dioxide 23 mmol/L (22.0-30.0); Creatinine Clearance Estimated 18 mL/min (50-200); Estimated Glomerular Filt Rate 22 ml/min (>60); GFR (African American) 26 ML/MIN (>60); Globulin 2.3 g/dL (1.3-3.2); Total Protein,Serum 5.2 g/dl (6.3-8.2)
[2022-10-14 20:45] LABS: Calcium 8.2 mg/dl (8.4-10.2); Glucose 96 mg/dl (74-100)
[2022-10-14 20:47] LABS: Blood Urea Nitrogen 86 mg/dl (9-20)
[2022-10-14 20:48] LABS: ABG Base Excess -4.6 mmol/L (-2.4-2.3); ABG HCO3 20.7 mmhg (22.0-26.0); ABG Oxygen Saturation 95 % (90-100); ABG PCO2 36.6 mmhg (35.0-45.0); ABG PH 7.37 mmol/L (7.35-7.45); ABG PO2 72.5 mmhg (80-100); ABG TCO2 21.8 mmhg (23-27); Allen's Test y; Oxygen 5 %; Source Left Radial
[2022-10-14 21:02] LABS: Hypochromasia 1+; Lymphocytes % 7 % (10-50); Macrocytosis 2+; Monocytes % 1 % (2-9); Neutrophils % 84 % (42-76); Platelet Estimate Moderate Decrease; Total Cells Counted 100
[2022-10-14 21:03] LABS: Anisocytosis 1+
--- NOTE | 2022-10-14 21:10 | PC.NURSE ---
notified MD Clifton and MI Urbina of pt's critical BUN of 86, bolus already being given, no new orders at this time
--- NOTE | 2022-10-14 22:06 | PC.NURSE ---
2129-pt had large bowel movement, cleaned pt up and changed sheets, vann now having small UOP in bag 2144-bp 116/47, decreased ken drip to 105mcg/min 2199-bp 101/47, decreased ken drip to 100mcg/min
--- NOTE | 2022-10-14 22:45 | PC.NURSE ---
pt had another copious dark green bowel movement, complete liquid this time (last time was more pasty)
--- NOTE | 2022-10-14 23:32 | PC.NURSE ---
2300-bp 99/49 (70), decreased ken drip to 95mcg/min 2330-bp 103/53 (72), decreased ken drip to 90mcg/min; emptied catheter bag, 80mL UOP obtained
--- NOTE | 2022-10-14 23:51 | PC.NURSE ---
bp 99/48 (69), decreased ken drip to 85mcg/min
[2022-10-15] VITALS (22 sets, daily range): BP systolic 84–108; BP diastolic 38–71; PULSE 74–130; RESP 18–33; TEMP 34.9–36.9; O2SAT 90–100; BMI 22.8
--- NOTE | 2022-10-15 00:01 | PC.NURSE ---
bp 105/52 (73), decreased ken drip to 80mcg/min
--- NOTE | 2022-10-15 00:17 | PC.NURSE ---
bp 109/56, decreased ken drip to 75mcg/min
--- NOTE | 2022-10-15 00:34 | PC.NURSE ---
bp 101/48 (63), decreased ken to 70mcg/min
--- NOTE | 2022-10-15 01:48 | PC.NURSE ---
0050-pt's HR increased to 120's, pt restless and air hungry and labored work of breathing although saturation on monitor 93-94%, pt continuing to place nasal cannula in mouth and stated can't get any air and rubbing nose, changed nasal cannula and added humidification and increased nasal cannula to 5LNC from 4LNC; bp 80/49 (61) increased ken drip to 75mcg/min; oxygen saturation no longer working, changed sites three times and still unable to get pleth on monitor, placed 100% NRB on pt; notified RT Will and MI Urbina; CHERRY CUTTER instructed to start dopamine at 5mcg/kg/min and leave ken at current rate (75mcg/min), dopamine started, RT Will gave breathing treatment and using portable sat probe pt's oxygen saturations 91-93%, monitor now showing pleth and pt's oxygen saturations 96-100% on NRB, HR back down to 70-80's, pt's work of breathing improving, sbp above 90 and map's above 65 at this time, pt resting and call light within reach
[2022-10-15 06:25] LABS: Alanine Aminotransferase 40 U/L (12-78); Albumin Level 3.1 g/dl (3.5-5.0); Albumin/Globulin Ratio 1.3 (1.1-1.8); Alkaline Phosphatase 98 U/L (38-126); Anion Gap 16.2 mEq/L (5-15); Aspartate Amino Transferase 47 U/L (17-59); Bilirubin,Total 0.4 mg/dl (0.2-1.3); Calcium 8.1 mg/dl (8.4-10.2); Carbon Dioxide 20 mmol/L (22.0-30.0); Chloride 110 mmol/L (98-107); Creatinine Clearance Estimated 18 mL/min (50-200); Estimated Glomerular Filt Rate 21 ml/min (>60); GFR (African American) 25 ML/MIN (>60); Globulin 2.3 g/dL (1.3-3.2); Glucose 98 mg/dl (74-100); Magnesium 1.6 mg/dl (1.6-2.3); Potassium 4.2 mmoL/L (3.5-5.1); Sodium 142 mmol/L (136-145); Total Protein,Serum 5.4 g/dl (6.3-8.2)
[2022-10-15 06:39] LABS: Basophils % 0.1 % (0.1-2.0); Hematocrit 33.6 % (42.0-52.0); Hemoglobin 10.6 g/dL (14.1-18.0); Lymphocytes # 0.4 K/mm3 (0.7-4.5); Lymphocytes % 5.2 % (10-50); Mean Corpuscular HGB Conc 31.5 g/dL (31.8-35.4); Mean Corpuscular Hemoglobin 32.8 pg (27.0-31.2); Mean Corpuscular Volume 104.1 fl (80-94); Mean Platelet Volume 13.5 fl (7.4-10.4); Monocytes # 0.4 K/mm3 (0.1-1.0); Monocytes % 5.4 % (1.7-9.3); Neutrophils # 6.4 K/mm3 (1.8-7.8); Neutrophils % 89.4 % (37.0-80.0); Platelet Count 68 K/mm3 (142-424); Red Blood Count 3.23 M/mm3 (4.60-6.20); Red Cell Distribution Width 16.6 % (11.5-17.5); White Blood Count 7.2 K/mm3 (4.8-10.8)
[2022-10-15 06:44] LABS: Blood Urea Nitrogen 82 mg/dl (9-20)
[2022-10-15 06:48] LABS: MANUAL DIFFERENTIAL MANUAL DIFFERENTIAL (MANUAL DIFF)
--- NOTE | 2022-10-15 07:00 | CA_ITS ---
APPROVED REPORT EXAM: Comprehensive 2D, Doppler, and color-flow Echocardiogram Pickle Solution Maker: EAN Sosa, RVS Ht: 5 ft 8 in Wt: 150lbs BSA: 1.81 BP: 96/43 mmHg Indications: CAD, CABg, S/p pascer 10/14/22, Pleural effusion Echo Enhancing Agent Indication: Rule out thrombus Agent(s) / Amount(s) Used: Definity 2 cc 2D Dimensions IVSd 0.80 cm LVEF (Visual) 37.20 % PWd 1.52 cm LA Volume 119.40 mL LVDd 5.46 cm LA Volume Index 66.00 mL/m2 (M/F) 16-34 LVDs 4.47 cm Aortic Root 2.94 cm Left Atrium 4.16 cm LVOT 2.05 cm (M/F) 1.5-2.5 M-Mode Dimensions LA Diam 4.64 cm (1.9-4.0) Ao Diam 2.77 cm (2.0-3.7) EPSs 2.01 cm TAPSE 1.93 (<1.7) LV Diastology E Decel Time 167.00 (160-240 msec) E/A Ratio 0.87 MED E' 2.80 (< 7 cm/sec) MED A' 5.60 cm/s E'/MED E' Ratio 35.07 (>14) LAT E' 5.50 (<10 cm/sec) LAT A' 13.70 cm/s E/LAT E' Ratio 17.85 (>14) Aortic Valve LVOT Max 114.00 (70-110 cm/s) LVOT VTI 30.06 cm AoV Peak Jeovany. 346.00 (50-130 cm/s) AI PHT 537.00 ms AO Peak GR. 48.20 mmHg AO Mean GR. 24.50 (<5 mmHg) AO VTI 78.89 (18-25 cm) MARISELA (VTI) 1.26 (2.5-4.5 cm2) Mitral Valve MV A Velocity 113.00 (40-130 cm/s) E/A Ratio 0.87 MV Decel. Time 167.00 (160-240 ms) MV PHT 47.00 ms Pulmonary Valve PV Peak Velocity 79.00 (50-150 cm/s) CO End VMAX 174.00 cm/s Tricuspid Valve TR P. Velocity 280.00 cm/s RAP Estimate 10.00 mmHg RVSP 41.30 mmHg Left Ventricle Technically difficult study because of the patient factors and poor acoustic windows, Definity contrast was utilized to delineate the endocardial surfaces. Left atrium is moderately enlarged, left ventricle is moderately dilated, there is severely reduced left ventricular systolic function, visually estimated ejection fraction approximately 20%, left ventricle is globally hypokinetic, there is no left ventricular thrombus seen, Doppler evidence of low cardiac output state seen. Right Ventricle Right atrium and right ventricle moderately enlarged, pacemaker lead seen in right ventricle, right ventricle contractility appears to be mildly reduced. Aortic Valve Aortic valve is not well visualized, there is calcification present on the aortic valve, the maximum aortic outflow velocity recorded study is 3.5 m/s, resulting in a mean gradient across aortic valve of 25 mmHg, valve area is calculated at 0.7 cm??? this likely represents severe aortic stenosis in association with low flow state. There is mild aortic insufficiency. Mitral Valve Mitral valve leaflets are minimally thickened, there is moderate mitral regurgitation. Tricuspid Valve Tricuspid valve grossly normal, there is moderate tricuspid regurgitation, calculated right ventricular systolic pressure is 39 mmHg. Pulmonic Valve Pulmonic valve is poorly visualized. Great Vessels Aortic root is normal size. Inferior vena cava is poorly visualized. Pericardium No significant pericardial effusion noted. Conclusion 1. Biatrial enlargement, dilated left ventricle, severe reduced left ventricular systolic function, estimated ejection fraction approximately 20%, left ventricle is globally hypokinetic, Doppler evidence of low cardiac output state seen. There is no left ventricular thrombus seen. 2. Moderately enlarged right ventricle with mild reduced contractility. 3. Thickened and calcified aortic valve, the mean gradient across aortic va
--- NOTE | 2022-10-15 07:01 | PC.NURSE ---
notified MD Everett of pt's critical BUN of 86
[2022-10-15 07:19] LABS: Lymphocytes % 4 % (10-50); Monocytes % 3 % (2-9); Neutrophils % 93 % (42-76); Platelet Estimate Normal; RBC Morphology Normal; Total Cells Counted 100
--- NOTE | 2022-10-15 07:43 | EXP.PHA.CONS ---
Pharmacy Consult Date: 10/15/22 Time: 07:43 Referring provider: DR. AMEZQUITA Reason for Consult:: VANCOMYCIN DOSING Allergies Allergy/AdvReac Type Severity Reaction Status Date / Time No Known Allergies Allergy Verified 08/30/22 10:34 Home Medications Medication Instructions Recorded Confirmed Type allopurinol 300 mg tablet 300 mg PO DAILY gout #90 tabs 08/17/19 10/13/22 History ferrous sulfate 325 mg (65 mg 325 mg PO TID Supplement #270 tabs 08/17/19 10/13/22 History iron) tablet lovastatin 40 mg tablet 40 mg PO HS Cholesterol #90 tabs 08/17/19 10/13/22 History metoprolol succinate 100 mg 100 mg PO DAILY Heart disease #90 08/17/19 10/13/22 History tablet,extended release 24 hr tabs aspirin 81 mg tablet,delayed 81 mg PO DAILY heart health 12/11/21 10/13/22 History release isosorbide mononitrate 30 mg 30 mg PO DAILY blood pressure 02/15/22 10/13/22 History tablet,extended release 24 hr albuterol sulfate 90 mcg/actuation 2 inh inhalation Q6H PRN shortness 07/24/22 10/13/22 Rx aerosol inhaler of breath or wheezing 90 days #8.5 grams ipratropium 0.5 mg-albuterol 3 mg 3 ml inhalation QID PRN shortness 07/24/22 10/13/22 Rx (2.5 mg base)/3 mL nebulization of breath or wheezing #90 mL soln amlodipine 10 mg tablet 10 mg PO DAILY High blood pressure 08/13/22 10/13/22 History colchicine 0.6 mg tablet 0.6 mg PO DAILY gout 08/13/22 10/13/22 History fluticasone propionate 50 1 spray intranasal DAILY Breathing 08/13/22 10/14/22 History mcg/actuation nasal problems spray,suspension potassium chloride 10 mEq 10 meq PO BID Supplement 08/13/22 10/14/22 History capsule,extended release umeclidinium 62.5 mcg-vilanterol 1 inh inhalation DAILY Breathing 08/17/22 10/13/22 History 25 mcg/actuation powdr for problems inhalation (Anoro Ellipta) furosemide 40 mg tablet 40 mg PO DAILY Edema 10/10/22 10/14/22 History losartan 50 mg tablet 50 mg PO DAILY High blood pressure 10/13/22 10/13/22 History hydrochlorothiazide 25 mg tablet 25 mg PO DAILY Fluid 10/14/22 10/14/22 History New Prescriptions to Start Prescriptions: Height: 1.73 m Weight: 68.562 kg Laboratory Results:: Laboratory Results - last 24 hr 10/14/22 05:55: Sodium 141, Potassium 4.2, Chloride 101, Carbon Dioxide 31 H, Anion Gap 13.2, BUN 92 H, Creatinine 2.90 H D, Estimated Creat Clear 18, Estimated GFR 21 L, Est GFR ( Amer) 25 L, Glucose 125 H D, Calcium 9.1, Magnesium 1.9, Total Bilirubin 0.5, AST 58 D, ALT 54 D, Alkaline Phosphatase 126, Total Protein 6.0 L, Albumin 3.6 D, Globulin 2.4, Albumin/Globulin Ratio 1.5, Triglycerides 57, Cholesterol 91 L, LDL Cholesterol Direct < 30.00 L, VLDL Cholesterol 11, HDL Cholesterol 55, Cholesterol/HDL Ratio 1.7 10/14/22 16:15: Urine Color Yellow, Urine Appearance Clear, Urine pH 5.0, Ur Specific [place] 1.025, Urine Protein Trace, Urine Glucose (UA) Negative, Urine Ketones Negative, Urine Blood Negative, Urine Nitrate Negative, Urine Bilirubin Negative, Urine Urobilinogen 0.2, Ur Leukocyte Esterase Negative, Urine RBC Occasional, Urine WBC Occasional, Ur Squamous Epith Cells Occasional, Urine Bacteria None 10/14/22 18:45: Sodium 140, Potassium 4.4, Chloride 106, Carbon Dioxide 23, Anion Gap 15.4 H, BUN 87 H, Creatinine 2.90 H, Estimated Creat Clear 18, Estimated GFR 21 L, Est GFR ( Amer) 25 L, Glucose 99 D, Calcium 8.1 L 10/14/22 20:04: Specimen Source Left radial, O2 % 5, ABG pH 7.37, ABG pCO2 36.6, ABG pO2 72.5 L, ABG HCO3 20.7 L, ABG Total CO2 21.8 L, ABG O2 Saturation 95, ABG Base Excess -4.6 L, Jesse Test y 10/14/22 20:24: WBC 4.6 L, RBC 3.07 L, Hgb 10.1 L, Hct 31.6 L, MCV 103.1 H, MCH 32.8 H, MCHC 31.8, RDW 16.6, Plt Count 64 L, MPV 14.3 H, Neut % (Auto) 85.1 H, Lymph % (Auto) 7.8 L, [place] % (Auto) 6.6, Eos % (Auto) 0.3, Baso % (Auto) 0.2, Neut # (Auto) 3.9, Lymph # (Auto) 0.4 L, [place] # (Auto) 0.3, Eos # (Auto) 0.0, Baso # (Auto) 0.0, Total Counted 100, Neutrophils % (Manual) 84 H, Band Neutrophils % 8
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
--- NOTE | 2022-10-15 10:22 | EXP.PN ---
Subjective *Date: 10/16/22 *Time: 10:00 Interval history: Continue to hold aspirin. Patient still on phenylephrine and dopamine. Dopamine started overnight. Oxygen saturations 88-96 on 5 L nasal cannula. Patient denies chest pain, nausea, vomiting. Does not recall having a bowel movement in the past 1 to 2 days. Asking for something to drink, states his mouth is dry. Alert and oriented. Afebrile. Exam Data for Last 24 hours Vital signs and Labs for Last 24 Hours: Temp Pulse Resp BP Pulse Ox 97.9 F 75 19 105/52 L 98 10/14/22 23:30 10/15/22 00:00 10/15/22 00:00 10/15/22 00:00 10/15/22 00:00 Laboratory Results - last 24 hr 10/14/22 05:55: WBC 4.8 D, RBC 3.34 L, Hgb 10.9 L D, Hct 34.0 L, MCV 101.9 H, MCH 32.7 H, MCHC 32.1, RDW 16.6, Plt Count 73 L D, MPV 12.8 H, Neut % (Auto) 77.8, Lymph % (Auto) 12.5, [place] % (Auto) 9.2, Eos % (Auto) 0.3, Baso % (Auto) 0.2, Neut # (Auto) 3.8, Lymph # (Auto) 0.6 L, [place] # (Auto) 0.5, Eos # (Auto) 0.0, Baso # (Auto) 0.0 10/14/22 05:55: Sodium 141, Potassium 4.2, Chloride 101, Carbon Dioxide 31 H, Anion Gap 13.2, BUN 92 H, Creatinine 2.90 H D, Estimated Creat Clear 18, Estimated GFR 21 L, Est GFR ( Amer) 25 L, Glucose 125 H D, Calcium 9.1, Magnesium 1.9, Total Bilirubin 0.5, AST 58 D, ALT 54 D, Alkaline Phosphatase 126, Total Protein 6.0 L, Albumin 3.6 D, Globulin 2.4, Albumin/Globulin Ratio 1.5, Triglycerides 57, Cholesterol 91 L, LDL Cholesterol Direct < 30.00 L, VLDL Cholesterol 11, HDL Cholesterol 55, Cholesterol/HDL Ratio 1.7 10/14/22 16:15: Urine Color Yellow, Urine Appearance Clear, Urine pH 5.0, Ur Specific [place] 1.025, Urine Protein Trace, Urine Glucose (UA) Negative, Urine Ketones Negative, Urine Blood Negative, Urine Nitrate Negative, Urine Bilirubin Negative, Urine Urobilinogen 0.2, Ur Leukocyte Esterase Negative, Urine RBC Occasional, Urine WBC Occasional, Ur Squamous Epith Cells Occasional, Urine Bacteria None 10/14/22 18:45: Sodium 140, Potassium 4.4, Chloride 106, Carbon Dioxide 23, Anion Gap 15.4 H, BUN 87 H, Creatinine 2.90 H, Estimated Creat Clear 18, Estimated GFR 21 L, Est GFR ( Amer) 25 L, Glucose 99 D, Calcium 8.1 L 10/14/22 20:04: Specimen Source Left radial, O2 % 5, ABG pH 7.37, ABG pCO2 36.6, ABG pO2 72.5 L, ABG HCO3 20.7 L, ABG Total CO2 21.8 L, ABG O2 Saturation 95, ABG Base Excess -4.6 L, Jesse Test y 10/14/22 20:24: WBC 4.6 L, RBC 3.07 L, Hgb 10.1 L, Hct 31.6 L, MCV 103.1 H, MCH 32.8 H, MCHC 31.8, RDW 16.6, Plt Count 64 L, MPV 14.3 H, Neut % (Auto) 85.1 H, Lymph % (Auto) 7.8 L, [place] % (Auto) 6.6, Eos % (Auto) 0.3, Baso % (Auto) 0.2, Neut # (Auto) 3.9, Lymph # (Auto) 0.4 L, [place] # (Auto) 0.3, Eos # (Auto) 0.0, Baso # (Auto) 0.0, Total Counted 100, Neutrophils % (Manual) 84 H, Band Neutrophils % 8.0, Lymphocytes % (Manual) 7 L, Monocytes % (Manual) 1 L, Platelet Estimate Moderate decrease, Hypochromasia 1+, Anisocytosis 1+, Macrocytosis 2+ 10/14/22 20:24: Sodium 140, Potassium 4.3, Chloride 106, Carbon Dioxide 23, Anion Gap 15.3 H, BUN 86 H, Creatinine 2.80 H, Estimated Creat Clear 18, Estimated GFR 22 L, Est GFR ( Amer) 26 L, Glucose 96, Calcium 8.2 L, Total Bilirubin 0.4, AST 42 D, ALT 40 D, Alkaline Phosphatase 101, Total Protein 5.2 L, Albumin 2.9 L D, Globulin 2.3, Albumin/Globulin Ratio 1.3 I & O for Last 24 hours: Intake & Output 10/12/22 10/13/22 10/14/22 10/15/22 23:59 23:59 23:59 23:59 Intake Total 1454 / 1454 Output Total 430 / 430 Balance 1024 / 1024 Weight 68.353 kg Constitutional Constitutional: mild distress, average body habitus and chronically ill appearing *Routine HEENT Exam Head: Present normocephalic and atraumatic Eye: Present EOMI ENT: Present mucous membranes dry Comments: Macroglossia, large ears. *Routine Neck Exam Neck: Present supple Routine Chest/Breast/Axilla Exam Comments: Well-healed sternotomy scar., Pacer pocket with no bleeding or erythema. *Routine Respiratory Exam Respiratory: Presen
--- NOTE | 2022-10-15 17:44 | PC.NURSE ---
0730- dopamine titrated to 3mcg bp 100/69 0800-dopamine titrated off bp 104/48 0820- ken titrated to 70mcg, bp 103/58
--- NOTE | 2022-10-15 17:45 | PC.NURSE ---
1630- patients rectal temp 94.9, tres mcbride applied at this time 1730- rectal temp 96.9
[2022-10-15 18:06] LABS: Chloride 110 mmol/L (98-107); Potassium 3.8 mmoL/L (3.5-5.1); Sodium 142 mmol/L (136-145)
[2022-10-15 18:09] LABS: Alanine Aminotransferase 29 U/L (12-78); Albumin Level 2.6 g/dl (3.5-5.0); Albumin/Globulin Ratio 1.1 (1.1-1.8); Alkaline Phosphatase 78 U/L (38-126); Aspartate Amino Transferase 40 U/L (17-59); Bilirubin,Total 0.3 mg/dl (0.2-1.3); Calcium 7.8 mg/dl (8.4-10.2); Carbon Dioxide 21 mmol/L (22.0-30.0); Creatinine Clearance Estimated 18 mL/min (50-200); Estimated Glomerular Filt Rate 22 ml/min (>60); GFR (African American) 26 ML/MIN (>60); Globulin 2.3 g/dL (1.3-3.2); Glucose 86 mg/dl (74-100); Total Protein,Serum 4.9 g/dl (6.3-8.2)
[2022-10-15 18:10] LABS: Basophils % 0.1 % (0.1-2.0); Eosinophils % 0.4 % (0.1-12.0); Hematocrit 30.6 % (42.0-52.0); Hemoglobin 9.7 g/dL (14.1-18.0); Lymphocytes # 0.2 K/mm3 (0.7-4.5); Lymphocytes % 3.5 % (10-50); Mean Corpuscular HGB Conc 31.8 g/dL (31.8-35.4); Mean Corpuscular Hemoglobin 32.7 pg (27.0-31.2); Mean Corpuscular Volume 102.9 fl (80-94); Mean Platelet Volume 13.8 fl (7.4-10.4); Monocytes # 0.3 K/mm3 (0.1-1.0); Monocytes % 3.9 % (1.7-9.3); Neutrophils # 6.4 K/mm3 (1.8-7.8); Neutrophils % 92.1 % (37.0-80.0); Platelet Count 53 K/mm3 (142-424); Red Blood Count 2.97 M/mm3 (4.60-6.20); Red Cell Distribution Width 16.8 % (11.5-17.5); White Blood Count 6.9 K/mm3 (4.8-10.8)
[2022-10-15 18:11] LABS: Anion Gap 14.8 mEq/L (5-15)
[2022-10-15 18:12] LABS: Blood Urea Nitrogen 84 mg/dl (9-20)
[2022-10-15 18:16] LABS: MANUAL DIFFERENTIAL MANUAL DIFFERENTIAL (MANUAL DIFF)
[2022-10-15 19:36] LABS: Lymphocytes % 2 % (10-50); Monocytes % 2 % (2-9); Neutrophils % 96 % (42-76); Total Cells Counted 100
[2022-10-15 19:37] LABS: Macrocytosis 1+; Ovalocytes 1+; Platelet Estimate Moderate Decrease
--- NOTE | 2022-10-15 22:05 | PC.NURSE ---
Spoke with Dr Clifton regarding Heparin ordered. Orders received to hold heparin for now.
[2022-10-15 22:46] LABS: Adenovirus F 40/41, stool Not Detected (NotDetected); Astrovirus Not Detected (NotDetected); Campylobacter Not Detected (NotDetected); Clostridium Difficile A/B, PCR Not Detected (NotDetected); Cryptosporidium Not Detected (NotDetected); Cyclospora Cayetanesis Not Detected (NotDetected); Entamoeba histolytica Not Detected (NotDetected); Enteroaggregative E coli Not Detected (NotDetected); Enteropathogenic E coli Not Detected (NotDetected); Enterotoxigenic E coli Not Detected (NotDetected); Giardia lamblia Not Detected (NotDetected); Norovirus Not Detected (NotDetected); Plesimonas Shigalloides, PCR Not Detected (NotDetected); Rotavirus A Not Detected (NotDetected); Salmonella, PCR Not Detected (NotDetected); Sapovirus Not Detected (NotDetected); Shiga-like toxin E coli Not Detected (NotDetected); Shigella Enterovasive E coli Not Detected (NotDetected); Vibrio Cholerae Not Detected (NotDetected); Vibrio, PCR Not Detected (NotDetected); Yersinia Entercolitica, PCR Not Detected (NotDetected)
--- NOTE | 2022-10-15 23:06 | EXP.PN ---
Subjective *Date: 10/17/22 *Time: 13:30 Interval history: nursing noted change in mentation, resp rate 35, morte confused. BS 61, Exam Data for Last 24 hours Vital signs and Labs for Last 24 Hours: Temp Pulse Resp BP Pulse Ox 98.0 F 80 23 97/38 L 96 10/15/22 20:00 10/15/22 20:00 10/15/22 18:00 10/15/22 18:00 10/15/22 18:00 Laboratory Results - last 24 hr 10/15/22 05:32: WBC 7.2 D, RBC 3.23 L, Hgb 10.6 L, Hct 33.6 L, MCV 104.1 H, MCH 32.8 H, MCHC 31.5 L, RDW 16.6, Plt Count 68 L, MPV 13.5 H, Neut % (Auto) 89.4 H, Lymph % (Auto) 5.2 L, [place] % (Auto) 5.4, Eos % (Auto) 0.0 L, Baso % (Auto) 0.1, Neut # (Auto) 6.4, Lymph # (Auto) 0.4 L, [place] # (Auto) 0.4, Eos # (Auto) 0.0, Baso # (Auto) 0.0, Total Counted 100, Neutrophils % (Manual) 93 H, Lymphocytes % (Manual) 4 L, Monocytes % (Manual) 3, Platelet Estimate Normal, RBC Morphology Normal 10/15/22 05:32: Sodium 142, Potassium 4.2, Chloride 110 H, Carbon Dioxide 20 L, Anion Gap 16.2 H, BUN 82 H, Creatinine 2.90 H, Estimated Creat Clear 18, Estimated GFR 21 L, Est GFR ( Amer) 25 L, Glucose 98, Calcium 8.1 L, Magnesium 1.6 D, Total Bilirubin 0.4, AST 47, ALT 40, Alkaline Phosphatase 98, Total Protein 5.4 L, Albumin 3.1 L, Globulin 2.3, Albumin/Globulin Ratio 1.3 10/15/22 17:40: WBC 6.9, RBC 2.97 L, Hgb 9.7 L, Hct 30.6 L, MCV 102.9 H, MCH 32.7 H, MCHC 31.8, RDW 16.8, Plt Count 53 L, MPV 13.8 H, Neut % (Auto) 92.1 H, Lymph % (Auto) 3.5 L, [place] % (Auto) 3.9, Eos % (Auto) 0.4, Baso % (Auto) 0.1, Neut # (Auto) 6.4, Lymph # (Auto) 0.2 L, [place] # (Auto) 0.3, Eos # (Auto) 0.0, Baso # (Auto) 0.0, Total Counted 100, Neutrophils % (Manual) 96 H, Lymphocytes % (Manual) 2 L, Monocytes % (Manual) 2, Platelet Estimate Moderate decrease, Macrocytosis 1+, Ovalocytes 1+ 10/15/22 17:40: Sodium 142, Potassium 3.8, Chloride 110 H, Carbon Dioxide 21 L, Anion Gap 14.8, BUN 84 H, Creatinine 2.80 H, Estimated Creat Clear 18, Estimated GFR 22 L, Est GFR ( Amer) 26 L, Glucose 86, Calcium 7.8 L, Total Bilirubin 0.3, AST 40, ALT 29 D, Alkaline Phosphatase 78, Total Protein 4.9 L, Albumin 2.6 L D, Globulin 2.3, Albumin/Globulin Ratio 1.1 I & O for Last 24 hours: Intake & Output 10/12/22 10/13/22 10/14/22 10/15/22 23:59 23:59 23:59 23:59 Intake Total 1454 / 1454 5538 / 5538 Output Total 430 / 430 305 / 305 Balance 1024 / 1024 5233 / 5233 Weight 68.353 kg 68.56 kg Constitutional Constitutional: mild distress and thin Comments: confused. j picking at things. *Routine HEENT Exam Head: Present normocephalic Comments: dry mouth , is moutgh breather. *Routine Respiratory Exam Respiratory: Present respiratory distress Comments: lungs clear but rate 36 , pulse ox not picking up sat *Routine Cardiovascular Exam Cardiovascular: Present RRR and tachycardia Comments: paced with period of rate going up to 120 now back to 83 *Routine Abdominal Exam Abdominal: Present soft Comments: non tender *Routine Skin Exam Comments: bleeding from iv site. is pink *Routine Neurological Exam Neurological: Present altered mental status Assessment and Plan *Assessment and plan (1) Respiratory rate-rapid: Status: Acute Category: Medical Code(s): R06.82 - Tachypnea, not elsewhere classified (2) Confusion: Status: Acute Category: Medical Code(s): R41.0 - Disorientation, unspecified (3) CO2 retention: Status: Acute Category: Medical Code(s): E87.29 - Other acidosis Plan 1, d50 1/2 amp given no change is status 2, place on bi pap due to low ph / high co 2 Agree with findings and care plan as documented.
[2022-10-15 23:14] LABS: POC Glucose,Bedside 62 (70-110)
[2022-10-15 23:15] LABS: Occult Blood,Stool Positive (Negative)
--- NOTE | 2022-10-15 23:27 | ECG_ITS ---
APPROVED REPORT Exam: Resting ECG HR:80 bpm ECG Measurements Heart Rate 80 AXES QRSd 185 QRS -56 QT 445 T 135 QTc 480 Conclusion UNCERTAIN IRREGULAR RHYTHM ELECTRONIC VENTRICULAR PACEMAKER -- CONTOUR ANALYSIS BASED ON INTRINSIC RHYTHM INTRAVENTRICULAR CONDUCTION DELAY [130+ ms QRS DURATION] ABNORMAL ECG UNCONFIRMED REPORT Electronically signed by : Alex Mckeon MD 10/16/2022 19:12:26
[2022-10-15 23:38] LABS: ABG Base Excess -12.6 mmol/L (-2.4-2.3); ABG HCO3 16.6 mmhg (22.0-26.0); ABG Oxygen Saturation 87 % (90-100); ABG PO2 63.4 mmhg (80-100); ABG TCO2 18.2 mmhg (23-27); Allen's Test Patient Unable; Oxygen 50% %; Source Left Brachial
[2022-10-15 23:39] LABS: ABG PH 7.13 mmol/L (7.35-7.45)
[2022-10-15 23:40] LABS: ABG PCO2 51.1 mmhg (35.0-45.0)
[2022-10-16] VITALS (17 sets, daily range): BP systolic 86–112; BP diastolic 39–55; PULSE 75–113; RESP 18–27; TEMP 36.3–36.8; O2SAT 88–100
--- NOTE | 2022-10-16 00:03 | PC.NURSE ---
Upon assessment, pt very confused, pulling off Nasal cannula, tele leads. Mittens placed on pt and pt consistently removes mittens. Pt pale and cyanotic. RR in 30's. Pt placed on Venti mask 50%per RT Stool noted to have small amount of blood, and blood noted to be leaking from IV site. Pt tachy in 130's at times, and several runs of V-tach noted on telemetry. FSBS obtained and reads 62. Rectal temp obtained, 98.5. JACKY Urbina notified of all assessment findings, Dr Clifton updated. New orders received and carried out. ABG and EKG obtained. Seen by [facility] [employer] Pt was placed on BIPAP @2320- 15/5 60% 1/2 amp D50 IV given @2323 Hydrocortisone 100 mg IV given @2349. Pt remains on Marlon gtt, currently infusing @90 mcg/min.
[2022-10-16 00:30] LABS: ABG Base Excess -10.3 mmol/L (-2.4-2.3); ABG HCO3 17.1 mmhg (22.0-26.0); ABG Oxygen Saturation 99 % (90-100); ABG PCO2 41.5 mmhg (35.0-45.0); ABG PH 7.23 mmol/L (7.35-7.45); ABG PO2 141.5 mmhg (80-100); ABG TCO2 18.4 mmhg (23-27); Oxygen 60% %; Vent Rate 18
[2022-10-16 00:31] LABS: Allen's Test Patient Unable; Pressure Support BIPAP 15/5; Source Right Radial
[2022-10-16 06:11] LABS: ABG Base Excess -10.7 mmol/L (-2.4-2.3); ABG HCO3 15.8 mmhg (22.0-26.0); ABG Oxygen Saturation 97 % (90-100); ABG PCO2 33.6 mmhg (35.0-45.0); ABG PH 7.29 mmol/L (7.35-7.45); ABG PO2 96.5 mmhg (80-100); ABG TCO2 16.9 mmhg (23-27)
[2022-10-16 06:20] LABS: Allen's Test acceptable; Oxygen 40 %; Tidal Volume 15/5
--- NOTE | 2022-10-16 07:02 | PC.NURSE ---
Pt BIPAP settings now 15/5 40% FIO2. Marlon gtt currently infusing @ 90mcg/min. 100 ml clear/yellow UO per vann catheter this shift. Pt alert to person and place and follows verbal commands. FSBS 99 this morning.
[2022-10-16 07:23] LABS: POC Glucose,Bedside 99 (70-110)
--- NOTE | 2022-10-16 08:55 | PC.NURSE ---
pt changed to 5 lpm r/t pulling at bipap and per family request.
--- NOTE | 2022-10-16 09:40 | PC.NURSE ---
at start of shift pt on ken drip at 90mcg drip decreased to 80mcg at 0925
--- NOTE | 2022-10-16 10:43 | DIET.NUTRFU ---
Provider to upgrade diet once reviewed POC with family and decide on comfort measures. At that time he can be advanced to regular diet with comfort foods
--- NOTE | 2022-10-16 11:22 | EXP.CARD.PN ---
Subjective Subjective Date: 10/16/22 Time: 11:22 Principal diagnosis: symptomatic bradycardia Interval history: This is an 87-year-old gentleman who presented to the emergency department with symptomatic bradycardia. The patient was found to be in third-degree heart block and bradycardia. The patient was monitoring his heart rate regularly at home and found that he was bradycardic in the 30s and 40s. He was feeling more fatigued with increased leg swelling over the last 1 to 2 weeks. He came into the emergency department when his heart rate got into the 30s. He did have an increased cough and was wanting to sleep more. He was requiring more oxygen at home as well. The patient was started on dopamine and levo for heart rate control and blood pressure. The patient underwent biventricular pacemaker placement over the weekend. This morning the patient still appears very short of breath. He states that he does feel short of breath a lot and multiple times he stated that he needed a year. He denies any chest pain or pressure. He denies any edema. He denies any fever, chills, nausea, vomiting, diarrhea. Shortness of breath is associated with orthopnea. The patient remains on oxygen via nasal cannula because he is declining using the BiPAP at this time. He remains on Marlon-Synephrine this morning for blood pressure support. Exam Data for Last 24 hours Vital signs and Labs for Last 24 Hours: Temp Pulse Resp BP Pulse Ox FiO2 97.4 F L 81 22 111/46 L 89 L 40 10/16/22 07:40 10/16/22 10:15 10/16/22 10:15 10/16/22 10:15 10/16/22 10:15 10/16/22 08:00 Laboratory Results - last 24 hr 10/15/22 16:28: Stl Aeromonas (PCR) Not detected, Stl C. cayetanensis PCR Not detected, Stool Rotavirus (PCR) Not detected, Stl Adenov F 40/41 PCR Not detected, Stool Astrovirus (PCR) Not detected, Stool Campylobacter PCR Not detected, Stl C.difficile Tox PCR Not detected, Stool Cryptosporidium PCR Not detected, Stl E.coli Shiga Tox PCR Not detected, Stool E coli O157 PCR Not detected, Stl Enterotoxigenic E PCR Not detected, Stool EPEC (PCR) Not detected, Stool EAEC (PCR) Not detected, Stl E. histolytica PCR Not detected, Stool Giardia Lamblia PCR Not detected, Stool Salmonella PCR Not detected, Stool Sapovirus (PCR) Not detected, Stl P. shigelloides PCR Not detected, Stl Shigella/EIEC PCR Not detected, St Y.enterocolitica PCR Not detected, Stool Vibrio (PCR) Not detected, Stl Vibrio cholerae PCR Not detected, Stl Norovirus GI/GII PCR Not detected 10/15/22 16:28: Stool Occult Blood Positive A 10/15/22 17:40: WBC 6.9, RBC 2.97 L, Hgb 9.7 L, Hct 30.6 L, MCV 102.9 H, MCH 32.7 H, MCHC 31.8, RDW 16.8, Plt Count 53 L, MPV 13.8 H, Neut % (Auto) 92.1 H, Lymph % (Auto) 3.5 L, [place] % (Auto) 3.9, Eos % (Auto) 0.4, Baso % (Auto) 0.1, Neut # (Auto) 6.4, Lymph # (Auto) 0.2 L, [place] # (Auto) 0.3, Eos # (Auto) 0.0, Baso # (Auto) 0.0, Total Counted 100, Neutrophils % (Manual) 96 H, Lymphocytes % (Manual) 2 L, Monocytes % (Manual) 2, Platelet Estimate Moderate decrease, Macrocytosis 1+, Ovalocytes 1+ 10/15/22 17:40: Sodium 142, Potassium 3.8, Chloride 110 H, Carbon Dioxide 21 L, Anion Gap 14.8, BUN 84 H, Creatinine 2.80 H, Estimated Creat Clear 18, Estimated GFR 22 L, Est GFR ( Amer) 26 L, Glucose 86, Calcium 7.8 L, Total Bilirubin 0.3, AST 40, ALT 29 D, Alkaline Phosphatase 78, Total Protein 4.9 L, Albumin 2.6 L D, Globulin 2.3, Albumin/Globulin Ratio 1.1 10/15/22 22:38: POC Glucose 62 L 10/15/22 23:01: Specimen Source Left brachial, O2 % 50%, ABG pH 7.13 L*, ABG pCO2 51.1 H, ABG pO2 63.4 L, ABG HCO3 16.6 L, ABG Total CO2 18.2 L, ABG O2 Saturation 87 L*, ABG Base Excess -12.6 L, Jesse Test Patient unable 10/16/22 00:20: Specimen Source Right radial, O2 % 60%, ABG pH 7.23 L*, ABG pCO2 41.5, ABG pO2 141.5 H, ABG HCO3 17.1 L, ABG Total CO2 18.4 L, ABG O2 Saturation 99, ABG Base Excess -10.3 L, Jesse Test Patient unable, Vent Rate 18 10/16/22 06:00: Specimen Source r radial, O2 % 40, ABG pH 7.29 L,
--- NOTE | 2022-10-16 11:53 | PC.NURSE ---
received notification from MRI that due to pt implanted pacemaker, he is unable to have an MRI. Dr Uribe informed at this time.
--- NOTE | 2022-10-16 15:20 | EXP.PN ---
Subjective *Date: 10/16/22 *Time: 15:32 Interval history: Date of service October 16, 2022 The patient is accompanied by his grandson at bedside. I am accompanied by multiple members of the multidisciplinary team including nursing staff and case management. The patient reports difficulty breathing. We have discussed his echocardiogram and identified severe aortic stenosis. He has requested no surgical intervention or transition of care to a tertiary facility. He understands that he will not survive his disease without medical intervention. We have reviewed and discussed his morning laboratory results including his elevated creatinine. He is requesting that I speak to his daughter who will be in later this afternoon about end-of-life care. Exam Data for Last 24 hours Vital signs and Labs for Last 24 Hours: Temp Pulse Resp BP Pulse Ox FiO2 97.8 F 90 22 90/46 L 100 40 10/16/22 11:42 10/16/22 14:00 10/16/22 14:00 10/16/22 14:00 10/16/22 14:00 10/16/22 08:00 Laboratory Results - last 24 hr 10/15/22 16:28: Stl Aeromonas (PCR) Not detected, Stl C. cayetanensis PCR Not detected, Stool Rotavirus (PCR) Not detected, Stl Adenov F 40/41 PCR Not detected, Stool Astrovirus (PCR) Not detected, Stool Campylobacter PCR Not detected, Stl C.difficile Tox PCR Not detected, Stool Cryptosporidium PCR Not detected, Stl E.coli Shiga Tox PCR Not detected, Stool E coli O157 PCR Not detected, Stl Enterotoxigenic E PCR Not detected, Stool EPEC (PCR) Not detected, Stool EAEC (PCR) Not detected, Stl E. histolytica PCR Not detected, Stool Giardia Lamblia PCR Not detected, Stool Salmonella PCR Not detected, Stool Sapovirus (PCR) Not detected, Stl P. shigelloides PCR Not detected, Stl Shigella/EIEC PCR Not detected, St Y.enterocolitica PCR Not detected, Stool Vibrio (PCR) Not detected, Stl Vibrio cholerae PCR Not detected, Stl Norovirus GI/GII PCR Not detected 10/15/22 16:28: Stool Occult Blood Positive A 10/15/22 17:40: WBC 6.9, RBC 2.97 L, Hgb 9.7 L, Hct 30.6 L, MCV 102.9 H, MCH 32.7 H, MCHC 31.8, RDW 16.8, Plt Count 53 L, MPV 13.8 H, Neut % (Auto) 92.1 H, Lymph % (Auto) 3.5 L, [place] % (Auto) 3.9, Eos % (Auto) 0.4, Baso % (Auto) 0.1, Neut # (Auto) 6.4, Lymph # (Auto) 0.2 L, [place] # (Auto) 0.3, Eos # (Auto) 0.0, Baso # (Auto) 0.0, Total Counted 100, Neutrophils % (Manual) 96 H, Lymphocytes % (Manual) 2 L, Monocytes % (Manual) 2, Platelet Estimate Moderate decrease, Macrocytosis 1+, Ovalocytes 1+ 10/15/22 17:40: Sodium 142, Potassium 3.8, Chloride 110 H, Carbon Dioxide 21 L, Anion Gap 14.8, BUN 84 H, Creatinine 2.80 H, Estimated Creat Clear 18, Estimated GFR 22 L, Est GFR ( Amer) 26 L, Glucose 86, Calcium 7.8 L, Total Bilirubin 0.3, AST 40, ALT 29 D, Alkaline Phosphatase 78, Total Protein 4.9 L, Albumin 2.6 L D, Globulin 2.3, Albumin/Globulin Ratio 1.1 10/15/22 22:38: POC Glucose 62 L 10/15/22 23:01: Specimen Source Left brachial, O2 % 50%, ABG pH 7.13 L*, ABG pCO2 51.1 H, ABG pO2 63.4 L, ABG HCO3 16.6 L, ABG Total CO2 18.2 L, ABG O2 Saturation 87 L*, ABG Base Excess -12.6 L, Jesse Test Patient unable 10/16/22 00:20: Specimen Source Right radial, O2 % 60%, ABG pH 7.23 L*, ABG pCO2 41.5, ABG pO2 141.5 H, ABG HCO3 17.1 L, ABG Total CO2 18.4 L, ABG O2 Saturation 99, ABG Base Excess -10.3 L, Jesse Test Patient unable, Vent Rate 18 10/16/22 06:00: Specimen Source r radial, O2 % 40, ABG pH 7.29 L, ABG pCO2 33.6 L, ABG pO2 96.5, ABG HCO3 15.8 L, ABG Total CO2 16.9 L, ABG O2 Saturation 97, ABG Base Excess -10.7 L, Jesse Test acceptable, Tidal Volume 15/10/16/22 07:16: POC Glucose 99 I & O for Last 24 hours: Intake & Output 10/13/22 10/14/22 10/15/22 10/16/22 23:59 23:59 23:59 23:59 Intake Total 1454 / 1454 5538 / 5538 1512 / 1512 Output Total 430 / 430 305 / 305 100 / 100 Balance 1024 / 1024 5233 / 5233 1412 / 1412 Weight 68.353 kg 68.56 kg Constitutional Constitutional: no acute distress *Routine HEENT Exam Head: Present normocephalic Eye: Present EOM
--- NOTE | 2022-10-16 15:23 | SW/DCPLANNER ---
Addendum entered by Yoly Narvaez 10/17/22 07:41: I have updated Leanne/Belinda bridges/ [facility] that patient this AM. Original Note: Patient/family is interested in Hospice Care. Patient information/order has been faxed to [facility]. I will follow up with Leanne Cabrera once patient information is reviewed. Family prefer that they meet with Hospice in patient's room tomorrow morning. Discharge date is unknown at this time.
--- NOTE | 2022-10-16 16:10 | PC.NURSE ---
pt has had several family members visiting this shift. pt has loose productive cough noted. pt is alert to self and is confused as to where he is and the date. lungs have scattered rhonchi, bowel sounds are hypoactive. pt has 3+ pitting edema in ble. after speaking with Dr Uribe regarding hospice, code status was readdressed with family. PT POA, daughter in law ganesh and pt grandchildren have elected to make pt DNR.
--- NOTE | 2022-10-16 18:08 | PC.NURSE ---
face to face notified Dr Uribe at 1730 that throughout the shift pt has developed more rhonchi that is audible. pt is receiving 250ml every 2 hr from the ken drip alone. pt has had very little output from lasix. requested if md wanted to order robinal or have pt deep suctioned 1808 MD at bedside to assess pt at this time. md states to continue to monitor at this time, pt does not appear to be in distress.
--- NOTE | 2022-10-16 20:47 | PC.NURSE ---
Updated Ale SAAB on decline in pt status. Family does not want excessive measures done. Family declined on putting mask on pt to improve O2 sats due to wanting pt to be comfortable and not make pt upset.
[2022-10-17] VITALS (7 sets, daily range): BP systolic 81–114; BP diastolic 39–60; PULSE 75–83; RESP 24–30; TEMP 34.7–35.8; O2SAT 94–99
--- NOTE | 2022-10-17 03:47 | PC.NURSE ---
Pt is becoming less responsive. Respirations are more labored. Hypothermic blanket placed on pt at 0000. Marlon gtt has been titrated up to maintain BP. It is currently infusing @ 130 mcg/min. Coarse crackles noted to lung weiss. Pt remains on 5L O2 NC. 2+ Edema noted to bilateral extremities with weeping to BUE. Urine output is 75 ml thus far. Pt turned/repositioned Q2. Family updated regularly on pt status. Grandson is at bedside.
--- NOTE | 2022-10-17 04:15 | PC.NURSE ---
Evon KILN FURNITURE CASTER notified of continued decline in pt status. POA called and will be coming in. Porter remains at bedside.
--- NOTE | 2022-10-17 05:55 | PC.NURSE ---
POA of pt, Ale spoke with Evon RICO and have decided to withdraw care. Marlon gtt DC.
[2022-10-17 06:08] LABS: Basophils % 0.1 % (0.1-2.0); Eosinophils % 0.2 % (0.1-12.0); Hematocrit 31.9 % (42.0-52.0); Hemoglobin 9.6 g/dL (14.1-18.0); Lymphocytes # 0.2 K/mm3 (0.7-4.5); Lymphocytes % 3.2 % (10-50); Mean Corpuscular Hemoglobin 32.6 pg (27.0-31.2); Mean Corpuscular Volume 108.6 fl (80-94); Mean Platelet Volume 13.8 fl (7.4-10.4); Monocytes # 0.3 K/mm3 (0.1-1.0); Monocytes % 4.6 % (1.7-9.3); Neutrophils # 5.8 K/mm3 (1.8-7.8); Neutrophils % 91.8 % (37.0-80.0); Red Blood Count 2.94 M/mm3 (4.60-6.20); Red Cell Distribution Width 16.8 % (11.5-17.5); White Blood Count 6.3 K/mm3 (4.8-10.8)
[2022-10-17 06:13] LABS: Chloride 116 mmol/L (98-107)
[2022-10-17 06:14] LABS: Potassium 5.2 mmoL/L (3.5-5.1); Sodium 145 mmol/L (136-145)
[2022-10-17 06:17] LABS: Anion Gap 21.2 mEq/L (5-15); Calcium 8.3 mg/dl (8.4-10.2); Carbon Dioxide 13 mmol/L (22.0-30.0); Creatinine Clearance Estimated 13 mL/min (50-200); Estimated Glomerular Filt Rate 15 ml/min (>60); GFR (African American) 18 ML/MIN (>60)
[2022-10-17 06:31] LABS: Blood Urea Nitrogen 91 mg/dl (9-20); Glucose 39 mg/dl (74-100); Platelet Count 50 K/mm3 (142-424)
[2022-10-17 06:32] LABS: MANUAL DIFFERENTIAL MANUAL DIFFERENTIAL (MANUAL DIFF)
--- NOTE | 2022-10-17 06:35 | PC.NURSE ---
Critical lab values reported to Evon RICO. GLucose 39, BUN 91, PLT 50. Pt's family declines for further treatment.
--- NOTE | 2022-10-17 06:54 | PC.NURSE ---
Marlon titration 90 mcg/min @ 2030 100 mcg/min @ 0100 110 mcg/min @ 0200 120 mcg/min @ 0250 130 mcg/min @ 0340 140 mcg/min @ 0403 Marlon withdrawn @ 0555
--- NOTE | 2022-10-17 07:16 | PC.NURSE ---
Dr Uribe in room to pronounce.
[2022-10-17 08:02] LABS: Lymphocytes % 5 % (10-50); Monocytes % 5 % (2-9); Neutrophils % 90 % (42-76); Platelet Estimate Marked Decrease; Total Cells Counted 100
[2022-10-17 08:03] LABS: Macrocytosis 2+
--- NOTE | 2022-10-17 08:32 | PC.NURSE ---
[id number] attempted to contact KAYLEE, KAYLEE phone lines not functioning properly. [phone] KAYLEE contacted, pt ruled out for donation at this time Digna Borrero [phone] 1913 [facility] contacted.
--- NOTE | 2022-10-17 11:06 | EXP.DC.SUM ---
General Admission date:: 10/13/22 Discharge date: 10/17/22 HPI HPI HPI: 87-year-old male with significant past medical history of CABG x5, COPD, chronic hypoxemic respiratory failure on 3 L at home, NYHA class IV heart failure, CKD, status post AAA repair, who presents with symptomatic bradycardia. His qauifnly-yg-fed at bedside helps supplement history. Patient states that he monitors his heart rate regularly. He has been feeling more fatigued with increased swelling in his legs over the past 1 to 2 weeks. Heart rate has been decreasing on his daily checks, running in the 40s for the past week, when it began running in the 30s today, he was concerned and decided he needed to come to the ER for evaluation. Complains of an creased cough, wanting to sleep more. Denies chest pain, increased shortness of breath, nausea, vomiting, abdominal pain, confusion. No report of altered mental status. Denies any overt bleeding. Has been afebrile. No increasing cough. Otherwise stable on his chronic 3 L nasal cannula oxygen. Cardiology was consulted due to symptomatic bradycardia. Patient started on dopamine drip for rate control. Other remarkable findings include creatinine of 2.4 (baseline 1.6) BNP elevated to 24,000. TSH essentially normal at 4.8. Admitted to medicine for monitoring overnight. Cardiology planning on potential pacemaker in the morning. 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 MUGA scan obtained 09/10/22 Impression 1.? Resting MUGA scan was performed in the standard view, calculated ejection fraction is 63% with no regional wall motion abnormality. Hospital Course Hospital Course Hospital Course: The patient was admitted to the stepdown unit with telemetry monitoring and cardiology consultation. He was maintained on IV pressor support for his low blood pressures. He required oxygen supplementation to maintain appropriate oxygen saturations. There was concern with cardiorenal syndrome with his increased creatinine. An echocardiogram was performed which identified EF 20% and severe aortic stenosis. He was presented options to transition his care for valve repair and he declined. His poor prognoses was identified and goals of care conversation occurred with the patient and family at bedside. He elected to update his CODE STATUS to DNR/DNI. Subsequently his oxygen requirements increased and transitioning off IV pressors could not be achieved. He requested to proceed with comfort care measures. His IV pressors were discontinued. Family at bedside supported decision making. On October 17, 2022 I was contacted by nursing staff for asystole identified on the monitor. I pronounced his on October 17, 2022 at 0716. I expressed my condolences to family and staff. Exam Data for Last 24 hours Vital signs and Labs for Last 24 Hours: Temp Pulse Resp BP Pulse Ox FiO2 96.5 F L 75 24 81/39 L 97 40 10/17/22 05:00 10/17/22 06:00 10/17/22 06:00 10/17/22 06:00 10/17/22 06:00 10/16/22 08:00 Laboratory Results - last 24 hr 10/15/22 05:32: Insulin-like GF I 59 10/17/22 05:33: WBC 6.3, RBC 2.94 L, Hgb 9.6 L, Hct 31.9 L, MCV 108.6 H, MCH 32.6 H, MCHC 30.0 L, RDW 16.8, Plt Count 50 L, MPV 13.8 H, Neut % (Auto) 91.8 H, Lymph % (Auto) 3.2 L, [place] % (Auto) 4.6, Eos % (Auto) 0.2, Baso % (Auto) 0.1, Neut # (Auto) 5.8, Lymph # (Auto) 0.2 L, [place] # (Auto) 0.3, Eos # (Auto) 0.0, Baso # (Auto) 0.0, Total Counted 100, Neutrophils % (Manual) 90 H, Lymphocytes % (M
== END 2022-10-17 09:00 | disposition expired | DRG 242 ==
LOC: ER 16:18 → 2ND 20:08
PROVIDERS: Internal Medicine; Nurse Practitioner Family; Admitting Provider Internal Medicine Adolescent Medicine; Emergency Provider Emergency Medicine; PCP Internal Medicine; Visit Provider Family Medicine
PROC: 0JH607Z Insertion of Cardiac Resynchronization Pacemaker Pulse Generator into Chest Subcutaneous Tissue and Fascia, Open Approach (ICD-10-PCS; principal; 2022-10-14 08:10)
DX: I44.2 Atrioventricular block, complete (principal); I50.21 Acute systolic (congestive) heart failure; I13.0 Hypertensive heart and chronic kidney disease with heart failure and stage 1 through stage 4 chronic kidney disease, or unspecified chronic kidney disease; J96.11 Chronic respiratory failure with hypoxia; N17.9 Acute kidney failure, unspecified; N18.4 Chronic kidney disease, stage 4 (severe); I42.9 Cardiomyopathy, unspecified; Z66 Do not resuscitate; Z51.5 Encounter for palliative care; Z87.891 Personal history of nicotine dependence; I25.10 Atherosclerotic heart disease of native coronary artery without angina pectoris; Z95.1 Presence of aortocoronary bypass graft; I35.0 Nonrheumatic aortic (valve) stenosis; D69.6 Thrombocytopenia, unspecified; M19.90 Unspecified osteoarthritis, unspecified site; E78.5 Hyperlipidemia, unspecified; J43.9 Emphysema, unspecified; Z85.828 Personal history of other malignant neoplasm of skin; Z99.81 Dependence on supplemental oxygen; I95.81 Postprocedural hypotension; D53.9 Nutritional anemia, unspecified
CPT/HCPCS: C1900; C2621; C1779; 33208; 33225; 36415; 71045; 80048; 80053; 80061; 81001; 82272; 82787; 82803; 82962; 83735; 83880; 84439; 84443; 84484; 85007; 85025; 87506; 93005; 93306; 94640; 94660; 99291; C1769; C1898; C9803; G0328; J0696; J1610; Q9957; Q9967; U0003; U0005